=== PATIENT | female | born 1955 | race Two or more races ===

== ENCOUNTER 2020-10-03 14:21 | Outpatient (REF) | payer MEDICAID, SELFPAY ==
--- NOTE | ~2020-10-03 | XR_ITS ---
EXAMINATION: XR CHEST CLINICAL INFORMATION: Chest pain per COMPARISON: None TECHNIQUE: 2 views of the chest were obtained. FINDINGS: No significant abnormality is noted involving the heart, lungs, mediastinum, bony thorax or soft tissues. XR/XR chest 2V IMPRESSION: Unremarkable chest exam
== END 2020-10-03 14:22 | disposition home or self-care (01) ==
LOC: HO.XRAY 14:21
PROVIDERS: PCP General Practice; Visit Provider General Practice
DX: R07.89 Other chest pain (principal)
CPT/HCPCS: 71046

== ENCOUNTER 2020-10-17 14:25 | Outpatient (REF) | payer MEDICAID, SELFPAY ==
--- NOTE | ~2020-10-17 | MM_ITS ---
EXAMINATION: MM SCREENING DIGITAL BREAST TOMOSYNTHESIS, BILATERAL CLINICAL INFORMATION: Screening. Asymptomatic. Age 65. No known family history breast cancer. Prior mammography from [place] currently unavailable. The lifetime risk of breast cancer based on the Tyrer-Cuzick Model is 4%. COMPARISON: None. TECHNIQUE: Digital breast tomosynthesis is performed in both the craniocaudal and mediolateral oblique views along with computer-aided detection (CAD). Synthesized 2D images are generated from the tomosynthesis. FINDINGS: There are scattered areas of fibroglandular density (ACR BI-RADS breast composition Category b). There are no significant masses, abnormal calcifications, or other abnormalities. The axilla and skin contours are unremarkable. MM/MM tomosynthesis screening BI IMPRESSION: No mammographic evidence of malignancy. ASSESSMENT: BI-RADS 1: Negative RECOMMENDATION: Routine annual mammography screening. This patient's information was entered into a reminder system with a target due date for their next mammogram.
== END 2020-10-17 14:26 | disposition home or self-care (01) ==
LOC: HO.MAMMO 14:25
PROVIDERS: Visit Provider General Practice
DX: Z12.31 Encounter for screening mammogram for malignant neoplasm of breast (principal)
CPT/HCPCS: 77063; 77067

== ENCOUNTER 2020-10-22 15:37 | Emergency (ER) | payer MEDICAID, SELFPAY ==
[2020-10-22 15:42] VITALS: BP 148/70; PULSE 121; RESP 18; TEMP 36.7; O2SAT 97; BMI 28.8
--- NOTE | 2020-10-22 17:25 | ED.NECK ---
HPI - Neck Pain/Injury General Chief Complaint: Neck Pain/Injury Stated Complaint: back pain Time Seen by Provider: 10/22/20 16:49 Source: patient Mode of arrival: ambulatory History of Present Illness HPI Narrative: 65-year-old female with no significant past medical history presenting to the ED complaining of neck/shoulder pain x5 days, and hemorrhoid pain secondary to straining. Reports woke up with neck pain, denies known injury/trauma or falls. Reports pain radiates to head and upper back. Denies numbness, tingling, weakness, visual changes, nausea/vomiting, urinary incontinence/retention, rectal bleeding/black stool Does not take anticoagulation MD complaint: neck pain Related Data Previous Rx's Medication Instructions Recorded acetaminophen [Tylenol Extra 500 mg PO Q6H PRN #20 tab 10/22/20 Strength] hydrocodone-acetaminophen 1 tab PO Q8H PRN 3 Days #9 tab 10/22/20 hydrocortisone [Anti-Itch (HC)] 1 appl TOPICAL BID PRN #28.35 g 10/22/20 lidocaine [Lidoderm] 1 patch TOPICAL DAILY PRN #30 ea 10/22/20 MDD remove after 12 hours naproxen 500 mg PO BID PRN 10 Days #20 tab 10/22/20 Allergies Allergy/AdvReac Type Severity Reaction Status Date / Time No Known Allergies Allergy Verified 10/22/20 16:49 Review of Systems Review of Systems: Constitutional: No Fever, No Chills ENT/Mouth: No Hearing loss, No Ear Pain, No sore throat, No Rhinorrhea Eyes: No Eye Pain, No Swelling, No Redness, No Vision Changes Cardiovascular: No Chest Pain, No SOB, No Edema Respiratory: No Cough, No Dyspnea Gastrointestinal: No Nausea, No Vomiting, No Diarrhea, No Constipation, No Abdominal pain Genitourinary: No Hematuria, No Urinary Incontinence/retention, No Urgency, No Urinary Flow Changes, + hemorrhoid Musculoskeletal: No joint pain, No Myalgias, No Joint Swelling Skin: No Skin Lesions, No rash Neuro: No Weakness, No Numbness, No Paresthesias, No Loss of Consciousness, No Dizziness, + Headache Yes all other systems are reviewed and are negative Neurologic: Denies Sensory deficit (Neuro) [facility] Social History Social History Advance Directives: No Advance Directives Information Provided: No Physical Exam Vital Signs: Vital Signs: Last Vital Signs Temp 99.2 F 10/22/20 17:27 Pulse 99 10/22/20 17:27 Resp 16 10/22/20 17:27 BP 137/71 10/22/20 17:27 Pulse Ox 97 10/22/20 17:27 Body Mass Index 28.8 Const: General: cooperative, healthy appearing, comfortable and no acute distress Orientation/consciousness: patient oriented x3 Limitations: no limitations HENMT: Head: Yes normal to inspection, Yes normocephalic and Yes atraumatic Ears: hearing grossly normal bilaterally General nose exam: Normal external nose present Face and sinus: Yes normal facial exam Eyes: General: appearance normal, both eyes and all related structures EOM: EOMs intact bilaterally Neck: Other: Limited ROM of neck secondary to pain. No midline spinous tenderness throughout. Bilateral paraspinal/bilateral trapezius muscle tenderness to palpation Neck: Yes normal visual inspection Resp: Effort & Inspection: normal respiratory effort Cardio: Rate: regular rate GI: Inspection: Yes normal to inspection Palpation (GI): Soft to palpation, nontender, no guarding and not rigid : Other: External hemorrhoid noted to 2o'clock region without evidence of thrombosis or cellulitis. No bleeding Back/Spine/Pelvis: Other: No midline thoracic/lumbar spinous tenderness or step-offs. Bilateral thoracic MSK tenderness to palpation Skin: Rashes: no rashes Wounds: no wounds Neuro: Other: No saddle anesthesia, ambulating with steady gait General: patient oriented x3, tone normal, moves all extremities and no focal motor deficits Gait exam (Neuro): Normal gait present Motor exam (neuro): 5/5 motor strength present throughout Sensory Exam: No Sensory deficit (Neuro) Extrem: General: Yes normal to inspection MDM - Neck Pain/Injury MDM Narrative Medical decision making narrative: 65-year-old female with no significant past medical history presenting to the ED complaining of neck/shoulder pain x5 days, and hemorrhoid pain secondary to straining. On exam initially tachycardic likely from pain, no midline spinous tenderness throughout or red flag symptoms. External hemorrhoid noted on rectal. Likely MSK pain/strain. Unlikely cauda equina, cord compression, CVT, cervical dissection, or intra-abdominal pathology Discharge Plan Discharge Clinical Impression: Strain of neck muscle, External hemorrhoid Patient Disposition: Home, Self-Care Instructions: Hemorrhoids (ED), Acute Neck Pain (ED) Additional Instructions: Your pain is likely musculoskeletal [place] is an opiate pain medication it can make you drowsy, do not drive, drink alcohol, or operate machinery while taking it, take only for the next 3 days for severe pain Naproxen as an anti-inflammatory / pain medication, take with food Lidoderm patches are numbing patches, apply to painful area In addition take Tylenol at home, be aware [place] has Tylenol mixed in do not exceed 4 g of Tylenol and 1 day In addition apply hydrocortisone ointment your hemorrhoids. Follow up with her primary care doctor. If symptoms persist or worsen, pain becomes unbearable, you developed urinary retention or incontinence, or weakness return to the ED Es probable que deluna dolor sea musculoesquel?alba [place] es un analg?sico opi?closing specialist que puede causarle somnolencia, no conduzca, no yvette alcohol ni opere maquinaria mientras lo karime, t?garza solo jill los pr?ximos 3 d?as para el dolor intenso Naproxeno kelsey medicamento antiinflamatorio / analg?sico, jj con alimentos. Los parches de Lidoderm son parches que adormecen, se aplican al ?umu dolorida Adem?s, tome Tylenol en casa, tenga en cuenta que Tay tiene Tylenol mezclado. No exceda los 4 g de Tylenol y 1 d?a. Adem?s aplica un kelsey?ento de hidrocortisona a tus hemorroides. Jose R un seguimiento con deluna m?dico de atenci?n primaria. Si los s?ntomas persisten o empeoran, el dolor se vuelve insoportable, desarroll? retenci?n urinaria o incontinencia, o debilidad regrese al servicio de urgencias Prescriptions: New hydrocortisone [Anti-Itch (HC)] 1 % ointment 1 appl topical BID PRN (Reason: hemorrhoids) Qty: 28.35 RF: 0 acetaminophen [Tylenol Extra Strength] 500 mg tablet 500 mg PO Q6H PRN (Reason: pain or fever) Qty: 20 RF: 0 lidocaine [Lidoderm] 5 % adhesive patch,medicated 1 patch topical DAILY MDD remove after 12 hours PRN (Reason: pain) Qty: 30 RF: 0 naproxen 500 mg tablet 500 mg PO BID PRN (Reason: pain) 10 Days Qty: 20 RF: 0 hydrocodone-acetaminophen 5-325 mg tablet 1 tab PO Q8H PRN (Reason: pain, severe) 3 Days Qty: 9 RF: 0 Referrals: Naomi Kim MD [Primary Care Provider] - 2 days Print Language: Kuwaiti
[2020-10-22 17:27] VITALS: BP 137/71; PULSE 99; RESP 16; TEMP 37.3; O2SAT 97
[2020-10-22] MEDS: Ketorolac Tromethamine 30 MG/ML VIAL IM (17:32)
[2020-10-22] MEDS: diazePAM 5 MG TABLET PO (17:33)
[2020-10-22] MEDS: Acetaminophen 325 MG TABLET 650 MG PO (17:33)
== END 2020-10-22 18:21 | disposition home or self-care (01) ==
PROVIDERS: Emergency Provider Emergency Medicine; PCP General Practice
DX: S16.1XXA Strain of muscle, fascia and tendon at neck level, initial encounter (principal); X58.XXXA Exposure to other specified factors, initial encounter; K64.4 Residual hemorrhoidal skin tags; Y93.9 Activity, unspecified; Y92.9 Unspecified place or not applicable; Y99.9 Unspecified external cause status
CPT/HCPCS: 96372; 99284; J1885

== ENCOUNTER 2021-01-31 13:33 | Outpatient (REF) | payer MEDICAID, SELFPAY ==
--- NOTE | 2021-01-31 15:26 | MHC.AU.ANR ---
Adult Audiological Evaluation Date of Visit: 01/31/21 Feed Crusher Used: Tristanian translation by her son Reason for Appointment: Audiological evaluation due to concerns for decreased hearing. Patient notes that she often has to ask for repetition and has difficulty understanding certain voices. She notes that has to turn the TV up to be able to hear it clearly. She notes that her left ear is often itchy and sometimes has white discharge. Does patient feel they have a hearing loss?: Yes If Yes, Which Ear?: Both Ears Has hearing been tested previously?: No Hearing Handicap Inventory: HHIE SCORE: 10 Based on HHIE score, patient has: Mild to moderate perceived hearing handicap Medical History: Medical History: Unremarkable Medical History Medication List: Ibuprofen PRN Otoscopy: Right Ear: Unremarkable Left Ear: Unremarkable Tympanometry: Tympanometry performed due to: To assess integrity of the middle ear system Right Ear: Normal Middle Ear System (Type A) Left Ear: Normal Middle Ear System (Type A) Hearing Evaluation: Transducer(s) Used: Insert Earphones, Bone Conduction Method: Conventional Audiometry Stimuli Used: Pure Tones Right Ear: Description of Hearing: Mild sensorineural hearing loss from 250-4000 Hz, sloping to a moderate hearing loss from 6252-6353 Hz. Left Ear: Description of Hearing: Mild sensorineural hearing loss from 250-4000 Hz, sloping to a moderate hearing loss from 8474-4273 Hz. Speech Recognition Threshold (SRT): Method Used: Monitored Live Voice Stimuli Used: Spondee Words Right Ear: 40 dBHL Left Ear: 40 dBHL Word Discrimination: Method: Recorded Lists Word Lists Used: NU-6 Right Ear: 92% at 80 dBHL Left Ear: 100% at 80 dBHL Recommendations: Audiological re-evaluation in one year. Trial with amplification is recommended. Medical clearance from a physician is required before fitting. Hearing aid(s) will be ordered after approval is received. Hearing Aid Fitting will be scheduled when all materials arrive. Patient is interested in trying binaural hearing aids. Discussed options and patient is interested in rechargeable ELIGIO style hearing aids. Diagnosis: Primary Diagnosis: H90.3 Bilateral Sensorineural Hearing Loss Services Performed: Services Performed: Comprehensive Audiological Evaluation (CPT 33568) Tympanometry (CPT 96610) Signature: Provider: Kaushik Reynolds, CCC-A
--- NOTE | 2021-01-31 15:27 | MHC.AU.MED ---
Medical Clearance for Hearing Instrumentation Date: 02/07/21 Patient Name: Carolyn Grace Date of : 1955 Primary Care Provider: Referring Provider: Isaura Moreno MD We have seen your patient on 02/07/21 and have determined that they are a candidate for amplification (See accompanying report). Specifically, they would benefit from: Hearing aid use in both ears There is a statute that addresses Medical Evaluation Requirements prior to fitting a patient with a hearing aid. According to [place] statute 265 CMR:6.03(1), (a) General. Except as provided in 265 CMR 6.03(1)(b), a supervisor shearing shall not sell a hearing aid unless the prospective user has presented to the supervisor shearing a written statement signed by a licensed physician that states that the patient's hearing loss has been medically evaluated and the patient may be considered a candidate for a hearing aid. The medical evaluation must have taken place within the preceding six months. Please note: Due to the [place] Statute referenced above, we cannot accept a signature other than that of a licensed physician. CUSHION FORMER and PA signatures cannot be accepted. I am in agreement with the above recommendation. There is no medical contraindication for hearing instrumentation. Physician Signature Date Physician Name (Printed)
--- NOTE | 2021-01-31 15:31 | MHC.AU.HAS ---
Hearing Aid Evaluation Date of Visit: 01/31/21 Registered Nurse Maternity Used: Mongolian translation by her son Historical Information: Description of Hearing: Mild to moderate sensorineural hearing loss bilaterally. Current personal amplification information, if applicable: None, new user Summary: Binaural amplification is recommended to help facilitate improved communication given Ms. Grace's hearing loss and expressed hearing difficulties. Hearing aid options were discussed. She is interested in rechargeable ELIGIO hearing aids. Hearing Aid Prescription: Based on the individual?s shared listening needs, communication environments, dexterity, desire for connectivity, and personal preferences, the following prescription for amplification has been made: Right ear: Business Risk Analyst: Phonak Model: Audeo P70-R Battery Size: Rechargeable Color: P8 - Black Date Night Caregiver: Size 0 M Type of Dome: Open Left ear: Left ear prescription to be same as Right Hearing Aid above: Business Risk Analyst: Phonak Model: Audeo P70-R Battery Size: Rechargeable Color: P8 - Black Date Night Caregiver: 0 M Type of Dome: Open Plan of Care: Medical Clearance to be requested from PCP/ENT. Hearing Instrument Fitting to be scheduled when materials arrive. Hearing aids will be ordered once MD clearance is received. Primary Diagnosis: H90.3 Bilateral Sensorineural Hearing Loss Signature: Provider: Kaushik Reynolds, CCC-A
== END 2021-01-31 13:34 | disposition home or self-care (01) ==
LOC: HO.SH 13:33
PROVIDERS: Visit Provider Family Medicine
DX: Z46.1 Encounter for fitting and adjustment of hearing aid (principal); H90.3 Sensorineural hearing loss, bilateral
CPT/HCPCS: 92557; 92567; 92591

== ENCOUNTER → 2021-02-05 14:39 | Outpatient (BNVA) | payer MEDICAID, SELFPAY | PROVIDERS: PCP General Practice; Visit Provider Internal Medicine | DX: R07.2 Precordial pain (principal); R94.31 Abnormal electrocardiogram [ECG] [EKG] | CPT/HCPCS: 93005; 99202 ==

== ENCOUNTER 2021-02-09 16:34 | Emergency (ER) | payer MEDICAID, SELFPAY ==
--- NOTE | ~2021-02-09 | XR_ITS ---
EXAMINATION: XR FOOT, RIGHT CLINICAL INFORMATION: Right heel pain. No injury COMPARISON: None TECHNIQUE: AP, lateral, and oblique views of the right foot. FINDINGS: Bones are normal anatomic alignment with no acute fracture or dislocation seen. Calcaneal heel spurs are noted at the attachment point of the Achilles tendon and plantar aponeurosis. No bony destructive lesions or erosions. No radiopaque foreign body or soft tissue gas. XR/XR foot RT min 3V IMPRESSION: Calcaneal heel spurs seen at the attachment point of the Achilles tendon and plantar aponeurosis. No acute bony abnormality.
[2021-02-09 16:53] VITALS: BP 154/78; PULSE 99; RESP 18; TEMP 36.7; O2SAT 100; BMI 28.3
--- NOTE | 2021-02-09 18:11 | ED.GENADULT ---
HPI - General Adult General Chief complaint: General Medical Stated complaint: Heel pain Time Seen by Provider: 02/09/21 17:24 Source: patient Mode of arrival: ambulatory Limitations: language barrier History of Present Illness HPI narrative: 66-year-old female presents with 2 weeks of right heel pain. The heel pain is not worse in the morning, it is bad any tenderness today. Patient has not had any prior injury. The pain is an 8/10 and is throbbing. Related Data Home Medications Medication Instructions Recorded Confirmed loratadine 10 mg tablet 10 mg PO DAILY 02/05/21 02/05/21 Previous Rx's Medication Instructions Recorded acetaminophen 500 mg tablet 500 mg PO Q6H PRN #20 tab 10/22/20 (Tylenol Extra Strength) prednisone 20 mg tablet 40 mg PO DAILY 5 Days #10 tab 02/09/21 Allergies Allergy/AdvReac Type Severity Reaction Status Date / Time No Known Allergies Allergy Verified 02/09/21 16:53 Review of Systems Constitutional: Constitutional: Denies body ache(s), Denies chills, Denies fatigue, Denies fever(s), Denies headache(s), Denies malaise and Denies weakness Eyes: Eyes: Denies diplopia ENT: Denies vertigo, Denies dizziness, Denies headache(s) and Denies throat swelling Cardiovascular: Cardiovascular: Denies chest pain, Denies syncope, Denies leg edema, Denies lightheadedness, Denies Loss of Consciousness, Denies palpitations and Denies dyspnea Respiratory: Respiratory: Denies chest congestion, Denies cough and Denies dyspnea Musculoskeletal: Comments: Right heel pain Neurologic: Denies confusion, Denies vertigo, Denies dizziness, Denies syncope, Denies headache(s) and Denies weakness Psychiatric: Psychiatric: Denies anxiety, Denies confusion and Denies depression Endocrine: Endocrine: Denies fatigue and Denies palpitations Allergic/Immunologic: Allergic/Immunologic: Denies throat swelling PMFSH Past Medical History Medical History No active medical problems Family History Family History Father No problems noted. Mother CAD (coronary artery disease) Social History Social History Patient Tobacco Use Status: Never used Tobacco Advance Directives: No Advance Directives Information Provided: No Patient : No Physical Exam Vital Signs: Vital Signs: Last Vital Signs Temp 98.0 F 02/09/21 16:53 Pulse 99 02/09/21 16:53 Resp 18 02/09/21 16:53 BP 154/78 H 02/09/21 16:53 Pulse Ox 100 02/09/21 16:53 Body Mass Index 28.3 Const: General: No confusion Nutritional Appearance: well nourished Orientation/consciousness: No confusion Limitations: no limitations Eyes: Conjunctivae: conjunctivae normal Pupils: Equal, round and reactive pupils present EOM: EOMs intact bilaterally Resp: Effort & Inspection: normal respiratory effort and able to speak in complete sentences Auscultation: clear to auscultation bilaterally, no crackles, no rales, no rhonchi and no wheezes Cardio: Rate: regular rate Rhythm: regular rhythm Heart sounds: S1 normal heart sound present and S2 normal heart sound present Skin: General skin exam: no rashes or lesions noted Neuro: General: No confusion Cranial nerves: Yes Equal, round and reactive pupils present Extrem: Right lower extremity: normal to inspection, full ROM, normal capillary refill and foot Details: normal capillary refill, normal to inspection, tenderness Location: of the calcaneus Details: with squeeze, toes with normal ROM, vascular exam Details: dorsalis pedis pulse present, posterior tibial pulse present and normal capillary refill, tendon exam Details: active flexion normal and active extension normal and motor-sensory exam Details: light-touch normal; Negative for no unusual warmth, edema noted, no abrasion, no ecchymosis and no crepitus Psych: Appearance: grossly normal Affect: normal affect Attitude: cooperative Thought process: Normal thought process present Course Course Course Narrative: 56-year-old female presents with 2 weeks of right heel pain. Patient has no pain in her right calf. Patient is tender with heel squeeze. XR shows: Calcaneal heel spurs seen at the attachment point of the Achilles tendon and plantar aponeurosis. No acute bony abnormality. Looks like plantar fasciitis. Counseled stretching exercises, prednisone, sleep with boot to keep foot flexed. Follow-up with primary care provider. Discharge Plan Discharge Clinical Impression: Plantar fasciitis of right foot Patient Disposition: Home, Self-Care Instructions: Plantar Fasciitis (ED), Plantar Fasciitis Exercises (ED) Additional Instructions: Please take Tylenol as needed. Please take prednisone as prescribed. Please stress show your right calf as we discussed. Please sleep with the boot on as it will keep your foot flexed and will help with pain. Please call your primary care provider tomorrow for follow-up appointment [facility] Tylenol seg?n sea necesario. [facility] prednisona seg?n lo prescrito. Por favor, margareth hincapi? en mostrar deluna pantorrilla derecha kelsey discutimos. Duerma con la bota puesta ya que mantendr? deluna pie flexionado y ayudar? con el dolor. Llame a deluna proveedor de atenci?n primaria ma?fernando para gerald yefri de seguimiento. Prescriptions: New prednisone 20 mg tablet 40 mg PO DAILY 5 Days Qty: 10 RF: 0 No Action acetaminophen [Tylenol Extra Strength] 500 mg tablet 500 mg PO Q6H PRN (Reason: pain or fever) Qty: 20 RF: 0 loratadine 10 mg tablet 10 mg PO DAILY RF: 0 Print Language: Serbian
[2021-02-09] MEDS: Acetaminophen 325 MG TABLET 650 MG PO (18:37)
--- NOTE | 2021-02-09 19:20 | PC.NURSE ---
THERE ARE NO WALKING BOOT IN PT SIZE FOOT. PT TO F/U WITH TO GET BOOT.
== END 2021-02-09 19:19 | disposition home or self-care (01) ==
PROVIDERS: Emergency Provider Emergency Medicine
DX: M72.2 Plantar fascial fibromatosis (principal); M79.671 Pain in right foot; Z79.899 Other long term (current) drug therapy
CPT/HCPCS: 73630; 99283; 99284

== ENCOUNTER 2021-03-12 13:59 | Outpatient (REF) | payer MEDICAID, SELFPAY | END 2021-03-12 14:00 | disposition home or self-care (01) | LOC: HO.HAP 13:59 | PROVIDERS: Visit Provider General Practice | DX: Z13.89 Encounter for screening for other disorder (principal) ==

== ENCOUNTER → 2021-03-18 13:40 | Outpatient (BNVA) | payer MEDICAID, SELFPAY | PROVIDERS: PCP General Practice; Referring Provider General Practice; Visit Provider Nurse Practitioner Family | DX: R07.2 Precordial pain (principal); R06.02 Shortness of breath; R00.2 Palpitations; R94.31 Abnormal electrocardiogram [ECG] [EKG]; Z79.899 Other long term (current) drug therapy | CPT/HCPCS: 99212 ==

== ENCOUNTER → 2021-04-02 14:37 | Outpatient (REF) | payer MEDICAID, SELFPAY ==
--- NOTE | 2021-03-12 09:53 | CA_ITS ---
Transthoracic Echocardiogram Patient (Last, First, Middle): Carolyn Kebede I Gender: Female Date of : 1955 Age: 66 Procedure Date: 03/12/2021 Procedure Type: Transthoracic Echocardiogram Location: OP Height: 160.02 cm Weight: 71.67 kg BSA: 1.75 m2 Heart Rate: bpm BP: 130 / 80 mmHg Drum Drier Operator: TIERRA Peres MD: Gilberto Duran MD Grinding Room Inspector: Christian Frias MD Symptoms: R07.2 - Precordial pain Study Quality: Fair ECG Rhythm: Sinus Conclusions: - 1. Normal LV systolic function with impaired relaxation filling pattern 2. Normal cardiac valvular Doppler 3. Normal RV systolic pressure 4. No pericardial effusion Findings Left Ventricle Normal left ventricular size, thickness, and systolic function. The visually estimated ejection fraction is between 60-65%. Spectral Doppler is indicative of an impaired relaxation filling pattern. E/E prime ratio is between 8 and 15 consistent with indeterminate filling pressures. Right Ventricle Normal right ventricular cavity size and systolic function. Atria Both atria are normal in size. There is no evidence of interatrial shunt. Aortic Valve Normal aortic valve structure and function. There is no aortic valve stenosis. There is no aortic valve regurgitation. Mitral Valve Normal mitral valve structure and function. There is trace mitral valve regurgitation. There is no mitral valve stenosis. Pulmonic Valve The pulmonic valve is likely normal. Tricuspid Valve Normal tricuspid valve structure. There is trace tricuspid valve regurgitation. The right ventricular systolic pressure is normal. The right ventricular systolic pressure is 22 mmHg. Normal right atrial pressure. There is no evidence of pulmonary hypertension. Great Vessels All visible segments of the aorta are normal in size. The pulmonary artery was not well visualized. Venous The inferior vena cava is normal in size and collapses greater than 50% with inspiration. Pericardium/Pleural There is no evidence of pericardial effusion. Prior Study Comparison No prior study available for comparison. Measurements 2D Linear Measurements IVSd: 0.84 0.6-0.9/0.6-1.0 cm LVIDd: 3.99 3.9-5.3/4.2-5.9 cm LVIDd Index: 2.28 2.4-3.2/2.2-3.1 cm/m2 LVIDs: 2.99 2.0-3.6 cm LVPWd: 0.80 0.7-1.1 cm Ao Root: 2.90 2.1-3.5 cm LA Diam: 3.50 2.7-3.8/3.0-4.0 cm LAIDs Index: 2.00 1.5-2.3 cm/m2 LV Mass: 119.23 67-162/88-224 g LV Mass Index: 68.13 43-95/49-115 g/m2 LVOT Diam: 2.00 3.0+(-)1.3 cm 2D Systolic Function EF 4C: 64.40 >55% EF 2C: 54.60 >55% EF BiP: 57.90 >55% Mitral Valve MV Pk E: 0.76 MV PK A: 0.92 MV Decel Time: 237.00 E/A: 0.80 E'Lateral: 9.14 E'Medial: 6.31 E/E' Med: 12.10 E/E' Lat: 8.30 PHT: 69.00 MVA PHT: 3.19 Decel [place]: 3.22 Aortic Valve AoV Pk Fran: 1.58 AoV Mn Fran: 1.05 AoV VTI: 0.36 AoV Pk Grad: 10.00 Aov Mn Grad: 5.00 HASMUKH Cont.VTI: 1.84 LVOT LVOT Pk Fran: 0.91 LVOT Mn Fran: 0.73 LVOT VTI: 0.21 LVOT Pk Grad: 3.00 LVOT Mn Grad: 2.00 LVOT Diam: 2.00 LVOT Area: 3.14 Diastolic Function MV Pk E: 0.76 MV Pk A: 0.92 E/A: 0.80 E'Medial: 6.31 E/E' Med: 12.10 E' Laterial: 9.14 E/E' Lat: 8.30 Right Ventricle TAPSE (mm): 1.83 TVS' Fran: 9.14 Tricuspid Valve TR Pk Fran: 2.20 TR Pk Grad: 19.00 RA Press: 3.00 RVSP: 22.00 Great Vessels Aorta Ao Root-2D: 2.90 2.0-3.7 cm Ao Asc: 2.90 2.1-3.4 cm Ao Arch: 2.30 Updated in Other Vendor System with Status of Final Christian Frias MD electronically signed on 03/12/2021 2:57:49 PM with status of Final
--- NOTE | 2021-03-12 09:53 | CA_ITS ---
Acquisition Time: 2021-03-12 10:47:35 Total Exercise Time: 00:06:21 Test Indications: R07.2 - Precordial pain Medications: Protocol: MOD RAFAELA Max HR: 157 BPM 100% of Pred: 156 BPM Max BP: 174/070 mmHG Max Work Load: 3.6 METS Exercise stress test with exercise 6 min 21 sec of Modified Rafaela protocol, achieving 3.5 MET workload and 100% MPHR, with moderate shortness of breath, no chest discomfort, without arrythmia, with normotensive response to exercise, without EKG changes meeting criteria for ischemia. Initially a Rafaela protocol was attempted X2 and patient had much difficulty walking on treadmill. She was better able to walk with the modified Rafaela protocol. Test reviewed with Dr Cruz. Referred By: Gilberto Duran Overread By: LEANDRA BERNAL
== END ==
LOC: HO.CARD 14:37
PROVIDERS: Visit Provider Internal Medicine
DX: R07.2 Precordial pain (principal)
CPT/HCPCS: 93017; 93306

== ENCOUNTER 2021-04-09 14:29 | Outpatient (REF) | payer MEDICAID, SELFPAY | END 2021-04-09 14:30 | disposition home or self-care (01) | LOC: HO.HAP 14:29 | PROVIDERS: Visit Provider General Practice | DX: Z46.1 Encounter for fitting and adjustment of hearing aid (principal); H90.3 Sensorineural hearing loss, bilateral | CPT/HCPCS: V5011; V5020; V5160; V5261 ==

== ENCOUNTER → 2021-04-22 14:24 | Outpatient (BNVA) | payer MEDICAID, SELFPAY | PROVIDERS: PCP General Practice; Referring Provider General Practice; Visit Provider Nurse Practitioner Family | DX: R07.2 Precordial pain (principal); R06.02 Shortness of breath; R00.2 Palpitations; R94.31 Abnormal electrocardiogram [ECG] [EKG] | CPT/HCPCS: 99212 ==

== ENCOUNTER → 2021-04-23 13:29 | Outpatient (REF) | payer MEDICAID, SELFPAY ==
--- NOTE | 2021-04-23 13:39 | ECG_ITS ---
Hook-up date: 2021-04-23 14:00:00 Duration: 41:32:00 Test Indications: Palpitations Medications: [id number] QRS complexes 1 Ventricular ectopics which represent <1 % of total QRS comp. 7 Supraventricular ectopics which represent <1 % of total QRS comp. * Paced QRS complexs which represent % of total QRS comp. VENTRICULAR ECTOPY 1 Isolated 0 Bigeminal Cycles 0 Couplets 0 Runs 0 Beats in Runs * Beats LONGEST at * BPM at :: -- * Beats FASTEST at * BPM at :: -- SUPRAVENTRICULAR ECTOPY 5 Isolated 1 Couplets 0 Runs 0 Beats in Runs * Beats LONGEST at * BPM at :: -- * Beats FASTEST at * BPM at :: -- HEART RATES 59 MIN at 05:06:35 2021-04-24 79 AVG 118 MAX at 13:19:33 2021-04-24 LONGEST RR 1.2240 secs at 08:26:27 2021-04-24 S-T LEVELS Channel 1 - 128 mm at 14:00:00 2021-04-23 - 128 mm at 14:00:00 2021-04-23 Channel 2 - 128 mm at 14:00:00 2021-04-23 - 128 mm at 14:00:00 2021-04-23 Channel 3 - 128 mm at 03:31:91 -- - 128 mm at 03:31:91 Basic rhythm Normal sinus rhythm No long pause or profound bradycardia Rare ectopics Patient did not report any symptoms in the diary Referred By: Kristy Amaro Overread By: LILIBETH MANSFIELD MD
== END ==
LOC: HO.CARD 13:29
PROVIDERS: Visit Provider General Practice
DX: R00.2 Palpitations (principal); R06.02 Shortness of breath
CPT/HCPCS: 93226

== ENCOUNTER 2021-04-23 14:46 | Outpatient (REF) | payer MEDICAID, SELFPAY | END 2021-04-23 14:47 | disposition home or self-care (01) | LOC: HO.HAP 14:46 | PROVIDERS: Visit Provider General Practice | DX: Z13.89 Encounter for screening for other disorder (principal) ==

== ENCOUNTER → 2021-04-30 08:33 | Outpatient (REF) | payer MEDICAID, SELFPAY ==
--- NOTE | ~2021-04-30 | NM_ITS ---
Myocardial perfusion study Indication: Abnormal EKG to evaluate for myocardial ischemia Technique: The patient was brought in for a Lexiscan perfusion study on 04/30/2021. Patient performed low-level exercise and was injected 0.4 mg of Lexiscan intravenously. Within a minute of injection, 25 mCi of sestamibi was given intravenously. Images were obtained using the SPECT gamma camera interlaced with the gating device. Images were obtained in supine position. Resting perfusion study was performed on 05/01/2021. Patient was administered 25 mCi of sestamibi intravenously at rest. Images were then obtained in supine position. Images obtained with and without CT attenuation. Total DLP 95 mGy-cm. Images were processed with the software and compared side to side in short axis, horizontal long axis and vertical long axis views. Findings: The stress perfusion study showed non attenuated images show normal uptake of radiotracer in all segments of LV myocardium. Attenuation corrected images show mildly reduced uptake in the apex and inferoapical wall of the LV myocardium.. The gated study shows normal LV systolic function with calculated LVEF of 59%. LV cavity is mildly dilated size. The gated study shows normal systolic wall thickening and contraction of segments. Resting study shows non attenuated images show normal uptake of radiotracer in all segments of LV myocardium. Gating at rest reveals normal systolic wall motion with visually estimated ejection fraction at greater than 60%. The findings are consistent with normal myocardial perfusion. NM/NM landry perf SPECT rest & str Impression: 1. Myocardial perfusion imaging study shows normal myocardial perfusion 2. Gated LVEF is 59% 3. Transient ischemic dilatation not present EKG is nondiagnostic for ischemia
--- NOTE | 2021-04-30 08:36 | CA_ITS ---
Acquisition Time: 2021-04-30 09:39:57 Total Exercise Time: 00:02:00 Test Indications: Abnormal ECG Medications: Protocol: LEXISCAN Max HR: 115 BPM 73% of Pred: 156 BPM Max BP: 122/072 mmHG Max Work Load: 1.0 METS Pharmacological stress test with Lexiscan injection, while sitting and kicking her legs, without anginal symptoms, without arrythmia, with normotensive response to injection, with nondiagnostic EKG for ischemia. At 7 min recovery she reported some tightness in her chest and had new mild nasal congestion which was treated with Aminophylline 75mg to reverse Lexiscan with resolution of symptoms. Nuclear images pending. Test reviewed with Dr Frias. Referred By: Kristy Amaro Overread By: KRISTY AMARO
== END ==
LOC: HO.CARD 08:33
PROVIDERS: PCP General Practice; Visit Provider Nurse Practitioner Family
DX: R00.2 Palpitations (principal); R06.02 Shortness of breath; R07.2 Precordial pain; R94.31 Abnormal electrocardiogram [ECG] [EKG]
CPT/HCPCS: 78452; 93017; A9500; J0280; J2785

== ENCOUNTER → 2021-05-21 13:25 | Outpatient (BNVA) | payer MEDICAID, SELFPAY | PROVIDERS: PCP General Practice; Referring Provider General Practice; Visit Provider Nurse Practitioner Family | DX: R07.2 Precordial pain (principal); R06.02 Shortness of breath; R00.2 Palpitations; R94.31 Abnormal electrocardiogram [ECG] [EKG] | CPT/HCPCS: 99212 ==

== ENCOUNTER 2022-01-05 13:54 | Outpatient (REF) | payer MEDICARE, MEDICAID, SELFPAY ==
--- NOTE | 2022-01-05 16:19 | MHC.AU.HFU ---
Hearing Instrument Follow-Up- Binaural Date of Visit: 01/05/22 Right Ear: Stem Assembler: Phonak Model: Audeo P70-R Serial Number: [id number] Repair Warranty: 05/27/2024 Loss and Damage Warranty: 05/27/2024 Battery Size: Rechargeable Color: P8 - Black Ground Support Equipment Mechanic: Size 0 M Type of Dome: Small open Type of Wax Guard: Cerushield Dispensed By: [facility] Date of Fittin04/09/2021 Left Ear: Stem Assembler: Phonak Model: Audeo P70-R Serial Number: [id number] Repair Warranty: 05/27/2024 Loss and Damage Warranty: 05/27/2024 Battery Size: Rechargeable Color: P8 - Black Ground Support Equipment Mechanic: 0 M Type of Dome: Small open Type of Wax Guard: Cerushield Dispensed By: [facility] Date of Fittin04/09/2021 Follow-Up Summary: Patient reports the hearing aids have not been loud enough since they were initially fit and would like them louder. Cleaned both aids, changed wax guards and domes. Cleaned microphones. Both aids amplifying. Datalogging shows average of 14 hours wearing time. Increased both aids overall 4 dB per to patient's comfort while in office. Patient will be receiving reminder card for audiologic re-evaluation within the next few months. Recommendations: Please contact our clinic with any questions or concerns. Diagnosis Code(s): Primary Diagnosis: H90.3 Bilateral Sensorineural Hearing Loss Services Performed: [facility] Non-Quantity Charges: HACHECKB (MH>1 yr or new to us) Face to face appointment Signature: Provider: So Walls, [facility]-A
== END 2022-01-05 13:55 | disposition home or self-care (01) ==
LOC: HO.HAP 13:54
PROVIDERS: Visit Provider General Practice
DX: Z46.1 Encounter for fitting and adjustment of hearing aid (principal); H90.3 Sensorineural hearing loss, bilateral
CPT/HCPCS: 92593

== ENCOUNTER 2022-02-19 14:45 | Outpatient (REF) | payer MEDICARE, MEDICAID, SELFPAY ==
--- NOTE | ~2022-02-19 | XR_ITS ---
EXAMINATION: XR HIP, RIGHT CLINICAL INFORMATION: Chronic right hip pain. COMPARISON: None. TECHNIQUE: 2 views of the right hip. FINDINGS: Bones and soft tissues are normal. No fracture. Alignment is anatomic. Hip joint space is maintained. Incidental finding of sclerosis along the pubic symphysis, suggestive of pubic symphysitis. XR/XR hip RT min 2V IMPRESSION: Unremarkable right hip exam.
== END 2022-02-19 14:46 | disposition home or self-care (01) ==
LOC: HO.XRAY 14:45
PROVIDERS: PCP General Practice; Visit Provider General Practice
DX: M25.551 Pain in right hip (principal)
CPT/HCPCS: 73502

== ENCOUNTER 2022-02-24 13:02 | Outpatient (REF) | payer MEDICARE, MEDICAID, SELFPAY ==
--- NOTE | 2022-02-25 08:40 | MHC.AU.HFU ---
Hearing Instrument Follow-Up- Binaural Date of Visit: 02/24/22 Deputy Attorney General Used: Serbian- In Person Right Ear: Retoucher: Phonak Model: Audeo P70-R Serial Number: [id number] Repair Warranty: 05/27/2024 Loss and Damage Warranty: 05/27/2024 Battery Size: Rechargeable Color: P8 - Black Low Altitude Air Defense Officer: Size 0 M Type of Dome: Small open Type of Wax Guard: Cerushield Dispensed By: [facility] Date of Fittin04/09/2021 Left Ear: Retoucher: Phonak Model: Audeo P70-R Serial Number: [id number] Repair Warranty: 05/27/2024 Loss and Damage Warranty: 05/27/2024 Battery Size: Rechargeable Color: P8 - Black Low Altitude Air Defense Officer: 0 M Type of Dome: Small open Type of Wax Guard: Cerushield Dispensed By: [facility] Date of Fittin04/09/2021 Follow-Up Summary: Carolyn returned for routine hearing aid maintenance. She is overall satisfied with her hearing aids, especially since the volume was increased at her last visit. No programming changes were made today as her hearing remains stable. The hearing aids were cleaned, microphones vacuumed, and domes and wax guards replaced. Recommendations: Hearing instrument maintenance in 6 months, or sooner if needed. Please contact our clinic with any questions or concerns. Diagnosis Code(s): Primary Diagnosis: H90.3 Bilateral Sensorineural Hearing Loss Signature: Provider: Konrad Gu, [facility]
== END 2022-02-24 13:03 | disposition home or self-care (01) ==
LOC: HO.SH 13:02
PROVIDERS: Visit Provider General Practice
DX: Z01.118 Encounter for examination of ears and hearing with other abnormal findings (principal); H90.3 Sensorineural hearing loss, bilateral
CPT/HCPCS: 92557

== ENCOUNTER 2022-04-14 11:00 | Outpatient (RCR) | payer MEDICARE, MEDICAID, SELFPAY ==
[2022-04-01 13:09] VITALS: BP 148/75; PULSE 85; O2SAT 98
== END 2022-04-27 11:55 | disposition home or self-care (01) ==
LOC: HO.PT 11:00
PROVIDERS: PCP General Practice; Visit Provider General Practice
DX: M25.551 Pain in right hip (principal)
CPT/HCPCS: 97110; 97162

== ENCOUNTER 2023-01-29 12:50 | Outpatient (REF) | payer MEDICARE, MEDICAID, SELFPAY ==
--- NOTE | ~2023-01-29 | US_ITS ---
EXAMINATION: US VENOUS ULTRASOUND WITH DOPPLER LOWER EXTREMITY, RIGHT CLINICAL INFORMATION: Right leg swelling COMPARISON: None available. TECHNIQUE: Ultrasound of the deep veins is performed from the hip to the calf with compression sonography and color and pulse Doppler assessment. Spectral analysis with color-flow imaging is performed. FINDINGS: There is normal venous compression and respiratory variation and augmented flow. The visualized common femoral vein, superficial femoral vein, profunda femoral vein, popliteal vein, and the trifurcation region shows no evidence of deep venous thrombosis. There is no significant popliteal fossa cyst. If the patient's symptoms persist, followup ultrasound in 5 days 7 days might be of value to exclude proximal propagation from a non-visualized calf vein. US/US venous duplex LE RT IMPRESSION: No DVT demonstrated in the right lower extremity.
== END 2023-01-29 12:51 | disposition home or self-care (01) ==
LOC: HO.US 12:50
PROVIDERS: PCP General Practice; Visit Provider Nurse Practitioner Primary Care
DX: M79.604 Pain in right leg (principal)
CPT/HCPCS: 93971

== ENCOUNTER 2023-02-15 11:46 | Outpatient (REF) | payer OTHER, SELFPAY ==
[2023-02-15 13:53] LABS: Alanine Aminotransferase 13 U/L (0-31); Albumin Level 4.3 g/dL (3.5-5.0); Alkaline Phosphatase 143 U/L (39-117); Anion Gap 15 (12-20); Aspartate Amino Transferase 22 U/L (5-31); Bilirubin Total 0.7 mg/dL (0.0-1.0); Blood Urea Nitrogen 15 mg/dL (9-16); Calcium 9.9 mg/dL (8.4-10.2); Carbon Dioxide 25 mmol/L (22-29); Chloride 107 mmol/L (96-108); Cholesterol 201 mg/dL (<200); Estimated Glomerular Filt Rate > 60; Glucose Random 104 mg/dL (60-115); HDL Cholesterol 48 mg/dL (>40); LDL Cholesterol Calculated 132 mg/dL (<100); Potassium 4.6 mmol/L (3.3-5.1); Sodium 142 mmol/L (135-145); Total Protein 7.4 g/dL (6.5-8.0); Triglycerides 108 mg/dL (<150)
[2023-02-15 13:58] LABS: Estimated Average Glucose 117 mg/dL; Hemoglobin A1c % 5.7 % (<6.0)
== END 2023-02-15 11:47 | disposition home or self-care (01) ==
LOC: HO.HHCL 11:46
PROVIDERS: Visit Provider General Practice
DX: Z00.00 Encounter for general adult medical examination without abnormal findings (principal); R74.8 Abnormal levels of other serum enzymes
CPT/HCPCS: 36415; 80053; 80061; 83036

== ENCOUNTER 2023-03-09 12:55 | Outpatient (AMB) | payer MEDICARE, SELFPAY ==
--- NOTE | 2023-03-09 12:59 | MHC.OFFVIS ---
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 Complaints include pain over varicosities, swelling of lower extremities, cramping, fatigue, and heaviness of the lower extremities. It has been affecting there daily activities including walking. It is noted more so in right leg. Patient denies any previous venous surgery or injections. Patient denies any history of DVT/ PE. Patient denies any history of phlebitis. Trial of compression includes - [id number] They now present for vascular evaluation regarding their varicose veins. PFSH Medical History Hypercholesteremia No active medical problems Surgical History No pertinent past surgical history Family History Father No problems noted. Mother CAD (coronary artery disease) Social History Alcohol intake: never Patient Tobacco Use Status: Never used Tobacco Review of Systems Const Reports as per HPI ENT Reports no additional complaints Card Denies chest pain, Denies chest pain at rest and Denies chest pain with activity Resp Denies chest congestion and Denies cough GI Reports no additional complaints Musc Details: pain over varicosities, aching of lower extremities, swelling, cramping, heaviness and tiredness, itching Denies abnormal gait Skin/Breast Reports pruritus and Denies wounds Neuro Reports no additional complaints and Denies abnormal gait Psych Denies no additional complaints Physical Exam Vital Signs: BMI result Body Mass Index 31.0 Const General: cooperative, healthy appearing and comfortable Orientation/consciousness: oriented to person, oriented to place and oriented to time Neck Carotids: no bruits Chest Chest palpation & inspection: normal inspection of the chest and normal palpation of entire chest wall Resp Effort & Inspection: normal respiratory effort and able to speak in complete sentences Cardio Rate: regular rate Heart sounds: S1 normal heart sound present and S2 normal heart sound present Peripheral pulses: Peripheral pulses 2+ throughout GI Inspection: Yes normal to inspection Skin Other: +2 edema, large rope-like varicosities greater than 4 mm CEAP Classification C4 - skin color changes Ep - Etiology Primary As - superficial veins P - reflux General skin exam: dry skin Neuro General: oriented to person, oriented to place and oriented to time Extrem Right lower extremity: full ROM, normal capillary refill and edema Left lower extremity: full ROM, normal capillary refill and edema Psych Mental Status: mental status grossly normal Assessment & Plan Assessment & Plan (1) Varicose veins of right lower extremity with inflammation: Code(s): I83.11 - Varicose veins of right lower extremity with inflammation Plan: In short, the patient has evidence of venous insufficiency. I have discussed the pathophysiology with the patient. In addition I have provided informational material regarding venous disease to the patient. We have discussed conservative measures including compression, elevation, and exercise. I have also provided a handout regarding appropriate use of compression stockings and where to purchase good compression stockings as well. I have taken the liberty of ordering venous insufficiency testing with the patient. They will follow up with me after testing. The patient had an opportunity to ask questions regarding the treatment plan. All questions were answered. Imaging studies, laboratory studies and physical exam results were discussed and reviewed in detail. No major barriers to understanding were identified. The patient expressed understanding and agreement with the above treatment plan. The patient is aware they should contact our office by phone for worsening of the current condition or the appearance of new symptoms. Thank you for allowing me to participate in the vascular care of this patient. If you have any questions or concerns regarding the treatment for the above condition please do not hesitate to contact me. The office telephone contact is [phone]. This note is constructed using voice recognition software. While every effort has been made to ensure accuracy, supervisor boiler repair errors may have been included. Thank you for allowing me to participate in the care of your patient. Yours sincerely, Rikki Serrano MD, FACS, R.P.V.I. Orders: Orders US venous duplex LE BI 1 Week I83.11 - Varicose veins of right lower extremity with inflammation Coding Level of Care Code New Pt Level 4 (13522) Diagnoses Varicose veins of right lower extremity with inflammation I83.11
[2023-03-09 13:01] VITALS: BMI 31.0
== END 2023-03-09 13:31 | disposition home or self-care (01) ==
PROVIDERS: PCP General Practice; Visit Provider Surgery Vascular Surgery
DX: I83.11 Varicose veins of right lower extremity with inflammation (principal)
CPT/HCPCS: 99203

== ENCOUNTER → 2023-03-09 12:55 | Outpatient (BNVA) | payer MEDICARE, MEDICAID, SELFPAY | PROVIDERS: PCP General Practice; Visit Provider Surgery Vascular Surgery ==

== ENCOUNTER 2023-03-10 11:13 | Outpatient (REF) | payer MEDICARE, MEDICAID, SELFPAY | END 2023-03-10 11:14 | disposition home or self-care (01) | LOC: HO.MAMMO 11:13 | PROVIDERS: PCP General Practice; Visit Provider General Practice | DX: Z12.31 Encounter for screening mammogram for malignant neoplasm of breast (principal) | CPT/HCPCS: 77063; 77067 ==

== ENCOUNTER → 2023-03-10 11:30 | Outpatient (BNV) | payer MEDICARE, MEDICAID, SELFPAY | PROVIDERS: PCP General Practice; Visit Provider Radiology Diagnostic Radiology | DX: Z12.31 Encounter for screening mammogram for malignant neoplasm of breast (principal) | CPT/HCPCS: 77063; 77067 ==

== ENCOUNTER 2023-03-24 12:20 | Outpatient (REF) | payer MEDICARE, MEDICAID, SELFPAY ==
--- NOTE | ~2023-03-24 | US_ITS ---
EXAMINATION: US LOWER EXTREMITY VENOUS (REFLUX EXAM), BILATERAL CLINICAL INDICATION: Chronic venous insufficiency with lower extremity varicose veins with inflammation COMPARISON: None. TECHNIQUE: Color flow triplex imaging and compression Doppler was performed to evaluate both the deep and the superficial systems bilaterally. To evaluate the superficial system, the examination was performed in the upright position. Color-flow Doppler ultrasound and compression ultrasound were utilized. In addition, maneuvers were utilized to demonstrate reflux. FINDINGS: 1. DEEP VENOUS ULTRASOUND OF THE RIGHT LOWER EXTREMITY: Common Femoral Vein: Compressible, normal respiratory variation and augmented flow. Femoral Vein: Compressible, normal color flow and augmentation. Popliteal Vein: Compressible, normal augmentation. Deep Reflux: There is no evidence of reflux in the deep system in either the common femoral vein or the popliteal vein. There is no evidence of a Mcelroy's cyst. 2. SUPERFICIAL ULTRASOUND WITH DOPPLER OF RIGHT LOWER EXTREMITY: GREAT SAPHENOUS VEIN: Saphenofemoral Junction: 0.5 cm; Reflux: 0 ms Proximal Thigh: 0.4 cm; Reflux: 0 ms Mid Thigh: 0.3 cm; Reflux: 0 ms Above Knee: 0.2 cm; Reflux: 0 ms At Knee: 0.2 cm; Reflux: 0 ms Below Knee: 0.2 cm; Reflux: 0 ms Mid Calf: 0.2 cm; Reflux: 0 ms Ankle: 0.2 cm; Reflux: 0 ms DUPLICATED MEDIAL GREAT SAPHENOUS VEIN: Diameter: 0.2 cm Reflux: None DUPLICATED LATERAL GREAT SAPHENOUS VEIN: Diameter: None imaged Reflux: NA SMALL SAPHENOUS VEIN: Proximal: 0.2 cm; Reflux: 0 ms Distal: 0.2 cm; Reflux: 0 ms VEIN OF GIACOMINI: Size: NA Reflux: NA PERFORATORS: Location: None significant Size: NA Reflux: NA VARICOSITIES: Location: None significant. There are multiple small varicose veins measuring less than 3 mm in the thigh and calf Size: NA Reflux: NA 3. DEEP VENOUS ULTRASOUND OF THE LEFT LOWER EXTREMITY: Common Femoral Vein: Compressible, normal respiratory variation and augmented flow. Femoral Vein: Compressible, normal color flow and augmentation. Popliteal Vein: Compressible, normal augmentation. Deep Reflux: There is no evidence of reflux in the deep system in either the common femoral vein or the popliteal vein. There is a Mcelroy's cyst in the left popliteal fossa measuring 2.4 x 1.2 x 1.4 cm 4. SUPERFICIAL ULTRASOUND WITH DOPPLER OF LEFT LOWER EXTREMITY: GREAT SAPHENOUS VEIN: Saphenofemoral Junction: 0.5 cm; Reflux: 0 ms Proximal Thigh: 0.3 cm; Reflux: 0 ms Mid Thigh: 0.3 cm; Reflux: 0 ms Above Knee: 0.3 cm; Reflux: 0 ms At Knee: 0.2 cm; Reflux: 0 ms Below Knee: 0.2 cm; Reflux: 0 ms Mid Calf: 0.1 cm; Reflux: 0 ms Ankle: 0.2 cm; Reflux: 0 ms DUPLICATED MEDIAL GREAT SAPHENOUS VEIN: Diameter: None imaged Reflux: NA DUPLICATED LATERAL GREAT SAPHENOUS VEIN: Diameter: 0.3 cm Reflux: None SMALL SAPHENOUS VEIN: Proximal: 0.2 cm; Reflux: 0 ms Distal: 0.1 cm; Reflux: 0 ms VEIN OF GIACOMINI: Size: NA Reflux: NA PERFORATORS: Location: None significant Size: NA Reflux: NA VARICOSITIES: Location: None significant. There are multiple small varicose veins measuring less than 3 mm within the thigh and calf Size: NA Reflux: NA US/US venous duplex LE BI IMPRESSION: Right: No significant venous insufficiency or reflux right lower extremity Left: No significant venous insufficiency or reflux in the left lower extremity. Mcelroy's cyst
== END 2023-03-24 12:21 | disposition home or self-care (01) ==
LOC: HO.US 12:20
PROVIDERS: PCP General Practice; Visit Provider Surgery Vascular Surgery
DX: I83.11 Varicose veins of right lower extremity with inflammation (principal)
CPT/HCPCS: 93970

== ENCOUNTER 2023-04-02 10:41 | Outpatient (REF) | payer MEDICARE, MEDICAID, SELFPAY ==
[2023-04-02 11:35] LABS: Appearance Urine Clear; Color Urine Yellow; Glucose Urine UA Negative (Negative); Leukocyte Esterase Urine Small (1+) (Negative); Nitrite Urine Negative (Negative); Specific Gravity - Urine 1.025 (1.005-1.025); UMIC TRIGGER UACC YES; Urine Blood Negative (Negative); Urine Ketones Negative (Negative); Urine Protein Negative (Neg-Trace)
[2023-04-02 11:56] LABS: Bacteria Urine None Seen (None Seen); Hyaline Casts Urine 0-2 /LPF (0-2); UACC Culture Trigger YES; WBC Urine 0-5 /HPF (0-5)
== END 2023-04-02 10:42 | disposition home or self-care (01) ==
LOC: HO.HHCL 10:41
PROVIDERS: Visit Provider General Practice
DX: R30.0 Dysuria (principal)
CPT/HCPCS: 81001; 87086

== ENCOUNTER 2023-04-27 13:58 | Outpatient (AMB) | payer MEDICARE, MEDICAID, SELFPAY ==
--- NOTE | 2023-04-27 14:01 | A.OFFVIS_ITS ---
Intake Intake Visit Reasons: FU Intake Note: pt here for fallow on 03/24/23 with hx of VV pt states she is still having pain in both LE she also is experiencing swelling in both legs. Data Review Specialist Required: Yes Data Review Specialist Name: kenneth auguste Accompanied by: Daughter Allergies No Known Allergies Allergy (Verified 04/27/23 14:04) HPI FU HPI Details Very pleasant 68-year-old female presents for follow-up regarding venous disease. She notes some swelling and discomfort of the lower extremities. In particular she is concerned about numbness of the legs and feet. She does describe a history of some back pain as well. She now presents for follow-up with venous insufficiency testing. [facility] Medical History Hypercholesteremia No active medical problems Surgical History No pertinent past surgical history Family History Father No problems noted. Mother CAD (coronary artery disease) Social History Alcohol intake: never Patient Tobacco Use Status: Never used Tobacco Review of Systems Const Reports as per HPI ENT Reports no additional complaints Card Denies chest pain, Denies chest pain at rest and Denies chest pain with activity Resp Denies chest congestion and Denies cough GI Reports no additional complaints Musc Details: pain over varicosities, aching of lower extremities, swelling, cramping, heaviness and tiredness, itching Denies abnormal gait Skin/Breast Reports pruritus and Denies wounds Neuro Reports no additional complaints and Denies abnormal gait Psych Denies no additional complaints Physical Exam Const General: cooperative, healthy appearing and comfortable Orientation/consciousness: oriented to person, oriented to place and oriented to time Neck Carotids: no bruits Chest Chest palpation & inspection: normal inspection of the chest and normal palpation of entire chest wall Resp Effort & Inspection: normal respiratory effort and able to speak in complete sentences Cardio Rate: regular rate Heart sounds: S1 normal heart sound present and S2 normal heart sound present Peripheral pulses: Peripheral pulses 2+ throughout GI Inspection: Yes normal to inspection Skin Other: +2 edema, multiple spider telangiectasias General skin exam: dry skin Neuro General: oriented to person, oriented to place and oriented to time Extrem Right lower extremity: full ROM, normal capillary refill and edema Left lower extremity: full ROM, normal capillary refill and edema Psych Mental Status: mental status grossly normal Results Reviewed Results Reviewed: Brief summary of venous insufficiency testing is as follows: right great saphenous vein: negative right small saphenous vein: negative right accessory vein: none present left great saphenous vein: negative left small saphenous vein: negative left accessory vein: none present Please note there is no evidence of any venous aneurysms or significant tortuosity Assessment & Plan Assessment & Plan (1) Varicose veins of right lower extremity with inflammation: Code(s): I83.11 - Varicose veins of right lower extremity with inflammation Plan: In short patient is negative for any significant venous insufficiency. Should symptoms continue would recommend neurologic evaluation. We did discuss continued conservative measures including compression elevation and exercise. The patient will follow up with us on an as-needed basis. Thank you for allowing us to assist in her care. If there are questions or concerns please do not hesitate to contact us. Coding Level of Care Code Est Pt Level 4 (49623) Diagnoses Varicose veins of right lower extremity with inflammation I83.11
== END 2023-04-27 14:33 | disposition home or self-care (01) ==
PROVIDERS: PCP General Practice; Visit Provider Surgery Vascular Surgery
DX: I83.11 Varicose veins of right lower extremity with inflammation (principal)
CPT/HCPCS: 99213

== ENCOUNTER → 2023-04-27 13:58 | Outpatient (BNVA) | payer MEDICARE, MEDICAID, SELFPAY | PROVIDERS: PCP General Practice; Visit Provider Surgery Vascular Surgery | DX: I83.11 Varicose veins of right lower extremity with inflammation (principal) | CPT/HCPCS: 99212 ==

== ENCOUNTER 2023-09-03 13:09 | Outpatient (AMB) | payer MEDICARE, MEDICAID, SELFPAY ==
[2023-09-03 13:13] VITALS: BP 141/73; PULSE 80; BMI 31.0
--- NOTE | 2023-09-03 13:13 | A.OFFVIS_ITS ---
Vital Signs 09/03/23 13:13 Height 5 ft 1 in Weight 164 lb BMI 31.0 BP 141/73 H Blood Pressure Location Lt brachial Position Sitting Pulse 80 Intake Visit Reasons: Colonoscopy Screening Intake Note: Carolyn presents in the office as a new patient colonoscopy screening. CC: She states that she is here today because she is having inflammation in her stomach. [employer] Black Belt Required: Yes [employer] Black Belt Name: [id number] Allergies No Known Allergies Allergy (Verified 09/03/23 13:13) HPI HPI Colonoscopy Screening: Details: 68 year old? female with past medical history of depression, GERD, insomnia is here today for pre colonoscopy screening.? Patient was sent to us by her PCP.? This is his/her first colonoscopy screening.? Patient reports epigastric discomfort all the time. Patient reports feeling always bloated. Has been on omeprazole for a long time, however reports that and has not been working, reports that she has been taking it every day. Denies any personal or family history of colon polyps, or cancer.? Denies history of difficulty with sedation or anesthesia in the past.? Negative for history of sleep apnea.? Denies any history of cardiac, renal, pulmonary, or hepatic disease.?? No history of infectious? diseases like hepatitis A, B, C, HIV or tuberculosis.? Patient is not on any anticoagulation therapy. PFSH Medical History Hypercholesteremia No active medical problems Surgical History No pertinent past surgical history Family History Father Colon cancer Mother CAD (coronary artery disease) Social History Alcohol intake: never Patient Tobacco Use Status: Never used Tobacco Review of Systems Const Denies weight gain and Denies weight loss ENT Reports no additional complaints, Denies dysphagia and Denies odynophagia Card Reports no additional complaints Resp Reports no additional complaints GI Reports abdominal pain (Epigastric), Denies belching, Denies melena, Reports bloating, Denies change in bowel habits, Reports constipation, Denies dysphagia, Denies excessive flatus, Denies dyspepsia, Denies heartburn, Denies diarrhea, Denies loose stools, Denies nausea, Denies odynophagia and Denies vomiting Reports no additional complaints Musc Reports no additional complaints Neuro Reports no additional complaints Psych Reports no additional complaints Endo Reports no additional complaints Physical Exam Vital Signs: Last Vital Signs Pulse 80 09/03/23 13:13 BP 141/73 H 09/03/23 13:13 BMI result Body Mass Index 31.0 Const General: healthy appearing and no acute distress Nutritional Appearance: obese Orientation/consciousness: patient oriented x3 Resp Effort & Inspection: normal respiratory effort, able to speak in complete sentences, no tracheal deviation and symmetric chest movement Auscultation: clear to auscultation bilaterally Cardio Rate: regular rate GI Inspection: Yes normal to inspection, No distended and Yes obesity Palpation (GI): Soft to palpation, not firm, nontender and No hepatosplenomegaly present Auscultation: normal bowel sounds General: Yes no CVA tenderness Back/Spine/Pelvis Back: no CVA tenderness Skin General skin exam: elasticity normal, turgor normal and dry skin Neuro General: patient oriented x3 Psych Appearance: grossly normal Mental Status: mental status grossly normal Assessment & Plan Assessment & Plan (1) Screen for colon cancer: Code(s): Z12.11 - Encounter for screening for malignant neoplasm of colon (2) Epigastric pain: Code(s): R10.13 - Epigastric pain (3) GERD (gastroesophageal reflux disease): Code(s): K21.9 - Gastro-esophageal reflux disease without esophagitis Qualifiers: Esophagitis presence: esophagitis presence not specified Qualified Code(s): K21.9 - Gastro-esophageal reflux disease without esophagitis (4) Constipation: Code(s): K59.00 - Constipation, unspecified Qualifiers: Constipation type: slow transit constipation Qualified Code(s): K59.01 - Slow transit constipation (5) Abdominal bloating: Code(s): R14.0 - Abdominal distension (gaseous) Plan Patient denies any cardiac or respiratory symptoms. ?Denies any issues with anesthesia in the past.? Denies any history of sleep apnea.? No history infectious diseases in the past or present.? Not on any anticoagulation therapy.? No family or personal history of colon cancer or polyps.? Patient denies melena, hematochezia, unintentional weight loss or ribbon like stools.? Reports to be constipated will start patient on senna. Patient was also encouraged to increase fluid intake and activity to promote better bowel motili ty. Stop omeprazole and start pantoprazole 40 mg half an hour before breakfast. Patient will be scheduled for upper endoscopy as well to rule out gastritis, esophagitis, Wiggins's, H pylori, gastric or duodenal ulcers. Patient will return in 6 weeks for re-evaluation. 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 They were given the opportunity to ask questions and all questions Thank you for allowing me to participate in her care Medications: New sennosides (Natural Senna Laxative) 17.2 mg (2 x 8.6 mg) PO BEDTIME 60 tabs 3RF constipation K59.00 - Constipation, unspecified
== END 2023-09-03 14:08 | disposition home or self-care (01) ==
PROVIDERS: PCP General Practice; Visit Provider Nurse Practitioner Family
DX: K21.9 Gastro-esophageal reflux disease without esophagitis (principal); K59.01 Slow transit constipation; Z12.11 Encounter for screening for malignant neoplasm of colon
CPT/HCPCS: 99203

== ENCOUNTER → 2023-09-03 13:09 | Outpatient (BNVA) | payer MEDICARE, MEDICAID, SELFPAY | PROVIDERS: PCP General Practice; Visit Provider Nurse Practitioner Family | DX: Z12.11 Encounter for screening for malignant neoplasm of colon (principal); K21.9 Gastro-esophageal reflux disease without esophagitis; K59.01 Slow transit constipation; R10.13 Epigastric pain; R14.0 Abdominal distension (gaseous) | CPT/HCPCS: 99202 ==

== ENCOUNTER 2023-12-14 09:11 | Outpatient (REF) | payer MEDICARE, MEDICAID, SELFPAY ==
[2023-12-14 11:54] LABS: Alanine Aminotransferase 14 U/L (0-31); Albumin Level 4.1 g/dL (3.5-5.0); Alkaline Phosphatase 139 U/L (39-117); Anion Gap 11 (12-20); Aspartate Amino Transferase 20 U/L (5-31); Bilirubin Total 0.5 mg/dL (0.0-1.0); Blood Urea Nitrogen 15 mg/dL (9-16); Calcium 9.5 mg/dL (8.4-10.2); Carbon Dioxide 27 mmol/L (22-29); Chloride 107 mmol/L (96-108); Estimated Glomerular Filt Rate > 60; Glucose Random 104 mg/dL (60-115); Potassium 3.7 mmol/L (3.3-5.1); Sodium 141 mmol/L (135-145)
[2023-12-14 12:12] LABS: B Type Natriuretic Peptide 11 pg/mL (<100)
== END 2023-12-14 09:12 | disposition home or self-care (01) ==
LOC: HO.HHCL 09:11
PROVIDERS: Visit Provider General Practice
DX: R60.0 Localized edema (principal)
CPT/HCPCS: 36415; 80053; 83880

== ENCOUNTER 2024-02-10 14:00 | Outpatient (RCR) | payer MEDICARE, MEDICAID, SELFPAY | END 2024-02-21 12:09 | disposition home or self-care (01) | LOC: HO.PT 14:00 | PROVIDERS: PCP General Practice; Visit Provider General Practice | DX: M25.551 Pain in right hip (principal) | CPT/HCPCS: 97110; 97140; 97162 ==

== ENCOUNTER 2024-03-17 13:43 | Outpatient (REF) | payer MEDICARE, MEDICAID, SELFPAY ==
[2024-03-18 01:43] LABS: CT PCR NOT DETECTED (Not Detect.); NG PCR NOT DETECTED (Not Detect.)
[2024-03-18 16:04] LABS: Bacterial Vaginosis PCR NEGATIVE (Negative); Candida Group PCR NOT DETECTED (Not Detect); Candida glab krusei PCR NOT DETECTED (Not Detect); Trichomonas vaginalis PCR NOT DETECTED (Not Detect)
[2024-03-20 11:55] LABS: HPV 16,18/45 See PAP report
== END 2024-03-17 13:44 | disposition home or self-care (01) ==
LOC: HO.HHCLNP 13:43
PROVIDERS: Visit Provider General Practice
DX: Z12.4 Encounter for screening for malignant neoplasm of cervix (principal); N89.8 Other specified noninflammatory disorders of vagina
CPT/HCPCS: 0352U; 87491; 87591; 87624; 88175

== ENCOUNTER 2024-07-06 18:20 | Outpatient (REF) | payer MEDICARE, SELFPAY ==
--- OUTSIDE RECORDS SUMMARY | 2024-07-06 18:22 | XMS_ITS | Encounter Summary ---
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 Name Role Phone Naomi Kim MD Primary Care Provider [phone] Encounter Details Date Type Department Care Team (Latest Contact Info) Description 07/06/2024 Travel Social History Tobacco Use Types Packs/Day Years Used Date Smoking Tobacco: Never Smokeless Tobacco: Never Alcohol Use Standard Drinks/Week Comments Never 0 (1 standard drink = 0.6 oz pur e alcohol) Alcohol Answer Date Recorded Frequency of Alcohol Consumption Not on file 02/15/2023 Average Number of Drinks Not on file 023 Frequency of Binge Drinking Not on file 06/2022 Score 0 02/15/2023 Depression Answer Date Recorded Patient Health Questionnaire-9 Score 9 09/10/2023 Patient Health Questionnaire-9 Score 9 09/10/2023 Last PHQ-9: Questionnaire Data Not on file 0 09/10/2023 Housing Stability Answer Date Recorded What is your housing situation today? I have marily faustin 03/10/[address] you li ve. Do you have problems with any of the following? None of the above 03/10/2023 Food Insecurity Answer Date Recorded Within the past 12 months, y ou worried that your food would run out before you got money to buy more: Never True 03/10/2023 Within the past 12 months,th e food you bought just didn't last and you didn't have enough money to get more: Never True Transportation Answer Date Recorded In the past 12 months, has l ack of transportation kept you from medical appts, meetings, work or from getting things needed for daily living? No 03/10/2023 Utilities Answer Date Recorded In the past 12 months, has t he electric, gas, oil or water company threatened to shut off services in your home? No 03/10/2023 Depression Answer Date Recorded Patient Health Questionnaire-2 Score 2 09/10/2023 Internet Access Answer Date Recorded Internet Access Q1 Yes 01/14/2024 Internet Access Q2 Not on file 01/14/2024 Comments Unknown Sex and Gender Information Value Date Recorded Sex Assigned at Female 03/16/2022 10:37 AM EDT Legal Sex Female 10:37 AM EDT Gender Identity Female 03/16/2022 10:37 AM EDT Sexual Orientation Straight 03/16/2022 10 :37 AM EDT documented as of this encounter Plan of Treatment Not on file documented as of this encounter Visit Diagnoses Not on filedocumented in this encounter Additional Health Concerns Assessment Noted Time PHQ-9 Depression Total Score: 9 09/10/19 24 3:15 PM EDT documented as of this encounter Care Teams Valve Repairer Reclamation Relationship Specialty Start Date End Date Naomi Kim MD [address] [place] [id number] PCP - General Family Medicine 08/26/20 documented as of this encounter
--- OUTSIDE RECORDS SUMMARY | 2024-07-06 18:22 | XMS_ITS | Clinical Summary ---
Author Organization [employer] Address [address] [place] [address] 7[address] [place] [address] Care Team Providers Care Injection Molding Machine Tender Name Role Phone Naomi Kim MD Primary Care Provider [phone] Allergies No known active allergies Medications melatonin 5 MG tabletIndicatio ns:Primary insomnia TAKE 2 TABLETS BY MOUTH EVERY DAY AT BEDTIME FOR SLEEP 3 Active naproxen (Naprosyn) 250 MG tabletIndicatio ns:Muscle spasms of neck Take 1 tablet (250 mg) by mouth with breakfast and with evening meal. 60 tablet 5 3 Active triamcinolone (Kenalog) 0.1 % creamIndication s:Xerosis of skin,Chronic pruritus Mix with cerave and apply after showers 80 g 3 3 Active Senna-Time 8.6 MG tablet TAKE 2 TABLETS BY MOUTH EVERY DAY AT BEDTIME NEEDED FOR CONSTIPATION 4 Active Diclofenac Sodium 1 % gelIndications: Muscle spasms of neck APPLY 2 GRAMS TOPICALLY AFFECTED AREA(S) FOUR TIMES DAILY 100 g 11 4 Active Petrolatum 42 % ointment Apply 1 Application topically if needed in the morning and at bedtime (dry skin). 100 g 3 4 Active DULoxetine (Cymbalta) [address] capsule Take 1 capsule (20 mg) by mouth Once per day. Do not crush or chew. 90 capsule 3 4 12/08/19 25 Active fluticasone (Flonase) 50 MCG/ACT nasal sprayIndication s:Stuffy nose Administer 1-2 sprays into each nostril Once per day for 14 days. Shake gently. Before first use, prime pump. After use, clean tip and replace cap. 16 g 11 4 Active loratadine (Claritin) 10 MG tabletIndicatio ns:Chronic pruritus Take 1 tablet (10 mg) by mouth in the morning. 90 tablet 3 4 Active omeprazole (PriLOSEC) [address] capsuleIndicati ons:Gastroesoph ageal reflux disease without esophagitis Take 1 capsule (20 mg) by mouth before breakfast. Do not crush or chew. 90 capsule 3 4 Active magnesium 200 MG tabletIndicatio ns:Left leg pain Take 1 tablet (200 mg) by mouth Once per day. 90 tablet 3 4 Active Active Problems Problem Noted Date Diagnosed Date Stuffy nose 04/15/2024 Assessment & Plan (04/15/2024 12:09 PM EST): Will continue Flonase and antihistamine for long-term maintenance Pt says she cannot breathe through her nose most of the time Will refer to ENT for potenital [employer]SULTANT scope and to rule out mechanical nasal airway obstruction Left leg pain 04/15/2024 Assessment & Plan (04/15/2024 12:07 PM EST): Trial Magnesium Environmental allergies 04/15/2024 Gastroesophageal reflux disease without esophagi tis 04/15/2024 Screening for cervical cancer 03/17/2024 Depression, recurrent 09/14/2023 Assessment & Plan (09/14/2023 8:46 AM EDT): Start Cymbalta for depression and all over body pain, to target central sensitization, poor sleep, and depression Elevated alkaline phosphatase level 02/17/2023 Adult general medical exam 02/17/2023 Primary insomnia 02/17/2023 Nevus of cheek 02/17/2023 Chronic pruritus 02/15/2023 Mild cognitive disorder 11/21/2021 Muscle spasms of neck 11/21/2021 Pain of right hip joint 11/21/2021 Assessment & Plan (12/17/2023 11:35 AM EDT): Refer to PT Anxiety 09/23/2020 Assessment & Plan (09/14/2023 8:42 AM EDT): ALEK 7 score of 5 Chest pain 09/23/2020 Resolved Problems Problem Noted Date Diagnosed Date Resolved Date Left otitis media 12/29/2023 04/15/2024 Assessment & Plan (12/29/2023 3:28 PM EDT): -no indication of infection or need for abx use. -recommended sleeping with affected side away from the pillow. -ER and return precautions given. -Pt already on Claritin will trial Zyrtec. Sinusitis 05/01/2023 04/15/2024 Assessment & Plan (05/01/2023 9:14 PM EST): here today covid and flu neg Symptoms consistent w sinusitis -flonase, amoxicillin,tylenol -alarm signs and symptoms discussed Paronychia of finger of left hand 02/17/2023 04/15/2024 Moderate depressive episode 11/21/2021 04/15/2024 Encounters Date Type Department Care Team Description 07/06/2024 1:20 PM EST Office Visit [facility] [address] [place] [phone] Urinary tract infection symptoms (Primary Dx); Lumbar back pain 07/06/2024 Travel 04/25/2024 10:00 AM EST Office Visit [facility] [address] [place] [phone] Moody Gan MD Cough in adult patient (Primary Dx); Right ear pain; Stuffy and runny nose; Acute otitis media, unspecified otitis media type 04/18/2024 Telephone [facility] [address] [place] [phone] Naomi Kim MD 04/17/2024 5:20 PM EST Office Visit [facility] [address] [place] [phone] Vandana Beavers MD Sore throat (Primary Dx); Viral upper respiratory tract infection 04/10/2024 2:00 PM EST Office Visit [facility] [address] [place] [address] Naomi Kim MD Nasal congestion (Primary Dx); Chronic pruritus; Anxiety; Left leg pain; Environmental allergies; Gastroesophageal reflux disease without esophagitis; Stuffy nose 04/10/2024 Travel from Last 3 Months Immunizations Name Administration Dates Next Due Influenza High-dose Quadrivalent Preservative Fr ee 02/15/2023,01/29/2022 Influenza injectable quadrivalent preservative f ree 02/07/2021 Influenza, High Dose Seasonal, Preservative Free 02/21/2024 Pneumococcal Conjugate PCV 20 02/15/2023 RSV Bivalent 11/02/2023 Tdap 11/21/2021 Zoster, Recombinant 12/04/2020,10/02/2020 Social History Tobacco Use Types Packs/Day Years Used Date Smoking Tobacco: Never Smokeless Tobacco: Never Tobacco Cessation:Counseling Given: Not Answered Alcohol Use Standard Drinks/Week Comments Never 0 [...] Orientation Straight 03/16/2022 10 :37 AM EDT Last Filed Vital Signs Vital Sign Reading Time Taken Comments Blood Pressure 132/87 07/06/2024 1:22 PM EST Pulse 98 07/06/2024 1:22 PM EST Temperature 37.1 ??C (98.7 ??F) 07/06/2024 1:22 PM ES T Respiratory Rate 18 07/06/2024 1:22 PM EST Oxygen Saturation 97% 07/06/2024 1:22 PM EST Inhaled Oxygen Concentration - - Weight 72.2 kg (159 lb 3.2 oz) 07/06/2024 1:22 P M EST Height 154.9 cm (5' 1 ) 04/10/2024 2:02 PM EST Body Mass Index 30.08 04/10/2024 2:02 PM EST Plan of Treatment Health Maintenance Due Date Last Done Comments CT Colonography 1955 Colonoscopy 1955 Colorectal Cancer Screening 1955 FIT DNA/Cologuard 1955 FIT 1955 FOBT 1955 Sigmoidoscopy 1955 Alcohol/Substance Use Screening 1969 COVID-19 Vaccine ( season) 2024 04/05/2023, 04/01/2021, 08/28/2020 Mammogram 03/10/2024 03/10/2023, 10/17/2020 Depression Monitoring (PHQ-9) 03/11/2024 09/10/2023, 09/10/2023 Depression Screening 09/09/2024 09/10/2023, 09/10/19 24 SDOH Screening 11/29/2024 11/30/2023 Tobacco Screening 04/17/2025 04/17/2024 DTaP/Tdap/Td Vaccines (2 - Td or Tdap) 11/22/2031 11/21/2021 Hepatitis C Screening Completed 09/20/2020 HPV/Cotest Discontinued 10/02/2020 Zoster Vaccines Completed 12/04/2020, 10/02/2020 Pneumococcal Vaccine: 50+ Years Completed 02/15/2023 RSV Patients and Patients Aged 60 years or older Completed 11/02/2023 Influenza Vaccine Completed 02/21/2024, , 01/29/2022, Additional history exists Cervical Cancer Screening Discontinued Pap Smear Discontinued 03/17/2024, 10/02/2020 HIB Vaccines Aged Out No longer eligi ble based on patient's age to complete this topic HPV Vaccines Aged Out No longer eligi ble based on patient's age to complete this topic Hepatitis A Vaccines Aged Out No long er eligible based on patient's age to complete this topic Hepatitis B Vaccines Aged Out No long er eligible based on patient's age to complete this topic IPV Vaccines Aged Out No longer eligi ble based on patient's age to complete this topic Meningococcal Vaccine Aged Out No jhonatan yg eligible based on patient's age to complete this topic RSV under 20 months Aged Out No longe r eligible based on patient's age to complete this topic Rotavirus Vaccines Aged Out No longer eligible based on patient's age to complete this topic Procedures Procedure Name Priority Date/Time Associated Diagnosis Comments POCT URINALYSIS DIPSTICK Routine 07/06/2024 1:58 PM EST Urinary tract infection symptoms POCT INFLUENZA B (ID NOW RAPID MOLECULAR) Routine 04/25/2024 9:57 AM EST Cough in adult patient POCT INFLUENZA A (ID NOW RAPID MOLECULAR) Routine 04/25/2024 9:57 AM EST Cough in adult patient POCT RAPID COVID ANTIGEN Routine 04/25/2024 9:55 AM EST Cough in adult patient POC CHUNG ID NOW STREP A Routine 04/17/2024 5:10 PM EST Sore throat POCT INFLUENZA B (ID NOW RAPID MOLECULAR) Routine 04/17/2024 5:10 PM EST Sore throat POCT INFLUENZA A (ID NOW RAPID MOLECULAR) Routine 04/17/2024 5:10 PM EST Sore throat POCT RAPID COVID ANTIGEN Routine 04/17/2024 5:10 PM EST Sore throat PAP SMEAR Routine 03/17/2024 11:36 AM EDT BI MAMMOGRAM SCREENING TOMOSYNTHESIS BILATERAL Routine 03/10/2023 11:36 AM EDT HPV MRNA E6/E7 REFLEX TO HPV 16, 18/45 Routine 10/02/2020 10:16 AM EDT ZZZ HISTORICAL HEPATITIS C AB W/REFL TO HCV RNA, QN, PCR Routine 09/20/2020 3:34 PM EDT from Last 3 Months or Most Recently Relevant to Health Maintenance Results * (ABNORMAL) POCT urinalysis dipstick manually resulted (07/06/2024 1:58 PM EST) Color, UA Yellow Clarity, UA Clear Glucose, UA Negative Bilirubin, UA Few 15 Comment:small Ketones, UA Positive Comment:trace Spec Grav, UA 1.025 Blood, UA Negative Negative, None Detected pH, UA 5.5 Protein, UA Negative Urobilinogen, UA 1.0 Leukocytes, UA Few 15(A) Negative, Rare, Trace Comment:small Nitrite, UA Negative Negative, None Detected Urine 07/06/2024 1:58 PM EST us Lynne Diop NP POINT OF CARE TEST ENTER/EDIT O RDERABLES Final Result * Influenza B (ID NOW Rapid Molecular) (04/25/2024 9:57 AM EST) Only the most recent of2 resultswithin the time period is included. [facility] Influenza B Negative Negative, Indeterminate [facility] Swab 04/25/2024 9:57 AM EST us Moody Gan MD POINT OF CARE TEST ENTER/EDIT OR DERABLES Final Result Performing Organization Address [facility] de Phone Number [facility] [address] [place] [phone] * Influenza A (ID NOW Rapid Molecular) (04/25/2024 9:57 AM EST) Only the most recent of2 resultswithin the time period is included. [facility] Influenza A Negative Negative, Indeterminate [facility] Swab 04/25/2024 9:57 AM EST us Moody Gan MD POINT OF CARE TEST ENTER/EDIT OR DERABLES Final Result Performing Organization Address [facility] de Phone Number [facility] [address] [place] [phone] * POCT Rapid COVID Ag (04/25/2024 9:55 AM EST) Only the most recent of2 resultswithin the time period is included. [facility] Rapid COVID Ag Negative Swab 04/25/2024 9:55 AM EST Result [facility] us Moody Gna MD POINT OF CARE TEST ENTER/EDIT OR DERABLES Final Result * POCT Rapid Strep A CHUNG ID NOW (04/17/2024 5:10 PM EST) [facility] Rapid Strep A Screen Negative Negative, None Detected QC Media Lot # [id number] Lot# Expiration Date [id number] Swab 04/17/2024 5:10 PM EST us Vandana Beavers MD POINT OF CARE TEST ENTER/ED IT ORDERABLES Final Result * Pap Smear (03/17/2024 11:36 AM EDT) 03/17/2024 11:3 6 AM EDT 03/20/2024 8:30 AM EST Narrative [facility] - 03/22/2024 11:46 AM EST ----- ------- Name: Carolyn Kebede I ? Age/Sex: 69/F ? : 1955 Unit#: [id number] ?? Attend Dr: Naomi Kim ?Re03/17/24 ?Status: DEP REF ? Location: HO.HHCLNP ? Disch: ? ----- ------- SPEC : [id number] ?RECD: 03/20/24-829 ? STATUS: ??SOUT ? REQ NUM: [id number] ? MAURO: 03/17/24-1135 ? SUBM DR: Naomi Kim ? ENTERED: ??03/20/24-1027 ?SP TYPE: Pap Smr ?OTHR : ? ORDERED: ??Pap Smear ? Interpretation ?? Satisfactory for evaluation. ?? Negative for intraepithelial lesion or malignancy. ?? Atrophic. ?? Mild inflammation. ? HPV High Risk: ??Negative ? HPV Genotyping 16: ??Negative ?? HPV Genotyping 18: ??Negative ?Clinical Information LMP: Unknown date Previous PAP test: WN Other history: No postmenopausal bleeding ? Material Received ?? ThinPrep-Cervical ----- ------- Signed (signature on file) JOE Duron (ASCP) 03/22/24 1146 ? ----- ------- ? END OF REPORT ? us Naomi Kim MD LAB CYTOLOGY ORDERABLES Final Result Performing Organization Address [facility]/State/ZIP Co de Phone Number [facility] [address] [place] [address] [phone] * BI Mammogram Screening Tomosynthesis Bilateral (03/10/2023 11:36 AM EDT) Anatomical Region Laterality Modality Breast Bilateral Mammography 03/10/2023 11:3 6 AM EDT Narrative 03/29/2023 5:16 AM EST ? [facility] ? [address] ?[place] [address] ? Mammography Report ? Signed ? Patient: Carolyn Kebede I ?MR# ?? : [id number] ? : 1955 ?Acct:[id number] ? Age/Sex: 68 / F ?ADM Date: 03/10/ ? Loc: HO.MAMMO ? Attending Dr: Naomi Kim MD ? Ordering Physician: Naomi Kim ?Results: 1Negative ? Date of Service: 03/10/ ?Follow Up: 1 Year From Orig ?? inal Mammogram ? Procedure(s): MM tomosynthesis screening BI ?? Accession Number(s): [id number] ? cc: Naomi Kim ? EXAMINATION: ?? MM SCREENING DIGITAL BREAST TOMOSYNTHESIS, BILATERAL ? CLINICAL INFORMATION: ? Screening. Asymptomatic. ? COMPARISON: ?? Mammography: This study is compared with prior exams dating back to ?? 2020. ? TECHNIQUE: ?? Digital breast tomosynthesis is performed in both the craniocaudal and ?? mediolateral oblique views along with computer-aided detection (CAD). ?? Synthesized 2D images are generated from the tomosynthesis. ? FINDINGS: ?? There are scattered areas of fibroglandular density (ACR BI-RADS breast ?? composition Category b). ? There are no significant masses, abnormal calcifications, or other ?? abnormalities. ? MM/MM tomosynthesis screening BI ?? IMPRESSION: ?? No mammographic evidence of malignancy. ? ASSESSMENT: ? BI-RADS BI-RADS 1 - Negative ? RECOMMENDATION: ?? Routine annual mammography screening. ? 1 year F/U ? This examination should not preclude the clinical evaluation of a ?? suspicious palpable abnormality. ? This patient's information was entered into a reminder system with a ?? target due date for their next mammogram. ? Dictated By: ?Christie Catalan MD ? Signed By: ?<Electronically signed by Christie Catalan MD in OV> ? 03/29/23 05 ? DD/ 1136 ? TD/TT: ? Job Analyst: ? Procedure Note Kate Silveira - 03/29/2023 [facility] [address] [place] [address] Dr. [place], [place] [address] Mammography Report Signed Patient: Carolyn Kebede IMR# : [id number] : 7Acct:[id number] Age/Sex: 68 / FADM Date: 03/10/23 Loc: [facility] Attending Dr: Naomi Kim MD Ordering Physician: Gonzalo Kimults: 1Negative Date of Service: 03/10/23Follow Up: 1 Year From Orig inal Mammogram Procedure(s): MM tomosynthesis screening BI Accession Number(s): [id number] cc: Naomi Kim EXAMINATION: MM SCREENING DIGITAL BREAST TOMOSYNTHESIS, BILATERAL CLINICAL INFORMATION: Screening. Asymptomatic. COMPARISON: Mammography: This study is compared with prior exams dating back to 2020. TECHNIQUE: Digital breast tomosynthesis is performed in both the craniocaudal and mediolateral oblique views along with computer-aided detection (CAD). Synthesized 2D images are generated from the tomosynthesis. FINDINGS: There are scattered areas of fibroglandular density (ACR BI-RADS breast composition Category b). There are no significant masses, abnormal calcifications, or other abnormalities. MM/MM tomosynthesis screening BI IMPRESSION: No mammographic evidence of malignancy. ASSESSMENT: BI-RADS BI-RADS 1 - Negative RECOMMENDATION: Routine annual mammography screening. 1 year F/U This examination should not preclude the clinical evaluation of a suspicious palpable abnormality. This patient's information was entered into a reminder system with a target due date for their next mammogram. Dictated By: Christie Catalan MD Signed By: <Electronically signed by Christie Catalan MD in OV> 03/29/23 0513 DD/ 1136 TD/TT: Job Analyst: Naomi Kim MD [facility] BI PROCEDURES Final Result * HPV mRNA E6/E7 REFLEX TO HPV 16, 18/45 (10/02/2020 10:16 AM EDT) HPV nRNA E6/E7 Not Detected Not Detected [facility] Comment: Methodology: Travel Attendants-Mediated Amplification This assay detects E6/E7 viral messenger RNA (mRNA) from 14 high-risk HPV types (16,18,31,33,35,39,45,51,52,56,58,59,66,68). ? The analytical performance characteristics of this assay have been determined by [facility]. The modifications have not been cleared or approved by the FDA. This assay has been validated pursuant to the CLIA regulations and is used for clinical purposes. ?? For additional information, please refer to http://education.Just[employer].Myrl/faq/ALS876c3 (This link if provided for information/ educational purposes only.) 10/02/2020 10:1 6 AM EDT us Naomi Kim MD LAB CYTOLOGY ORDERABLES Final Result [facility] [address] * HEPATITIS C AB W/REFL TO HCV RNA, QN, PCR (09/20/2020 3:34 PM EDT) HEPATITIS C ANTIBODY NON-REACT BENITO NON-REACT BENITO [facility] INDEX 0.01 <1.00 [facility] Comment: ?? HCV antibody was non-reactive. There is no laboratory ?? evidence of HCV infection. ?? In most cases, no further action is required. However, if recent HCV exposure is suspected, a test for HCV RNA (test code 52349) is suggested. ?? For additional information please refer to http://[employer]IN.[employer]/faq/ZHT91s7 (This link is being provided for informational/ educational purposes only.) ?? 09/20/2020 3:34 PM EDT Naomi Kim MD HISTORICAL/NON ORDERABLE LABS Final Result Performing Organization Address City/[facility]/ZIP Co de Phone Number [facility] [address] from Last 3 Months or Most Recently Relevant to Health Maintenance Insurance [facility] [employer]PLETE Care Teams Injection Molding Machine Tender Relationship Specialty Start Date End Date Naomi Kim MD [address] [place] [phone] PCP - General Family Medicine 08/26/20
--- OUTSIDE RECORDS SUMMARY | 2024-07-06 18:22 | XMS_ITS | Encounter Summary ---
Author Organization [employer] Address [address] [facility] [address]t [place] [address] Care Team Providers Care Associate Professor Of Biology Name Role Phone Naomi Kim MD Primary Care Provider [phone] Encounter Details Date Type Department Care Team ([facility] st Contact Info) Description 12/02/2022 Orders Only [facility] [address] [place], [place] [phone] Kareen Ortiz LPN Social History Tobacco Use Types Packs/Day Years Used Date Smoking Tobacco: Never Smokeless Tobacco: Never Alcohol Use Standard Drinks/Week Comments Never 0 (1 standard drink = 0.6 oz pur e alcohol) Comments Unknown Sex and Gender Information Value Date Recorded Sex Assigned at Female 03/16/2022 10:37 AM EDT Legal Sex Female 10:37 AM EDT Gender Identity Female 03/16/2022 10:37 AM EDT Sexual Orientation Straight 03/16/2022 10 :37 AM EDT documented as of this encounter Plan of Treatment Not on file documented as of this encounter Visit Diagnoses Not on filedocumented in this encounter Care Teams Associate Professor Of Biology Relationship Specialty Start Date End Date Naomi Kim MD [address] [place] [address] PCP - General Family Medicine 08/26/20 documented as of this encounter
--- OUTSIDE RECORDS SUMMARY | 2024-07-06 18:22 | XMS_ITS | Encounter Summary ---
Author Organization [employer] Address [address] [facility] [address]t [place] [address] Care Team Providers Care Gas Pumping Station Helper Name Role Phone Naomi Kim MD Primary Care Provider [phone] Reason for Visit * Reason Onset Date Comments triage 10/01/2022 Encounter Details Date Type Department Care Team ([facility] st Contact Info) Description 10/01/2022 Telephone [facility] [address] [place], [place] [phone] Naomi Kim MD [address] [place], [place] [phone] triage Social History Tobacco Use Types Packs/Day Years [...] Orientation Straight 03/16/2022 10 :37 AM EDT COVID-19 Exposure Response Date Recorded In the last 10 days, have yo u been in contact with someone who was confirmed or suspected to have Coronavirus/COVID-19? No / Unsure 10/15/2022 1:42 PM EDT documented as of this encounter Miscellaneous Notes * Telephone Encounter - Richa Granda RN - 10/01/2022 3:02 PM EDT Triage call with [employer] Manager [place] [id number] Pt reports a ball behind right knee. Pt denies pain, Pt reports this swelling has been growing for 2 months and is now the size of a golf ball. Pt denies pain but, reports when walking it bothers Pt. Pt is able to walk with some difficulty and a limp on the right leg. Pt has varicose veins and hip pain as well. Pt reports the area has some redness and is warm to touch. Pt agrees with disposition apt with TIFFANIE Felipe 10/15 @ 200pm. Protocol Used: Knee Swelling (Adult) Protocol-Based Disposition: See in Office or Video Visit within 2 Weeks Positive Triage Question: * Knee swelling is a chronic symptom (recurrent or ongoing AND present > 4 weeks) * All higher-acuity triage questions were negative Care Advice Discussed: * Cold Pack for Knee Swelling * Elastic Bandage (FATIMAH Wrap) for Knee Swelling * Pain Medicines * Rest Your Knee for the Next Couple Days * Reasons To Call Back - Severe pain - Fever occurs - Looks infected (spreading redness, red streak) - You become worse * Telephone Encounter - Mina Craig - 10/01/2022 2:33 PM EDT Symptom: Leg Pain - Not From Injury Outcome: Schedule an urgent appointment (within 1 hour) or talk to a nurse or provider soon Reason: Severe pain now, states pt has a mass on leg. The caller accepted this outcome Please contact at [phone] documented in this encounter Plan of Treatment Not on file documented as of this encounter Visit Diagnoses Not on filedocumented in this encounter Care Teams Gas Pumping Station Helper Relationship Specialty Start Date End Date Naomi Kim MD [address] [place] [address] PCP - General Family Medicine 08/26/20 documented as of this encounter
--- OUTSIDE RECORDS SUMMARY | 2024-07-06 18:22 | XMS_ITS | Encounter Summary ---
Author Organization [employer] Address [address] [facility] 7t [place] [address] Care Team Providers Care Cartography Teacher Name Role Phone Naomi Kim MD Primary Care Provider [phone] Encounter Details Date Type Department Care Team (Late st Contact Info) Description 11/10/2022 Orders Only [facility] [address] [place], [place] [phone] Shanice Navas LPN Social History Tobacco Use Types Packs/Day [...] PM EDT documented as of this encounter Plan of Treatment Not on file documented as of this encounter Visit Diagnoses Not on filedocumented in this encounter Care Teams Cartography Teacher Relationship Specialty Start Date End Date Naomi Kim MD [address] [place] [address] PCP - General Family Medicine 08/26/20 documented as of this encounter
--- OUTSIDE RECORDS SUMMARY | 2024-07-06 18:22 | XMS_ITS | Encounter Summary ---
Author Organization [email or web address] Address [address] [place] [address] Care Team Providers Care Bathroom Tiling Professional Name Role Phone Naomi Kim MD Primary Care Provider [phone] Reason for Visit * Reason Comments uti symptoms Encounter Details Date Type Department Care Team ([facility] st Contact Info) Description 07/06/2024 1:20 PM EST Office Visit [facility] [address] [place] [address] Urinary tract infection symptoms (Primary Dx); Lumbar back pain Social History Tobacco Use Types Packs/Day Years [...] AM EDT documented as of this encounter Last Filed Vital Signs Vital Sign Reading [...] oz) 07/06/2024 1:22 P M EST Height - - Body Mass Index 30.08 04/10/2024 2:02 PM EST documented in this encounter Plan of Treatment Scheduled Orders Name Type Priority Associated Diagnoses Orde r Schedule Culture, Urine, Routine Microbiology Routine Urinary tract infection symptoms Ordered: 07/06/2024 documented as of this encounter Procedures Procedure Name Priority Date/Time Associated Diagnosis Comments POCT URINALYSIS DIPSTICK Routine 07/06/2024 1:58 PM EST Urinary tract infection symptoms documented in this encounter Results * (ABNORMAL) POCT urinalysis dipstick manually [...] None Detected Urine 07/06/2024 1:58 PM EST [facility] GREEN END MAN POINT OF CARE TEST ENTER/EDIT O RDERABLES Final Result documented in this encounter Visit Diagnoses Diagnosis Urinary tract infection symptoms- Primary Lumbar back pain Lumbago documented in this encounter Additional Health Concerns Assessment Noted Time PHQ-9 Depression Total Score: 9 09/10/19 24 3:15 PM EDT documented as of this encounter Care Teams Bathroom Tiling Professional Relationship Specialty Start Date End Date Naomi Kim MD [address] [place] [id number] PCP - General Family Medicine 08/26/20 documented as of this encounter
--- OUTSIDE RECORDS SUMMARY | 2024-07-06 18:22 | XMS_ITS | Encounter Summary ---
Author Organization [employer] Address [address] [place] [address] [address] [place] [address] Care Team Providers Care Washcloth Folder Name Role Phone Naomi Kim MD Primary Care Provider [phone] Encounter Details Date Type Department Care Team (Latest Contact Info) Description 03/17/2021 Abstract [facility] CONVERSIONS Dental, Provider, DDS Social History Tobacco Use Types Packs/Day Years Used Date Smoking Tobacco: Never Assessed Comments Unknown Sex and Gender Information Value [...] on filedocumented in this encounter Care Teams Washcloth Folder Relationship Specialty Start Date End Date Naomi Kim MD [address] [place] [id number] PCP - General Family Medicine 08/26/20 documented as of this encounter
== END 2024-07-06 18:21 | disposition home or self-care (01) ==
LOC: HO.HHCLNP 18:20
PROVIDERS: Visit Provider Nurse Practitioner
DX: R39.9 Unspecified symptoms and signs involving the genitourinary system (principal)
CPT/HCPCS: 87086

== ENCOUNTER 2024-11-20 13:56 | Outpatient (REF) | payer MEDICARE, SELFPAY ==
--- OUTSIDE RECORDS SUMMARY | 2024-11-20 14:24 | XMS_ITS | Encounter Summary ---
Author Organization [employer] [facility] [employer] Address [address] [facility] [address] [place] [address] Care Team Providers Care Websphere Message Broker Developer Name Role Phone Naomi Kim MD Primary Care Provider [phone] Encounter Details Date Type Department Care Team ([facility] st Contact Info) Description 11/06/2024 Telephone [facility] [address] [place], [place] [phone] Naomi Kim MD [address] [place], [place] [phone] Social History Tobacco Use Types Packs/Day Years Used Date Smoking Tobacco: Never Passive Smoke Exposure: Never Smokeless Tobacco: Never Alcohol Use Standard Drinks/Week Comments Never 0 (1 standard drink = 0.6 oz pur e alcohol) Alcohol Answer Date Recorded Frequency of Alcohol Consumption Not on file 02/15/2023 Average Number of Drinks Not on file 023 Frequency of Binge Drinking Not on file 06/2022 Score 0 02/15/2023 Depression Answer Date Recorded Patient Health Questionnaire-9 Score 0 10/27/2024 Patient Health Questionnaire-9 Score 0 10/27/2024 Last PHQ-9: Questionnaire Data Not on file 0 10/27/2024 Housing Stability Answer Date Recorded What is [...] Answer Date Recorded Patient Health Questionnaire-2 Score 0 10/27/2024 Internet Access Answer Date Recorded Internet Access [...] Assessment Noted Time PHQ-9 Depression Total Score: 0 10/28/19 25 1:18 PM EDT documented as of this encounter Care Teams Websphere Message Broker Developer Relationship Specialty Start Date End Date Naomi Kim MD [address] [place] [phone] PCP - General Family Medicine 08/26/20 documented as of this encounter
--- OUTSIDE RECORDS SUMMARY | 2024-11-20 14:24 | XMS_ITS ---
Author Name Gavino Washington APRN Address [address] [place] [address] Phone [phone] [facility] Care Team Providers Care Direct Care Supervisor Name Role Phone Zari Washington Unavailable [phone] Naomi Kim Unavailable [phone] [facility] Unavailable Reason for Referral Not Available Allergies, adverse reactions, alerts No known allergies History of medication use Medication Class Instructions Start Date End Date DULoxetine 20 mg Cap delayed rel TAKE 1 CAPSULE BY MOUTH EVERY DAY. DO NOT BREAK, CRUSH, DISSOLVE OR CHEW. 2024-10-27 No Data Available Fluticasone Propionate 50 MCG/ACT Suspension INSTILL 1-2 SPRAYS IN EACH NOSTRIL ONCE DAILY FOR FOURTEEN DAYS 2024-10-27 No Data Available Loratadine 10 mg Tab TAKE 1 TABLET BY MO UTH EVERY MORNING 2024-10-27 No Data Available MAGNESIUM 200 MG TABLET TAKE 1 TABLET BY MOUTH EVERY DAY 2024-10-27 No Data Available MELATONIN 5 MG TABLET TAKE 1 TABLET BY M OUTH AT BEDTIME FOR SLEEP 2024-10-27 No Data Available Olmesartan Medoxomil 5 mg Tab TAKE 1 TABLET BY MOUTH EVERY DAY 2024-10-27 No Data Available Omeprazole 20 mg Cap delayed rel TAKE 1 CAPSULE BY MOUTH EVERY DAY BEFORE BREAKFAST. DO NOT BREAK, CRUSH, DISSOLVE OR CHEW. 2024-10-27 No Data Available Senna 8.6 mg Tab TAKE 1 TABLET BY MARY TH EVERY DAY NEEDED FOR CONSTIPATION 2024-10-27 No Data Available Ventolin HFA 108 (90 Base) MCG/ACT Aerosol Solution INHALE 2 PUFFS BY MOUTH EVERY 6 HOURS NEEDED FOR WHEEZING OR SHORTNESS OF BREATH 2024-10-27 No Data Available Problem List Problem Status Onset Date Resolved Date Synopsis Other problems related to medical facilities and other health care Active 2024-10-24 N/A Pend Appt Recurrent moderate major depressive disorder with anxiety Active 2024-10-24 N/A SuspectedRX:Balwinder es SI/HIMonitor for worsening depression, coping mechanisms, and continue with PCP. Social History Sex Female Gender identity Woman Functional Status No Information Mental Status Status Date AOx 2024-10-24 Assessments Not Available Plan of Care Not Available
== END 2024-11-20 13:57 | disposition home or self-care (01) ==
LOC: HO.MAMMO 13:56
PROVIDERS: Visit Provider General Practice
DX: Z12.31 Encounter for screening mammogram for malignant neoplasm of breast (principal)
CPT/HCPCS: 77063; 77067

== ENCOUNTER → 2024-11-20 14:15 | Outpatient (BNV) | payer MEDICARE, SELFPAY | PROVIDERS: Visit Provider Internal Medicine | DX: Z12.31 Encounter for screening mammogram for malignant neoplasm of breast (principal) | CPT/HCPCS: 77063; 77067 ==

== ENCOUNTER 2024-11-27 12:18 | Outpatient (REF) | payer MEDICARE, SELFPAY ==
--- OUTSIDE RECORDS SUMMARY | 2024-11-27 13:16 | XMS_ITS | Encounter Summary ---
Author Organization [employer] Address [address] [place] [address] Care Team Providers Care Drupal Architect Name Role Phone Naomi Kim MD Primary Care Provider Encounter Details Date Type Department Care Team ([facility] st Contact Info) Description 11/06/2024 Telephone [facility] [address] [place], [place] [phone] Naomi Kim MD [address] [place], [place] [phone] Social History Tobacco Use Types Packs/Day Years [...] documented as of this encounter Care Teams Drupal Architect Relationship Specialty Start Date End Date Naomi Kim MD [address] [place] [id number] PCP - General Family Medicine 08/26/20 documented as of this encounter
--- OUTSIDE RECORDS SUMMARY | 2024-11-27 13:16 | XMS_ITS ---
Author Name MS. Yang Irby APRN Address [address] [place] [id number] Phone [phone] [facility] Care Team Providers Care Laborer High Density Press Name Role Phone Ludy Irby Unavailable [phone] Naomi Kim Unavailable [phone] [facility] Unavailable Reason for Referral Not Available Allergies, [...] and other health care Active 2024-10-24 N/A PSYCH C ONTINGENCY PLANLast updated: 11/23/2024Member to call for the following symptoms: Agitation/ Anxiety/ Not leaving bed/home or more withdrawn Planned intervention: Stop recently started medication: _/ Contact support person:/ Contact mental health professional:/ Remind member of personal goal:/ Limit extra stimulation Recurrent moderate major depressive disorder with anxiety Active 2024-10-24 N/A RX: duloxetineDe nies SI/HIMonitor for worsening depression, coping mechanisms, and continue with PCP. Hypertension Active 2024-11-23 N/A on olmesarta nmonitor BP maintain < 140/80low na diet Encounters Encounters Type Facility Date of Service Diagnosis/Co mplaint New patient 15-29min; 1 minor problem; add modifier 95 for video, modifier 93 for phone [facility] 11/23/2024 Major depressive disorder, recurrent, moderateOther problems related to medical facilities and other health careAnxiety disorder, unspecifiedEssential (primary) hypertension New patient 15-29min; 1 minor problem; add modifier 95 for video, modifier 93 for phone [facility] 11/23/2024 New patient 15-29min; 1 minor problem; add modifier 95 for video, modifier 93 for phone [facility] 11/23/2024 New patient 15-29min; 1 minor problem; add modifier 95 for video, modifier 93 for phone [facility] [place] 11/23/2024 New patient 15-29min; 1 minor problem; add modifier 95 for video, modifier 93 for phone [facility] [place] 11/23/2024 New patient 15-29min; 1 minor problem; add modifier 95 for video, modifier 93 for phone [facility] [place] 11/23/2024 New patient 15-29min; 1 minor problem; add modifier 95 for video, modifier 93 for phone [facility] 11/23/2024 New patient 15-29min; 1 minor problem; add modifier 95 for video, modifier 93 for phone [facility] 11/23/2024 New patient 15-29min; 1 minor problem; add modifier 95 for video, modifier 93 for phone [facility] 11/23/2024 Vital Signs Date of Collection Vitals 2024-11-23 08:20:33 Height - 157.48 cmWe ight - 65.77 kgBody Mass Index (BMI) - 26.52 kg/m2BP Diastolic - 70.0 mm[Hg]BP Systolic - 124.0 mm[Hg]Pain Scale - 6.0 {score} Social History Social History Social History Observation Description Effec tive Time Current Smoking Status Never smoker 2024-11-14 4 Sex Female Gender identity Woman History of Procedures Procedures Service Procedure code Service date Servicing provider Phone# New patient 15-29min; 1 minor problem; add modifier 95 for video, modifier 93 for phone [id number] 2024-11-23 No Data Available No Data Availa ble Medication List Documented (1159F) 1159F 2024-11-23 No Data Available No Data Zonia ilable Medication Review by prescribing provider or pharmacist documented (1160F) 1160F 2024-11-23 No Data Available No Data Zonia ilable Functional Status Assessed (1170F) 1170F 2024-11-23 No Data Available No Data Avail able Advance Care Directive Advance care planning discussion documented in the medical record (1158F) 1158F 2024-11-23 No Data Available No Data Availa ble Advance care planning discussed and documented advance care plan or surrogate decision-maker was documented in the medical record. (1123F) 1123F 2024-11-23 No Data Available No Data Availa ble Pain Assessment - Pain Documented on a Pain Scale (1125F) 1125F 2024-11-23 No Data Available No Data Zonia ilable SBP < 130 (3074F) 3074F 2024-11-23 No Data Available No Data Available DBP <80 (3078F) 3078F 2024-11-23 No Data Available No Data Available Functional Status Functional Category Effective Dates Cognition Status: Oriented to Person, Pl sada and Time 2024-11-23 ADL: Bathing Independent , D ressing Independent , Eating Independent , Ambulation Independent , Transferring Independent and Toileting Independent 2024-11-23 How many falls within the last 6 months? 0 2024-11-23 IADL: Medication Needs Dianna tance , Meal Prep Needs Assistance , Shopping Needs Assistance , Driving or Public Transport Needs Assistance , Housework Needs Assistance and Finances Needs Assistance 2024-11-23 Near falls within the last 6 months? 0 2 Do you feel unsteady on your feet? No 20 08-12-09 Do you worry about falling? No 2024-11-14 0 DME used with ambulation: [employer] [place] r 2024-11-23 Social Supports - # of Interactions with Friends/Family in a t 2024-11-23 Mental Status Status Date AOx3 2024-11-23 Assessments Date of Service Assessments 2024-11-23 08:20:33 Other problems relat ed to medical facilities and other health careRecurrent moderate major depressive disorder with anxietyHypertension Plan of Care Date of Service Plans 2024-11-23 08:20:33 Medication Review by prescribing provider or pharmacist documented (1160F)Medication List Documented (1159F)Functional Status Assessed (1170F)Advance Care Directive Advance care planning discussion documented in the medical record (1158F)SBP < 130 (3074F)DBP <80 (3078F)Advance care planning discussed and documented advance care plan or surrogate decision-maker was documented in the medical record. (1123F)New patient 15-29min; 1 minor problem; add modifier 95 for video, modifier 93 for phonePain Assessment - Pain Documented on a Pain Scale (1125F)Continue to see PCP. Follow-up with [facility] as needed for any acute or disease education needs that may arise.PSYCH CONTINGENCY PLANLast updated: 11/23/2024Member to call for the following symptoms: Agitation/ Anxiety/ Not leaving bed/home or more withdrawn Planned intervention: Stop recently started medication: _/ Contact support person:/ Contact mental health professional:/ Remind member of personal goal:/ Limit extra stimulationRX: duloxetineDenies SI/HIMonitor for worsening depression, coping mechanisms, and continue with PCP.on olmesartanmonitor BP maintain < 140/80low na diet Goals Date Goal 2024-11-23 Continue taking medi cations as directed and keep all follow up appointments with established PCP and Specialist. 2024-11-23 At least 50% of time spent counseling patient, discussing diagnosis, treatment plan, complicance, and coordinating follow up care. Health Concerns Date Concern 2024-11-23 Patient/Guardian agr eed to visit via telehealth. Introductory visit with Issa to establish care. Today, patient has chief complaint of: establishing care.Visit completed via: [x] audio and video; [ ] audio onlyInformed verbal consent was obtained from this patient to communicate and provide care using virtual and other telecommunications tools. This patient has been explained the risks, if any, related to the encounter. I explained that care provided through video or audio communication cannot replace the need for physical examination or an in-person visit for some disorders or urgent problems. 2024-11-23 Concerns for today's visit:No acute concerns or needs.Reviewed allergies, medications, active medical conditions, past medical and surgical history, social history. 2024-11-23 Most recent hospital stay or ER visit:No ER visits or hospitalizations documented in [facility] in last year. Member denies ER visits or hospitalizations in last year.Discussed our goal of helping the member have more days at home rather than in the ER or the hospital. 2024-11-23 Open HEDIS Measures: No open measures 2024-11-23 Advance Care Plannishi haider ConversationAdvance Care Planning ConversationDate of Conversation: 11/23/2024Life Limiting Diagnosis: Diagnosis: Currently on Hospice NoCode Status: YES CPR: Attempt ResuscitationGoals of Care: Yes to CPR and Curative Treatments: Attempt to sustain life by all medically effective meansNutrition goals: Feeding through new or existing surgically placed tube is ok Do you have a Durable Power of Coach [employer] for Healthcare, or Healthcare Proxy Or Guardianship? Yes, POAIf so, Who? daughter james Baugh you have a written Advance Directive? Has Advance DirectiveOther details of discussion: Today's plan: 1123F : AD or surrog 2024-11-23 Functional Assessmen tCognition Status: Oriented to Person, Place and TimeADL: Bathing Independent , Dressing Independent , Eating Independent , Ambulation Independent , Transferring Independent and Toileting IndependentIADL: Medication Needs Assistance , Meal Prep Needs Assistance , Shopping Needs Assistance , Driving or Public Transport Needs Assistance , Housework Needs Assistance and Finances Needs AssistanceHow many falls within the last 6 months? 0Near falls within the last 6 months? 0Do you feel unsteady on your feet? NoDo you worry about falling? NoDME used with ambulation: [employer]ator WalkerSocial Supports - # of Interactions with Friends/Family in a t
[2024-11-27 13:52] LABS: MANUAL DIFF FLAG NO
[2024-11-27 14:12] LABS: Hematocrit 35.5 % (37.0-47.0); Hemoglobin 11.7 g/dl (12.0-16.0); Imm Gran Abs Auto 0.02 X10*3/uL (0.00-0.03); Imm Gran Pct Auto 0.4 % (0.0-0.4); Lymphocytes Absolute Auto 2.0 X10*3/uL (1.2-4.9); Mean Corpuscular HGB Conc 33.0 g/dl (31.0-35.0); Mean Corpuscular Hemoglobin 29.0 pg (27.0-33.0); Mean Corpuscular Volume 87.9 fL (80.0-98.0); NRBC Abs Auto 0.000 X10*3/uL (0.0-0.012); NRBC Pct Auto 0.0 /100WBC (0.0-0.2); Platelet Count 263 X10*3/uL (160-400); Red Blood Count 4.04 X10*6/uL (4.20-5.50); White Blood Count 5.1 X10*3/uL (4.8-10.8)
[2024-11-27 14:25] LABS: Hemoglobin A1C 123.0670 umol/L; Total Hemoglobin (HGBA1C) 3083.2993 umol/L
[2024-11-27 15:00] LABS: Folate 7.7 ng/mL (> or = 4.0); Vitamin B12 > 2000 pg/mL (200-900)
== END 2024-11-27 12:19 | disposition home or self-care (01) ==
LOC: HO.HHCL 12:18
PROVIDERS: PCP General Practice; Visit Provider General Practice
DX: F09 Unspecified mental disorder due to known physiological condition (principal)
CPT/HCPCS: 36415; 82607; 82746; 83036; 84443; 85025; 86592

== ENCOUNTER → 2024-12-06 18:57 | Outpatient (BNV) | payer MEDICARE, SELFPAY | PROVIDERS: PCP General Practice; Visit Provider Radiology Diagnostic Radiology | DX: F03.90 Unspecified dementia, unspecified severity, without behavioral disturbance, psychotic disturbance, mood disturbance, and anxiety (principal) | CPT/HCPCS: 70551 ==

== ENCOUNTER 2024-12-06 19:29 | Outpatient (REF) | payer MEDICARE, SELFPAY ==
--- NOTE | ~2024-12-06 | MR_ITS ---
EXAMINATION: MR BRAIN WITHOUT CONTRAST CLINICAL INFORMATION: [facility]CI concern for dementia. COMPARISON: None available. TECHNIQUE: MRI of the brain was obtained using routine sequences without contrast. FINDINGS: No restricted diffusion. No acute intracranial hemorrhage, mass effect, midline shift, hydrocephalus or herniation. Baer-white matter differentiation is normal. Prominence of the extra-axial CSF spaces cerebral sulci. Posterior cranial fossa contents demonstrated no signal abnormality or gross masses. Craniocervical junction demonstrates normal position of the cerebellar tonsils. Sellar/suprasellar region demonstrates no signal abnormality or masses. Grade 1 anterolisthesis C3-4 and reverse curvature apex at C4-5. Marginal osteophyte formation and disc desiccation C3-4 and C4-5 levels. Reduced AP diameter of the central spinal canal and the upper cervical spine no fully included in the [id number]. No signal abnormality or volume loss in the hippocampi. MR/MR head/brain wo con IMPRESSION: No acute brain abnormality. Concerning [place] deformity, upper cervical spine. Electronically signed by: Renato Andrews MD 12/07/2024 07:11 AM EDT
== END 2024-12-06 19:30 | disposition home or self-care (01) ==
LOC: HO.MRI 19:29
PROVIDERS: PCP General Practice; Visit Provider General Practice
DX: F09 Unspecified mental disorder due to known physiological condition (principal)
CPT/HCPCS: 70551

== ENCOUNTER 2025-02-27 12:44 | Outpatient (AMB) | payer MEDICARE, MEDICAID, SELFPAY ==
--- OUTSIDE RECORDS SUMMARY | 2025-02-26 15:15 | XMS_ITS | Encounter Summary ---
Author Organization [employer] Address [address] [place] [address] Care Team Providers Care Administrative Specialist Name Role Phone Naomi Kim MD Primary Care Provider [phone] Encounter Details Date Type Department Care Team ([facility] st Contact Info) Description 02/26/2025 3:15 PM EDT Office Visit [facility] [address] [place] [address] TarkaEliana, OD [address] [place] [address] Dry eyes, bilateral (Primary Dx); Presbyopia; Retinal hemorrhage, right Social History Tobacco Use Types Packs/Day Years [...] housing situation today? I have marily faustin 12/26/[address] you li ve. Do you have problems with any of the following? None of the above 12/26/2024 Food Insecurity Answer Date Recorded Within the past 12 months, y ou worried that your food would run out before you got money to buy more: Never True 12/26/2024 Within the past 12 months,th e food you bought just didn't last and you didn't have enough money to get more: Never True 04/2025 Transportation Answer Date Recorded In the past 12 months, has l ack of transportation kept you from medical appts, meetings, work or from getting things needed for daily living? No 12/26/2024 Utilities Answer Date Recorded In the past 12 months, has t he electric, gas, oil or water company threatened to shut off services in your home? No 12/26/2024 Depression Answer Date Recorded Patient Health Questionnaire-2 Score 0 10/27/2024 Internet Access Answer Date Recorded Internet Access Q1 No 12/26/2024 Internet Access Q2 I do not want or need it 12/15 Comments Unknown Sex and Gender Information Value Date Recorded Sex Assigned at Female 03/16/2022 10:37 AM EDT Legal Sex Female 10:37 AM EDT Gender Identity Female 03/16/2022 10:37 AM EDT Sexual Orientation Straight 03/16/2022 10 :37 AM EDT documented as of this encounter Progress Notes * Eliana Jiménez, OD - 02/26/2025 3:15 PM EDT Eye Care Progress Note Patient ID: Carolyn Grace is a 70 y.o. female. HPI Patient reports dryness and tearing both eyes (OU). Patient does not use any drops. Patient also reports longstanding floaters both eyes (OU), patient reports flashes in both eyes (OU) x 4 months. Patient reports blurry vision both eyes (OU) through glasses. CARINE: 4 years ago Last edited by Eliana Jiménez, OD on 02/26/2025 3:20 PM. Current Medications[1] Medical History[2] Surgical History[3] Family History[4] Tobacco Use: Low Risk (02/26/2025) Tobacco Smoking Tobacco Use: Never Smokeless Tobacco Use: Never Passive Exposure: Never Allergies[5] ROS Positive for: Eyes Negative for: Constitutional, Gastrointestinal, Neurological, Skin, Genitourinary, Musculoskeletal,HENT, Endocrine, Cardiovascular, Respiratory, Psychiatric, Allergic/Imm, Heme/Lymph Last edited by Eliana Jiménez, OD on 02/27/2025 2:44 PM. Base Eye Exam Visual Acuity (Snellen - Linear) Right Left Dist cc 20/30 20/30+2 Tonometry ([facility] , 3:29 PM) Right Left Pressure 18 17 Pupils Pupils APD Right PERRL None Left PERRL None Visual [place] (Counting fingers) Left Right Full Full Extraocular Movement Right Left Full Full Neuro/Psych Oriented x3: Yes Mood/Affect: Normal Dilation Both eyes: 1.0% tropicamide @ 3:31 PM Slit Lamp and Fundus Exam External Exam Right Left External Normal Normal Slit Lamp Exam Right Left Lids/Lashes Makeup debris, 1+ collarettes Makeup debris, 1+ collarettes Conjunctiva/Sclera White and quiet White and quiet Cornea Clear Clear Anterior Chamber Deep and quiet, angles open Deep and quiet, angles open Iris Flat, round Flat, round Lens 1+ NS, 1+ ACC 1+ NS, 1+ ACC Fundus Exam Right Left Vitreous Clear Clear Disc [place] and healthy [place] and healthy C/D Ratio Vertical 0.15 0.15 C/D Ratio Horizontal 0.15 0.15 Macula Flat, even pigmentation Flat, even pigmentation Vessels AV 2/3, normal course and caliber AV 2/3, normal course and caliber Periphery Dot heme inferior arcade, no holes/tears/detachments 360 No holes/tears/detachments 360 Refraction Wearing Rx Sphere Cylinder [place] Add Right +2.25 -0.50 175 +2.75 Left +2.25 -0.50 006 +2.75 Type: BF Manifest Refraction (Subjective) Sphere Cylinder [place] Dist [place] Add Right +1.75 Sphere 20/20 +2.75 Left +1.75 -0.50 006 20/20 +2.75 Final Rx Sphere Cylinder [place] Add Right +1.75 Sphere +2.75 Left +1.75 -0.50 006 +2.75 Expiration Date: 02/26/2026 Assessment and Plan Diagnoses and all orders for this visit: Dry eyes, bilateral - Recommended the use of artificial tears in both eyes 1gtt 2-4x/day. Patient given dry eye handoutwith OTC drop options - Discussed importance of lid hygiene and recommended gentle soap and/or eyelid wipes daily - Monitor in 3 months Presbyopia - Dispensed updated spec Rx Retinal hemorrhage, right - Single dot heme OD - Patient has hypertension managed with medication. Discussed importance of medication compliance and regular follow up with PCP. Monitor in 3 months. RTC in 3 months for dilated f/u of retinal hemorrhage and dry eye f/u Eliana Jiménez, YIN 02/27/2025, 2:47 PM [1] Current Outpatient Medications Medication Sig Dispense Refill albuterol 108 (90 Base) MCG/ACT inhaler Inhale 2 puffs every 6 (six) hours if needed for wheezing. 18 g 11 benzocaine (Orajel) 10 % mucosal gel Use in the mouth or throat if needed in the morning, at noon, and at bedtime for mucositis. 5.3 g 0 DULoxetine (Cymbalta) [address] capsule Take 1 capsule (20 mg) by mouth Once per day. Do not crush or chew. 90 capsule 3 fluticasone (Flonase) 50 MCG/ACT nasal spray Administer 1-2 sprays into each nostril Once per day for 14 days. Shake gently. Before first use, prime pump. After use, clean tip and replace cap. 16 g 11 gabapentin (Neurontin) 100 MG capsule Take 1 capsule (100 mg) by mouth if needed at bedtime (neuropathy). 90 capsule 3 loratadine (Claritin) 10 MG tablet Take 1 tablet (10 mg) by mouth in the morning. 90 tablet 3 magnesium 200 MG tablet Take 1 tablet (200 mg) by mouth Once per day. 90 tablet 3 melatonin 5 MG tablet Take 1 tablet (5 mg) by mouth if needed at bedtime (insomnia). 90 tablet 3 olmesartan (Benicar) 5 MG tablet Take 1 tablet (5 mg) by mouth Once per day. 90 tablet 1 omeprazole (PriLOSEC) [address] capsule Take 1 capsule (20 mg) by mouth before breakfast. Do not crush or chew. 90 capsule 3 Senna-Time 8.6 MG tablet Take 1 tablet (8.6 mg) by mouth if needed each day for constipation. 90 tablet 1 No current facility-administered medications for this visit. [2] History reviewed. No pertinent past medical history. [3] History reviewed. No pertinent surgical history. [4] No family history on file. [5] No Known Allergies documented in this encounter Plan of Treatment Upcoming Encounters Date Type Department Care Team (Late st Contact Info) Description 06/29/2025 2:00 PM EST Office Visit [facility] [address] [place], [place] [phone] Eliana Jiménez, OD [address] [place] [address] documented as of this encounter Visit Diagnoses Diagnosis Dry eyes, bilateral- Primary Presbyopia Retinal hemorrhage, right Retinal hemorrhage documented in this encounter Additional Health Concerns Assessment Noted Time PHQ-9 Depression Total Score: 0 10/28/19 25 1:18 PM EDT documented as of this encounter Care Teams Administrative Specialist Relationship Specialty Start Date End Date Naomi Kim MD [address] [place] [address] PCP - General Family Medicine 08/26/20 documented as of this encounter
[2025-02-27 13:04] VITALS: BMI 27.3
--- NOTE | 2025-02-27 13:04 | HO.SPINEOV ---
Vital Signs 02/27/25 13:04 Height 5 ft Weight 140 lb BMI 27.3 Intake Visit Reasons: swan neck Intake Note: Ms. Grace is here today c/o neck pain that radiates to the arms. 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 This is a very nice 70-year-old Maori-speaking woman, seen in the office today for evaluation of posterior neck pain. I used science interpreter Radha Florentino to assist with today's visit. The patient reports that she has had neck pain going on for number of months. Also reports numbness of her hands. She had been worked up for dementia and part of the brain MRI showed that there could be concern for cervical stenosis C3-4 with a spondylolisthesis. She also reports feelings of numbness of her feet and balance problems as well. She has not done any conservative treatment for any neck issues up to this point. PMH: History of high blood pressure, hypertension, GERD. According to the patient there are no other medical conditions. She has never had surgery. Denies any issues with her heart, lungs, liver, kidneys, bleeding disorders, blood clots, infections. Social hx: She has not smoke, drink use any recreational drugs Medications: Cyclobenzaprine, Flonase, hydroxyzine, loratadine, melatonin, methocarbamol, naproxen, senna, sertraline and triamcinolone Allergies: None Physical exam: Awake alert oriented no acute distress, able to stand up and walk to the examining table on her own, slightly unsteady, she has mild bilateral hand weakness which I would rate as 4-5. Rest of her motor examination is normal. Slightly unsteady with walking and normal gait. She has diffuse hyperreflexia with Thurston's sign bilaterally. Imaging review: There is a brain MRI done at [facility] showing sagittal view concerning for possible spondylolisthesis at C3-4, but this is an incomplete evaluation. Impression: 70-year-old female presents for evaluation of neck pain radiating up the posterior part of her neck into her head, associated feelings of numbness of her hands and gait imbalance with hyperreflexia and hand weakness on her physical exam. Her MRI done of the brain does show evidence of what could be spondylolisthesis at C3-4 with possibly stenosis at this level but however it is limited study. I will order a cervical spine MRI as well as flexion-extension x-rays and see her back in the office to evaluate for possible cervical spinal cord compression. Thank you for allowing us to care for your patient. The total time spent with this visit with this patient was 45 minutes reviewing history, physical exam, cervical imaging review, and implementation of treatment plan or further diagnostic testing Ruslan Dillon MD,PhD [facility] Orders: Orders XR cervical spine 4V Today M50.90 - Cervical disc disorder, unspecified, unspecified cervical region MR cervical spine wo con Today M50.90 - Cervical disc disorder, unspecified, unspecified cervical region Coding Level of Care Code New Pt Level 4 (35310) Diagnoses Cervical disc disorder M50.90
--- OUTSIDE RECORDS SUMMARY | 2025-02-27 15:23 | XMS_ITS | Clinical Summary ---
Author Organization [employer] Address [address] [facility] [address] [place] [address] Care Team Providers Care Courtesy Booth Cashier Name Role Phone Naomi Kim MD Primary Care Provider [phone] Allergies No known active allergies Medications * This document contains information received from the source organization and may not represent a complete record from that organization. DULoxetine (Cymbalta) [address] capsule Take 1 capsule (20 mg) by mouth Once per day. Do not crush or chew. 90 capsule 3 5 10/28/19 26 Active fluticasone (Flonase) 50 MCG/ACT nasal sprayIndications :Stuffy nose Administer 1-2 sprays into each nostril Once per day for 14 days. Shake gently. Before first use, prime pump. After use, clean tip and replace cap. 16 g 11 5 Active loratadine (Claritin) 10 MG tabletIndication s:Chronic pruritus Take 1 tablet (10 mg) by mouth in the morning. 90 tablet 3 5 Active magnesium 200 MG tabletIndication s:Left leg pain Take 1 tablet (200 mg) by mouth Once per day. 90 tablet 3 5 Active melatonin 5 MG tabletIndication s:Primary insomnia Take 1 tablet (5 mg) by mouth if needed at bedtime (insomnia). 90 tablet 3 5 10/28/19 26 Active omeprazole (PriLOSEC) [address] capsuleIndicatio ns:Gastroesophag eal reflux disease without esophagitis Take 1 capsule (20 mg) by mouth before breakfast. Do not crush or chew. 90 capsule 3 5 Active Senna-Time 8.6 MG tablet Take 1 tablet (8.6 mg) by mouth if needed each day for constipation. 90 tablet 1 5 Active olmesartan (Benicar) 5 MG tablet Take 1 tablet (5 mg) by mouth Once per day. 90 tablet 1 5 10/28/19 26 Active albuterol 108 (90 Base) MCG/ACT inhaler Inhale 2 puffs every 6 (six) hours if needed for wheezing. 18 g 11 5 10/28/19 26 Active benzocaine (Orajel) 10 % mucosal gelIndications:O ral lesion Use in the mouth or throat if needed in the morning, at noon, and at bedtime for mucositis. 5.3 g 5 12/12/19 26 Active gabapentin (Neurontin) 100 MG capsule Take 1 capsule (100 mg) by mouth if needed at bedtime (neuropathy). 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 (CMS/HCC) 10/24/2024 Inhalation burn 10/01/2024 Stuffy nose 04/15/2024 Assessment & Plan (04/15/2024 12:09 PM EST): Will continue Flonase and antihistamine for long-term maintenance Pt says she cannot breathe through her nose most of the time Will refer to ENT for potenital [employer] scope and to rule out mechanical nasal [...] and depression Elevated alkaline phosphatase level 02/17/2023 Primary insomnia 02/17/2023 Nevus of cheek 02/17/2023 Chronic pruritus 02/15/2023 Mild cognitive disorder 11/21/2021 Assessment & Plan (11/21/2024 3:13 PM EDT): Labs ordered today Brain MRI ordered today Consider neurology referral based on results of preliminary testing Muscle spasms of neck 11/21/2021 Pain of right hip joint 11/21/2021 Assessment & Plan (12/17/2023 11:35 AM EDT): Refer to PT Anxiety 09/23/2020 Assessment & Plan (09/14/2023 8:42 AM EDT): ALEK 7 score of 5 Chest pain 09/23/2020 Resolved Problems Problem Noted Date Diagnosed Date Resolved Date Hospital discharge follow-up 10/30/2024 02/05/2025 Assessment & Plan (11/21/2024 3:11 PM EDT): Patient her to follow-up on recent inhalation marinelli. Doing reasonably well physically. Some concerns for safety in her home setting. Also with MMSE score of 24, indicative of MCI. Will order labs to rule out organic causes as well as brain MRI. Left otitis media 12/29/2023 04/15/2024 Assessment & [...] -flonase, amoxicillin,tylenol -alarm signs and symptoms discussed Adult general medical exam 02/17/2023 0 10/30/2024 Paronychia of finger of left hand 02/17/2023 04/15/2024 Moderate depressive episode 11/21/2021 04/15/2024 Encounters * This document contains information received from the source organization and may not represent a complete record from that organization. Date Type Department Care Team Description 02/26/2025 3:15 PM EDT Office Visit [facility] [address] [place] [address] Eliana Jiménez, OD Dry eyes, bilateral (Primary Dx); Presbyopia; Retinal hemorrhage, right 02/26/2025 Travel 02/20/2025 Travel 02/07/2025 Telephone [facility] [address] [place] [address] Naomi Kim MD Durable Medical Equipment ([facility] DME: Hand Held Shower Head.) 02/02/2025 11:30 AM EDT Office Visit [facility] [address] [place] [address] Naomi Kim MD Swan neck deformity of cervical spine (Primary Dx); Postmenopausal status; Muscle spasms of neck; Chronic right shoulder pain; Post-traumatic stress; Primary hypertension; Environmental allergies; Recurrent moderate major depressive disorder with anxiety (CMS/HCC) 02/02/2025 Travel 01/19/2025 Telephone [facility] [address] [place] [address] Naomi Kim MD 12/26/2024 11:15 AM EDT Office Visit [facility] [address] [place] [address] Naomi Kim MD Swan neck deformity of cervical spine (Primary Dx); Recurrent moderate major depressive disorder with anxiety (CMS/HCC) 12/26/2024 Travel 12/21/2024 Results Follow-Up [facility] [address] [place] [address] Naomi Kim MD TSH W/Reflex to FT4, RPR (Monitor) with Reflex to Titer, CBC auto differential, Additional followed-up results: 3 12/11/2024 3:15 PM EDT Office Visit [facility] [address] [facility] [place] [address] Lynne Diop NP Oral lesion (Primary Dx); Elevated blood pressure reading 12/11/2024 Travel from Last 3 Months Immunizations Immunization Administration Dates Next Due Influenza High-dose Quadrivalent Preservative Fr ee 02/15/2023,01/29/2022 Influenza injectable quadrivalent preservative f ree 02/07/2021 Influenza, High Dose Seasonal, Preservative Free 02/21/2024 Pneumococcal Conjugate PCV 20 02/15/2023 RSV Bivalent 11/02/2023 Tdap 11/21/2021 Zoster, Recombinant 12/04/2020,10/02/2020 Social History Tobacco Use Types Packs/Day Years Used Date Smoking Tobacco: Never Passive Smoke Exposure: Never Smokeless Tobacco: Never Tobacco Cessation:Counseling Given: [...] your housing situation today? I have marily roxie 12/26/[address] you li [...] Sign Reading Time Taken Comments Blood Pressure 132/72 02/02/2025 11:58 AM EDT Pulse 80 02/02/2025 11:58 AM EDT Temperature 36.3 C (97.4 F) 02/02/2025 11:58 AM EDT Respiratory Rate 20 02/02/2025 11:58 AM EDT Oxygen Saturation 98% 12/11/2024 3:17 PM EDT Inhaled Oxygen Concentration - - Weight 68.7 kg (151 lb 6 oz) 02/02/2025 11:58 AM EDT Height 153.7 cm (5' 0.5 ) 02/02/2025 11:58 AM ED T Body Mass Index 29.08 02/02/2025 11:58 AM EDT Plan of Treatment Upcoming Encounters Date Type Department Care Team (Late st Contact Info) Description 06/29/2025 2:00 PM EST Office Visit [facility] [address] [place] [address] Eliana Jiménez, OD [address] [place] [address] Health Maintenance Due Date Last Done Comments CT Colonography 1955 Colonoscopy 1955 Colorectal Cancer Screening 1955 FIT DNA/Cologuard 1955 FIT 1955 FOBT 1955 Sigmoidoscopy 1955 COVID-19 Vaccine ( season) 2025 04/05/2023, 04/01/2021, 08/28/2020 Influenza Vaccine (#1) 2025 , 02/15/2023, 01/29/2022, Additional history exists Depression Screening 10/27/2025 10/27/2024, 10/28/19 25 Mammogram 11/20/2025 11/20/2024, 02/15, 10/17/2020 Diabetes: Hemoglobin A1C 11/27/2025 025, 02/15/2023, 09/20/2020 Alcohol/Substance Use Screening 12/26/2025 12/26/2024 SDOH Screening 12/26/2025 12/26/2024 Tobacco Screening 02/26/2026 02/26/2025 Lipid Panel 02/16/2028 02/15/2023, 09/20/2020 DTaP/Tdap/Td Vaccines (2 - Td or Tdap) 11/22/2031 11/21/2021 Hepatitis C Screening Completed 09/20/2020 HPV/Cotest Discontinued 10/02/2020 Zoster Vaccines Completed 12/04/2020, 10/02/2020 Pneumococcal Vaccine: 50+ Years Completed 02/15/2023 RSV Patients and Patients Aged 60 years or older Completed 11/02/2023 Cervical Cancer Screening Discontinued Pap Smear Discontinued [...] patient's age to complete this topic Meningococcal B Vaccine Aged Out No l onger eligible based on patient's age to complete [...] Procedure Name Priority Date/Time Associated Diagnosis Comments MR BRAIN WO CONTRAST Routine 12/06/2024 7:29 PM EDT Mild cognitive disorder VITAMIN B12/FOLATE, SERUM PANEL Routine 11/27/2024 12:22 PM EDT Mild cognitive disorder HEMOGLOBIN A1C Routine 11/27/2024 12:22 PM EDT Mild cognitive disorder CBC WITH AUTO DIFFERENTIAL Routine 11/27/2024 12:22 PM EDT Mild cognitive disorder RPR (MONITOR) W/REFL TITER Routine 11/27/2024 12:22 PM EDT Mild cognitive disorder TSH W/REFLEX TO FT4 Routine 11/27/2024 1 2:22 PM EDT Mild cognitive disorder BI MAMMOGRAM SCREENING TOMOSYNTHESIS BILATERAL Routine 11/20/2024 2:00 PM EDT Encounter for screening mammogram for malignant neoplasm of breast PAP SMEAR Routine 03/17/2024 11:36 AM EDT LIPID PANEL, STANDARD Routine 02/15/2023 11:51 AM EDT Adult general medical exam HPV MRNA E6/E7 REFLEX TO HPV 16, 18/45 Routine 10/02/2020 10:16 AM EDT ZZZ HISTORICAL HEPATITIS C AB W/REFL TO HCV RNA, QN, PCR Routine 09/20/2020 3:34 PM EDT from Last 3 Months or Most Recently Relevant to Health Maintenance Results * MR Brain w/o Contrast (12/06/2024 7:29 PM EDT) Anatomical Region Laterality Modality Brain Magnetic Resonan ce 12/06/2024 7:29 PM EDT Narrative 12/07/2024 7:14 AM EDT [address] [address] Magnetic Resonance Report Signed Patient: Carolyn Kebede I MR# : [id number] : 1955 Acct:[id number] Age/Sex: 69 / F ADM Date: 12/06/24 Loc: HO.MRI Attending Dr: Naomi Kim MD Ordering Physician: Naomi Kim Date of Service: 12/06/24 Procedure(s): MR head/brain wo con Accession Number(s): [id number] cc: Naomi Kim EXAMINATION: MR BRAIN WITHOUT CONTRAST CLINICAL INFORMATION: MCI concern for dementia. COMPARISON: None available. TECHNIQUE: MRI of the brain was obtained using routine sequences without contrast. FINDINGS: No restricted diffusion. No acute intracranial hemorrhage, mass effect, midline shift, hydrocephalus or herniation. Baer-white matter differentiation is normal. Prominence of the extra-axial CSF spaces cerebral sulci. Posterior cranial fossa contents demonstrated no signal abnormality or gross masses. Craniocervical junction demonstrates normal position of the cerebellar tonsils. Sellar/suprasellar region demonstrates no signal abnormality or masses. Grade 1 anterolisthesis C3-4 and reverse curvature apex at C4-5. Marginal osteophyte formation and disc desiccation C3-4 and C4-5 levels. Reduced AP diameter of the central spinal canal and the upper cervical spine no fully included in the [id number]. No signal abnormality or volume loss in the hippocampi. MR/MR head/brain wo con IMPRESSION: No acute brain abnormality. Concerning [place] deformity, upper cervical spine. Electronically signed by: Renato Andrews MD 12/07/2024 07:11 AM EDT Dictated By: Renato Go MD Signed By: <Electronically signed by Renato Soni MD in OV> 12/07/24710 DD/ 28 TD/TT: 12/06/241952 Pharmacist'S Aide: Procedure Note Donotuseinterpreter, Image - 12/07/[address] [address] Magnetic Resonance Report Signed Patient: Carolyn Kebede IMR# : [id number] : 1955cct:[id number] Age/Sex: 69 / FADM Date: 12/06/24 Loc: HO.MRI Attending Dr: Naomi Kim MD Ordering Physician: Naomi Kim Date of Service: 12/06/24 Procedure(s): MR head/brain wo con Accession Number(s): [id number] cc: Naomi Kim EXAMINATION: MR BRAIN WITHOUT CONTRAST CLINICAL INFORMATION: MCI concern for dementia. COMPARISON: None available. TECHNIQUE: MRI of the brain was obtained using routine sequences without contrast. FINDINGS: No restricted diffusion. No acute intracranial hemorrhage, mass effect, midline shift, hydrocephalus or herniation. Baer-white matter differentiation is normal. Prominence of the extra-axial CSF spaces cerebral sulci. Posterior cranial fossa contents demonstrated no signal abnormality or gross masses. Craniocervical junction demonstrates normal position of the cerebellar tonsils. Sellar/suprasellar region demonstrates no signal abnormality or masses. Grade 1 anterolisthesis C3-4 and reverse curvature apex at C4-5. Marginal osteophyte formation and disc desiccation C3-4 and C4-5 levels. Reduced AP diameter of the central spinal canal and the upper cervical spine no fully included in the [id number]. No signal abnormality or volume loss in the hippocampi. MR/MR head/brain wo con IMPRESSION: No acute brain abnormality. Concerning [place] deformity, upper cervical spine. Electronically signed by: Renato Andrews MD 12/07/2024 07:11 AM EDT Dictated By: Renato Go MD Signed By: <Electronically signed by Renato Soni MDin OV> 12/07/24 0711 DD/ 28 TD/TT: 12/06/241952 Pharmacist'S Aide: Naomi Kim MD IM MRI PROCEDURES Final Resul t * (ABNORMAL) Vitamin B12/Folate, Serum Panel (11/27/2024 12:22 PM EDT) Vitamin B12 >2,000(H ) 200 - 900 pg/mL [facility] Comment:NORMAL 200-900 PG/ML INDETERMINATE 160-199 PG/ML DEFICIENT < 160 PG/ML Folate 7.7 > or = 4.0 ng/mL [facility] Comment:Reference Values:> o r = 4.0 ng/mL< 4.0 ng/mL suggests folate deficiency Methotrexate, aminopterin and folinic acid(leucovorin) are chemotherapeutic agents whose molecularstructures are similar to folate; therefore, the Architectfolate assay cannot be used for patients using these drugs. Blood Venous blood specimen / Unknown 11/27/2024 12:22 PM EDT 11/27/2024 1:43 PM EDT Naomi Kim MD LAB BLOOD ORDERABLES Final Res ult Performing Organization Address [facility] Co de Phone Number [facility] [address] [place] [phone] * TSH W/Reflex to FT4 (11/27/2024 12:22 PM EDT) TSH reflex Free T4 1.11 0.32 - 4.0 uIU/mL [facility] Blood Venous blood specimen / Unknown 11/27/2024 12:22 PM EDT 11/27/2024 1:43 PM EDT Naomi Kim MD LAB BLOOD ORDERABLES Final Res ult Performing Organization Address [facility]/ZIP Co de Phone Number [facility] [address] [place] [phone] * (ABNORMAL) CBC auto differential (11/27/2024 12:22 PM EDT) White Blood Count 5.1 4.8 - 10.8 X10*3/uL [facility] Red Blood Count 4.04(L) 4.20 - 5.50 X10*6/uL [facility] Hemoglobin 11.7(L) 12.0 - 16.0 g/dl [facility] Hematocrit 35.5(L) 37.0 - 47.0 % [facility] Mean Corpuscular Volume 87.9 80.0 - 98.0 fL [facility] Mean Corpuscular Hemoglobin 29.0 27.0 - 33.0 pg [facility] Mean Corpuscular HGB Conc 33.0 31.0 - 35.0 g/dl [facility] Red Cell Distribution Width 12.8 11.0 - 16.0 % [facility] Platelet Count 263 160 - 400 X10*3/uL [facility] Mean Platelet Volume 11.0 9.4 - 12.3 fL [facility] Neutrophils Percent Auto 40.5(L) 45 - 73 % [facility] Imm Gran Pct Auto 0.4 0.0 - 0.4 % [facility] Lymphocytes Percent Auto 39.6 20 - 40 % [facility] Monocytes Percent Auto 11.8(H) 2 - 11 % [facility] Eosinophils Percent Auto 6.9(H) 0 - 4 % [facility] Basophils Percent Auto 0.8 0 - 2 % [facility] NRBC Pct Auto 0.0 0.0 - 0.2 /100WBC [facility] Neutrophils Absolute Auto 2.1 2.0 - 8.3 x10*3/uL [facility] Imm Gran Abs Auto 0.02 0.00 - 0.03 X10*3/uL [facility] Lymphocytes Absolute Auto 2.0 1.2 - 4.9 X10*3/uL [facility] Monocytes Absolute Auto 0.6 0.1 - 1.2 X10*3/uL [facility] Eosinophils Absolute Auto 0.4 0.0 - 0.4 X10*3/uL [facility] Basophils Absolute Auto 0.0 0.0 - 0.2 X10*3/uL [facility] NRBC Abs Auto 0.000 0.0 - 0.012 X10*3/uL [facility] Blood Venous blood specimen / Unknown 11/27/2024 12:22 PM EDT 11/27/2024 1:43 PM EDT Naomi Kim MD LAB BLOOD ORDERABLES Final Res ult Performing Organization Address City/[facility]/ZIP Co de Phone Number [facility] [address] [place] [phone] * RPR (Monitor) with Reflex to??Titer (11/27/2024 12:22 PM EDT) RPR (Monitor) w/Refl Titer NON-REACTI VE NON-REACT BENITO [facility] Comment:THIS TEST WAS PERFOR MED AT:[employer] [place] [phone] DYKES MD Rapid Plasma Reagin Ab Titer TNP [facility] Blood Venous blood specimen / Unknown 11/27/2024 12:22 PM EDT 11/27/2024 1:43 PM EDT Naomi Kim MD LAB BLOOD ORDERABLES Final Res ult Performing Organization Address [facility]/ZIP Co de Phone Number [facility] [address] [place] [phone] * Hemoglobin A1c (11/27/2024 12:22 PM EDT) Hemoglobin A1c 5.8 <6.0 % [facility] Comment:Hemoglobin A1C Refer ence Range Adults: 4.8 - 6.0 % Non diabetic: < 6.0 % Goal: < 7.0 %Additional Action Suggested: > 8.0 %Note: Hemoglobin A1c results are invalid for patients with abnormal amounts of HbF. Blood transfusions may impact the HbA1c concentration in the patient sample. Estimated Average Glucose 120 mg/dL [facility] Comment:eAG = Estimated ave rage glucose which is %A1C expressed asaverage glucose, using the formula of the Q7N-KgqhivtZespawe Glucose study (ADAG), Diabetes Care, Vol.31,#8,2007 Blood Venous blood specimen / Unknown 11/27/2024 12:22 PM EDT 11/27/2024 1:43 PM EDT us Naomi Kim MD LAB BLOOD ORDERABLES Final Res ult [facility] [address] [facility] [place] [address] [phone] * BI Mammogram Screening Tomosynthesis Bilateral (11/20/2024 2:00 PM EDT) Anatomical Region Laterality Modality Breast Bilateral Mammography 11/20/2024 2:00 PM EDT Narrative 12/01/2024 9:51 PM EDT [address] [place] [address] Mammography Report Signed Patient: Carolyn Kebede I MR# : [id number] : 1955 Acct:[id number] Age/Sex: 69 / F ADM Date: 11/20/24 Loc: HO.MAMMO Attending Dr: Naomi Kim MD Ordering Physician: Naomi Kim Results: 1Negative Date of Service: 11/20/24 Follow Up: 1 Year From Orig ina Mammogram Procedure(s): MM tomosynthesis screening BI Accession Number(s): [id number] cc: Naomi Kim EXAMINATION: MM SCREENING DIGITAL BREAST TOMOSYNTHESIS, BILATERAL CLINICAL INFORMATION: Screening. Asymptomatic. COMPARISON: Mammography: Comparison is made with available priors TECHNIQUE: Digital breast mammography with tomosynthesis is performed in both the craniocaudal and mediolateral oblique views along with computer-aided detection (CAD). FINDINGS: There are scattered areas of fibroglandular [...] target due date for their next mammogram. Electronically signed by: Erlinda Barclay DO 12/01/2024 09:48 PM EDT RP Dictated By: Erlinda Barclay DO Signed By: <Electronically signed by Erlinda Barclay DO in OV> 12/01/248 DD/ 1400 TD/TT: 11/20/24 1413 Pharmacist'S Aide: Procedure Note Donotuseinterpreter, Image - [facility]01/[facility] [address] [place] [address] Mammography Report Signed Patient: Carolyn Kebede IMR# : [id number] : 1955cct:[id number] Age/Sex: 69 / FADM Date: 11/20/24 Loc: HOAnkitMAMMO Attending Dr: Naomi Kim MD Ordering Physician: Gonzalo Kimults: 1Negative Date of Service: 11/20/24Follow Up: 1 Year From Orig inal Mammogram Procedure(s): MM tomosynthesis screening BI Accession Number(s): [id number] cc: Naomi Kim EXAMINATION: MM SCREENING DIGITAL BREAST TOMOSYNTHESIS, BILATERAL CLINICAL INFORMATION: Screening. Asymptomatic. COMPARISON: Mammography: Comparison is made with available priors TECHNIQUE: Digital breast mammography with tomosynthesis is performed in both the craniocaudal and mediolateral oblique views along with computer-aided detection (CAD). FINDINGS: There are scattered areas of fibroglandular [...] target due date for their next mammogram. Electronically signed by: Erlinda Barclay DO 12/01/2024 09:48 PM EDT RP Dictated By: Erlinda aBrclay DO Signed By: <Electronically signed by Erlinda Barclay DO in OV> 12/01/248 DD/ 1400 TD/TT: 11/20/24 1413 Pharmacist'S Aide: Naomi Kim MD [facility] BI PROCEDURES Edited Resul t - Final * Pap Smear (03/17/2024 11:36 AM EDT) 03/17/2024 11:3 6 AM EDT 03/20/2024 8:30 AM EST [facility] - 03/22/2024 11:46 AM EST ----- ------- Name: Carolyn Kebede I Age/Sex: 69/F : 1955 Unit#: [id number] Attend Dr: Naomi Kim Re03/17/24 Status: [facility] REF Location: [facility] Disch: ----- ------- SPEC : [id number] RECD: 03/20/24 STATUS: KATELYNN RERosetta NUM: [id number] MAURO: 03/17/24-1135 [facility] DR: Naomi Kim ENTERED: 03/20/24-1027 SP TYPE: Pap Smr OT DR: ORDERED: Pap Smear Interpretation Satisfactory for evaluation. Negative for intraepithelial lesion or malignancy. Atrophic. Mild inflammation. HPV High Risk: Negative HPV Genotyping 16: Negative HPV Genotyping 18: Negative Clinical Information LMP: Unknown date Previous PAP test: 2021, WNL Other history: No postmenopausal bleeding Material Received ThinPrep-Cervical ----- ------- Signed (signature on file) JOE Duron (ASCP) 03/22/24 1146 ----- ------- END OF REPORT us Naomi Kim MD LAB CYTOLOGY ORDERABLES Final Result [facility] [address] [place] [phone] * (ABNORMAL) Lipid Panel, Standard (02/15/2023 11:51 AM EDT) Triglycerides 108 <150 mg/dL [facility] Comment:Desirable Triglyceri de: less than 150 mg/dLBorderline High Triglyceride 150-199 mg/dLHigh Triglyceride: 200-499 mg/dLVery High Triglyceride: greater than or equal to 5OO mg/dL Cholesterol 201(H) <200 mg/dL [facility] Comment:Desirable Cholestero l: less than 200 mg/dLBorderline High Cholesterol: 200-239 mg/dLHigh Cholesterol: greater than 239 mg/dL LDL Cholesterol Calculated 132(H) <100 mg/dL [facility] Comment:Desirable LDL: less than 100 mg/dLNear Optimal/Above Optimal LDL: 110- 129 mg/dLBorderline High LDL: 130-159 mg/dLHigh LDL: 160-189 mg/dLVery High LDL: greater than or equal to 190 mg/dL HDL Cholesterol 48 >40 mg/dL [facility] Comment:Desirable HDL: great er than 40 mg/dL Note: This HDL assay may give artificially low results in patients with liver disease. Blood Venous blood specimen / Unknown 02/15/2023 11:51 AM EDT 02/15/2023 1:18 PM EDT Naomi Kim MD LAB BLOOD ORDERABLES Final Res ult [facility] [address] [place] [phone] * HPV mRNA E6/E7 REFLEX TO HPV 16, 18/45 (10/02/2020 10:16 AM EDT) Pathologist [facility] HPV nRNA E6/E7 Not Detected Not Detected [facility] Comment: Methodology: Wire Mesh Filter Fabricator-Mediated Amplification This assay detects E6/E7 viral messenger RNA (mRNA) from 14 high-risk HPV types (16,18,31,33,35,39,45,51,52,56,58,59,66,68). The analytical performance characteristics of this assay have been determined by [employer]. The modifications have not been cleared or approved by the FDA. This assay has been validated pursuant to the CLIA regulations and is used for clinical purposes. For additional information, please refer to http://education.[employer]faq/ZAZ020s7 (This link if provided for information/ educational purposes only.) 10/02/2020 10:1 6 AM EDT Naomi Kim MD LAB CYTOLOGY ORDERABLES Final Result Performing Organization Address [facility]/ZIP Co de Phone Number [facility] [address] * HEPATITIS C AB W/REFL TO HCV RNA, QN, PCR (09/20/2020 3:34 PM EDT) Pathologist [place] [facility] C ANTIBODY NON-REACT [facility] INDEX 0.01 <1.00 [facility] Comment: HCV antibody was non-reactive. There is no laboratory evidence of HCV infection. In most cases, no further action is required. However, if recent HCV exposure is suspected, a test for HCV RNA (test code 64816) is suggested. For additional information please refer to [email or web address]levate HR/faq/TFI98d6 (This link is being provided for informational/ educational purposes only.) 09/20/2020 3:34 PM EDT us Naomi Kim MD HISTORICAL/NON ORDERABLE LABS Final Result Performing Organization Address City/State/[facility] Co de Phone Number [facility] [address] from Last 3 Months or Most Recently Relevant to Health Maintenance Insurance [facility] DUAL COMPLETE Care Teams Courtesy Booth Cashier Relationship Specialty Start Date End Date Naomi Kim MD [address] [place] [address] PCP - General Family Medicine 08/26/20
--- OUTSIDE RECORDS SUMMARY | 2025-02-27 15:23 | XMS_ITS | Encounter Summary ---
Author Organization [employer] Address [address] 7t [place] [address] Care Team Providers Care Mid Level Clinician Name Role Phone Naomi Kim MD Primary Care Provider [phone] Encounter Details Date Type Department Care Team (Latest Contact Info) Description 02/26/2025 Travel Social History Tobacco Use Types Packs/Day [...] as of this encounter Plan of Treatment Upcoming Encounters Date Type Department Care Team (Late st Contact Info) Description 06/29/2025 2:00 PM EST Office Visit [facility] OPTOMETRY [address] [place] [address] Eliana Jiménez, OD [address] [place] [address] documented as of this encounter Visit Diagnoses Not on filedocumented in this encounter Additional Health Concerns Assessment Noted Time PHQ-9 Depression Total Score: 0 10/28/19 25 1:18 PM EDT documented as of this encounter Care Teams Mid Level Clinician Relationship Specialty Start Date End Date Naomi Kim MD [address] [place] [address] PCP - General Family Medicine 08/26/20 documented as of this encounter
--- OUTSIDE RECORDS SUMMARY | 2025-02-27 15:23 | XMS_ITS ---
Author Name Naty MALLOY MRS. Lopez Address [address] [place] [address] Phone [phone] [facility] [employer] [facility] Care Team Providers Care Mobile Nurse Name Role Phone Jessica Alfonso Unavailable [phone] Naomi Kim Unavailable [phone] [facility] Unavailable Reason for Referral Not [...] tive Time Current Smoking Status Never smoker 2025-02-14 4 Sex Female Gender identity Woman History of Procedures Procedures Service Procedure code Service date Servicing provider Phone# New patient 15-29min; 1 minor problem; add modifier 95 for video, modifier 93 for phone [id number] 2024-11-23 No Data Available No Data Availa [...] Do you have a Durable Power of Drop Board Man for Healthcare, or Healthcare Proxy Or Guardianship? [...]
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
--- OUTSIDE RECORDS SUMMARY | 2025-02-27 15:23 | XMS_ITS | Encounter Summary ---
Author Organization [facility] [facility] Address [address] [facility] 7t [place] [address] Care Team Providers Care Township Clerk Name Role Phone Naomi Kim MD Primary Care Provider [phone] Encounter Details Date Type Department Care Team (Latest Contact Info) Description 03/17/2021 Abstract [facility] CONVERSIONS Dental, Provider, DDS Social History Tobacco [...] Description 06/29/2025 2:00 PM EST Office Visit [facility] OPTOMETRY [address] [place] [address] Eliana Jiménez, OD [address] [place] [address] documented as of this encounter Visit Diagnoses Not on filedocumented in this encounter Care Teams Township Clerk Relationship Specialty Start Date End Date Naomi Kim MD [address] [place] [address] PCP - General Family Medicine 08/26/20 documented as of this encounter
--- OUTSIDE RECORDS SUMMARY | 2025-02-27 15:23 | XMS_ITS | Encounter Summary ---
Author Organization [employer] [facility] Address [address] [place] [address] 7t [place] [address] Care Team Providers Care Lead Printer Name Role Phone Naomi Kim MD Primary Care Provider [phone] Encounter Details Date Type Department Care Team (Late Contact Info) Description 12/02/2022 Orders Only [facility] MEDICINE [address] [place] [address] Kareen Ortiz LPN Social History Tobacco Use [...] Description 06/29/2025 2:00 PM EST Office Visit [facility] OPTOMETRY [address] [place] [address] Eliana Jiménez, OD [address] [place] [address] documented as of this encounter Visit Diagnoses Not on filedocumented in this encounter Care Teams Lead Printer Relationship Specialty Start Date End Date Naomi Kim MD [address] [place] [address] PCP - General Family Medicine 08/26/20 documented as of this encounter
--- OUTSIDE RECORDS SUMMARY | 2025-02-27 15:23 | XMS_ITS | Encounter Summary ---
Author Organization [facility] [facility] Address [address] [facility] 7t [place] [address] Care Team Providers Care Rubber Goods Assembler Name Role Phone Naomi Kim MD Primary Care Provider [phone] Encounter Details Date Type Department Care Team (Late Contact Info) Description 11/10/2022 Orders Only [facility] MED [facility] PEDS [address] [place], [place] [phone] Shanice Navas LPN Social History Tobacco Use [...] Encounters Date Type Department Care Team (Late Contact Info) Description 06/29/2025 2:00 PM EST Office Visit [facility] OPTOMETRY [address] [place], [place] [phone] Eliana Jiménez, OD [address] [place] [address] documented as of this encounter Visit Diagnoses Not on filedocumented in this encounter Care Teams Rubber Goods Assembler Relationship Specialty Start Date End Date Naomi Kim MD [address] [place] [address] PCP - General Family Medicine 08/26/20 documented as of this encounter
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
--- OUTSIDE RECORDS SUMMARY | 2025-02-27 15:23 | XMS_ITS | Encounter Summary ---
Author Organization [employer] Address [address] 7[address] [place] [address] Care Team Providers Care Lieutenant Colonel Name Role Phone Naomi Kim MD Primary Care Provider Encounter Details Date Type Department Care Team ([facility] st Contact Info) Description 11/06/2024 Telephone [facility] MEDICINE [address] [place], [place] [phone] Naomi Kim MD [address] [place], [place] [phone] Social History Tobacco Use Types Packs/Day Years [...] PM EST Office Visit [facility] [address] [place] [address] Eliana Jiménez, OD [address] [place] [address] documented as of this encounter Visit Diagnoses Not on filedocumented in this encounter Additional Health Concerns Assessment Noted Time PHQ-9 Depression Total Score: 0 10/28/19 25 1:18 PM EDT documented as of this encounter Care Teams Lieutenant Colonel Relationship Specialty Start Date End Date Naomi Kim MD [address] [place] [address] PCP - General Family Medicine 08/26/20 documented as of this encounter
== END 2025-02-27 13:23 | disposition home or self-care (01) ==
PROVIDERS: PCP General Practice; Referring Provider General Practice; Visit Provider Physician Assistant
DX: M50.90 Cervical disc disorder, unspecified, unspecified cervical region (principal)
CPT/HCPCS: 99204

== ENCOUNTER 2025-02-27 12:44 | Outpatient (REF) | payer MEDICARE, SELFPAY ==
--- NOTE | ~2025-02-27 | XR_ITS ---
EXAMINATION: XR CERVICAL SPINE 4-5 VIEWS HISTORY: M50.90 - Cervical disc disorder, unspecified, unspecified cervical region COMPARISON: There are no prior studies available for comparison. FINDINGS: AP, and neutral, flexion, and extension lateral views of the cervical spine are submitted. Osseous mineralization is normal. There is reversal of the normal cervical lordosis. Seven cervical vertebral bodies are identified maintaining normal height without evidence of fracture. There is slight anterolisthesis of C3 on C4 measuring 3 mm in the neutral position, 4 mm with flexion, and 2 mm with extension. There is moderate degenerative disc disease with disc space narrowing and osteophyte formation. There is osteoarthritis of the facet joints. There is no prevertebral soft tissue swelling. XR/XR cervical spine 4V IMPRESSION: Reversal of the normal cervical lordosis. Slight anterolisthesis of C3 on C4 as described. Moderate degenerative disc disease. Electronically signed by: Richard Beach MD 02/28/2025 07:29 AM EDT
== END 2025-02-27 12:45 | disposition home or self-care (01) ==
LOC: HO.HOSX 12:44
PROVIDERS: PCP General Practice; Referring Provider General Practice; Visit Provider Physician Assistant
DX: M50.90 Cervical disc disorder, unspecified, unspecified cervical region (principal); R20.0 Anesthesia of skin; R26.89 Other abnormalities of gait and mobility
CPT/HCPCS: 72050; 99202

== ENCOUNTER → 2025-02-27 13:26 | Outpatient (BNV) | payer MEDICARE, SELFPAY | PROVIDERS: PCP General Practice; Referring Provider General Practice; Visit Provider Radiology Diagnostic Radiology | DX: M50.30 Other cervical disc degeneration, unspecified cervical region (principal) | CPT/HCPCS: 72050 ==

== ENCOUNTER 2025-04-20 17:40 | Outpatient (REF) | payer OTHER, SELFPAY ==
--- NOTE | ~2025-04-20 | MR_ITS ---
EXAMINATION: MR CERVICAL SPINE WITHOUT CONTRAST CLINICAL INFORMATION: Cervical disc disorder, unspecified. 70-year-old female, Neck pain ongoing, radiating to right arm. Patient also is complaining of toe numbness bilaterally. COMPARISON: No prior MRI. Cervical radiographs 02/27/2025. TECHNIQUE: MRI of the cervical spine was obtained using routine sequences without contrast. Examination performed on a 1.5 Tamie Siemens high-field unit, using standard sequences. FINDINGS: CORONAL ALIGNMENT: -There is a mild right convex scoliosis, apex at C4. SAGITTAL ALIGNMENT: -There is a reversal of the normal lordosis, centered at C4. -There is a 2 mm degenerative anterolisthesis of C3 on C4. -There are stairstep type degenerative 2 mm retrolistheses of C5 on C6 and C6 on C7. CRANIOCERVICAL JUNCTION/C1-2 ARTICULATIONS: -Intact and aligned. 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 VERTEBRAL BODIES/BONE MARROW: -Mild flattening of the C4, C5, and C6 vertebral bodies is present. -There are prominent Schmorl's nodes in the endplates of C5 and C6. -There are edematous type endplate changes at C5-6, and to a lesser degree at C4-5. -There is no abnormal infiltrating bone marrow signal. DISCS: -Severe loss of disc height and signal is present at C5-6. There is moderate loss at C3-4, and C4-5. There is mild loss of C2-3. CERVICAL CORD: -Normal in signal throughout. There is mild cord impingement present at C3-4, C4-5, and C5-6 as detailed below. There is near cord impingement at C6-7. -There is no mass or expansion of the cord. PARAVERTEBRAL SOFT TISSUES: -No paravertebral or paraspinous edema or abnormal fluid collection. -2 thyroid gland is obscured by a saturation band. -Normal flow voids in the vertebral arteries. VISUALIZED INTRACRANIAL STRUCTURES: -Imaged contents of the posterior fossa appear normal. AXIAL DISC SPACE IMAGING: C2-C3: Minimal disc bulging is present. Severe left facet hypertrophy is present. There is mild central canal stenosis, and severe left neural foraminal stenosis. The right neural foramen is patent. C3-C4: There is disc uncovering secondary to anterolisthesis, with a diffuse disc bulge present. There is severe left and mild right facet hypertrophic arthropathy. There is bilateral uncinate spurring. There is mild cord impingement with mild flattening and loss of CSF space both ventrally and dorsally. There is no cord signal abnormality. There is severe left greater than right neural foraminal impingement C4-C5: There is a diffuse disc bulge present, which coupled with bilateral moderate facet hypertrophy, uncinate spurring, and posterior ligamentous thickening is resulting in mild cord impingement, with loss of ventral and dorsal CSF space. There is no cord signal abnormality. There is severe bilateral neural foraminal impingement. C5-C6: There is shallow disc bulging asymmetric to the right, contiguous with bilateral prominent uncinate spurring. There is posterior ligamentous infolding/thickening. There is mild to moderate bilateral hypertrophic facet changes right greater than left. Combination of findings is resulting in near cord impingement, with effacement of both ventral and dorsal CSF space. There is severe right neural foraminal encroachment, and moderate left. C6-C7: There is a left paracentral and lateral protrusion of disc material, which extends into the left neural foramen. Moderate bilateral uncinate spurring is present. Mild bilateral facet spurring is present. The combination of findings is resulting in mild to moderate central canal stenosis, and moderate bilateral neural foraminal stenosis. C7-T1: There is no disc pathology. Mild facet hypertrophy and degeneration bilaterally. There is no significant central canal narrowing. There is mild bilateral neural foraminal narrowing. T1-T5: There is no significant central canal encroachment. MR/MR cervical spine wo con IMPRESSION: 1. Multilevel moderate to severe cervical spondylosis as detailed above, most notable spanning C3-C6, with resultant mild cord impingement/flattening present at C3-4, C4-5, and C5-6, but no definite cord signal abnormality. 2. Reversal of the normal lordosis with a mild associated right convex scoliosis centered at C4. 3. There are edematous type endplate changes present at C4-5 and to a greater degree at C5-6. 4. See the body the report for details. Electronically signed by: Ian Boyer MD 04/23/2025 09:00 AM [facility]
--- OUTSIDE RECORDS SUMMARY | 2025-04-20 20:02 | XMS_ITS | Encounter Summary ---
Author Organization [employer] Address [address]t [place] [address] Care Team Providers Care Cloth Spreader Screen Printing Name Role Phone Naomi Kim MD Primary Care Provider [phone] Encounter Details Date Type Department Care Team ([facility] st Contact Info) Description 11/06/2024 Telephone [facility] MEDICINE [address] [place], [place] [phone] Naomi Kim MD [address] [place], [place] [phone] Social History Tobacco Use Types Packs/Day Years [...] Care Team (Late st Contact Info) Description 06/13/2025 9:45 AM EST Office Visit [facility] MEDICINE [address] [place] [address] Naomi Kim MD [address] [place] [address] 07/23/2025 2:30 PM EDT Office Visit [facility] OPTOMETRY [address] [place], [place] [phone] Eliana Jiménez, OD [address] [place] [address] documented as of this encounter Visit Diagnoses Not on filedocumented in this encounter Additional Health Concerns Assessment Noted Time PHQ-9 Depression Total Score: 0 10/28/19 25 1:18 PM EDT documented as of this encounter Care Teams Cloth Spreader Screen Printing Relationship Specialty Start Date End Date Naomi Kim MD [address] [place], [place] [phone] PCP - General Family Medicine 08/26/20 documented as of this encounter
--- OUTSIDE RECORDS SUMMARY | 2025-04-20 20:02 | XMS_ITS | Encounter Summary ---
Author Organization [email or web address] [facility] Address [address] [place] [address] 7t [place] [address] Care Team Providers Care Data Specialist Name Role Phone Naomi Kim MD Primary Care Provider [phone] Encounter Details Date Type Department Care Team (Late st Contact Info) Description 12/02/2022 Orders Only [facility] MEDICINE [address] [place] [address] Kareen Ortiz LPN Social History Tobacco Use [...] Description 06/13/2025 9:45 AM EST Office Visit [facility] MEDICINE [address] [place] [address] Naomi Kim MD [address] [place] [address] 07/23/2025 2:30 PM EDT Office Visit [facility] OPTOMETRY [address] [place] [address] Eliana Jiménez, OD [address] [place] [address] documented as of this encounter Visit Diagnoses Not on filedocumented in this encounter Care Teams Data Specialist Relationship Specialty Start Date End Date Naomi Kim MD [address] [place] [address] PCP - General Family Medicine 08/26/20 documented as of this encounter
--- OUTSIDE RECORDS SUMMARY | 2025-04-20 20:02 | XMS_ITS | Encounter Summary ---
Author Organization [facility] Address [address] [facility] 7t [place] [address] Care Team Providers Care E Tailer Name Role Phone Naomi Kim MD Primary Care Provider [phone] Encounter Details Date Type Department Care Team (Latest Contact Info) Description 03/17/2021 Abstract [facility] CONVERSIONS Dental, Provider, DDS Social History Tobacco [...] Description 06/13/2025 9:45 AM EST Office Visit [facility] MEDICINE [address] [place] [address] Naomi Kim MD [address] [place] [address] 07/23/2025 2:30 PM EDT Office Visit [facility] OPTOMETRY [address] [place] [address] Eliana Jiménez OD [address] [place] [address] documented as of this encounter Visit Diagnoses Not on filedocumented in this encounter Care Teams E Tailer Relationship Specialty Start Date End Date Naomi Kim MD [address] [place] [address] PCP - General Family Medicine 08/26/20 documented as of this encounter
--- OUTSIDE RECORDS SUMMARY | 2025-04-20 20:02 | XMS_ITS | Clinical Summary ---
Author Organization [employer] Address [address] [facility] 7t [place] [address] Care Team Providers Care Elevator Service Technician Name Role Phone Naomi Kim MD Primary Care Provider Allergies No known active allergies Medications * [...] 02/05/2025 Postmenopausal status 02/05/2025 Post-traumatic stress 02/05/2025 [place] neck deformity of cervical spine 12/30/2024 Overview [...] time Will refer to ENT for potenital BREAD PACKER scope and to rule out mechanical nasal [...] organization. Date Type Department Care Team Description 04/16/2025 Travel 03/01/2025 Telephone [facility] MEDICINE [address] [place] [address] Naomi Kim MD Durable Medical Equipment 02/27/2025 Orders Only [facility] External Provider, [facility] 02/26/2025 3:15 PM EDT Office Visit [facility] OPTOMETRY [address] [place] [address] Tarka, Eliana, OD Dry eyes, bilateral (Primary Dx); Presbyopia; Retinal hemorrhage, right 02/26/2025 Travel 02/20/2025 Travel 02/07/2025 Telephone [facility] MEDICINE [address] [place] [address] Naomi Kim MD Durable Medical Equipment ([facility] DME: Hand Held Shower Head.) 02/02/2025 11:30 AM EDT Office Visit [facility] MEDICINE [address] [place] [address] Naomi Kim MD [place] neck deformity of cervical spine (Primary Dx); Postmenopausal status; Muscle spasms of neck; Chronic right shoulder pain; Post-traumatic stress; Primary hypertension; Environmental allergies; Recurrent moderate major depressive disorder with anxiety (CMS/HCC) 02/02/2025 Travel 01/19/2025 Telephone [facility] [address] [place] [address] Naomi Kim MD from Last 3 Months Immunizations Immunization Administration [...] Answer Date Recorded Patient Health Questionnaire-9 Score 10 02/26/2025 Patient Health Questionnaire-9 Score 10 02/26/2025 Last PHQ-9: Questionnaire Data Not on file 1 Housing Stability Answer Date Recorded What is [...] Date Recorded Patient Health Questionnaire-2 Score 2 02/26/2025 Internet Access Answer Date Recorded Internet Access [...] Description 06/13/2025 9:45 AM EST Office Visit [facility] [address] [place] [address] Naomi Kim MD [address] [place] [address] 07/23/2025 2:30 PM EDT Office Visit [facility] OPTOMETRY [address] [place] [address] Eliana Jiménez, OD [address] [place] [address] Health Maintenance Due Date Last Done Comments CT Colonography 1955 Colonoscopy 1955 Colorectal Cancer Screening 1955 FIT DNA/Cologuard 1955 FIT 1955 FOBT 1955 Sigmoidoscopy 1955 COVID-19 Vaccine ( season) 2025 04/05/2023, 04/01/2021, 08/28/2020 Influenza Vaccine (#1) 2025 , 02/15/2023, 01/29/2022, Additional history exists Depression Monitoring 08/27/2025 02/26/2025, 025 Mammogram 11/20/2025 11/20/2024, 02/15, 10/17/2020 Diabetes: Hemoglobin [...] Procedure Name Priority Date/Time Associated Diagnosis Comments XR CERVICAL SPINE 4V Routine 02/27/2025 1:26 PM EDT HEMOGLOBIN A1C Routine 11/27/2024 12:22 PM EDT Mild cognitive disorder BI MAMMOGRAM [...] Recently Relevant to Health Maintenance Results * XR CERVICAL SPINE 4V (02/27/2025 1:26 PM EDT) Anatomical Region Laterality Modality Abdomen Radiographic Svetlana ging 02/27/2025 1:26 PM EDT Narrative 02/28/2025 7:32 AM EDT [facility] [address] [place] [address] [address] [place] [address] XRay Report Signed Patient: Carolyn Kebede I MR# : [id number] : 1955 Acct:[id number] Age/Sex: 70 / F ADM Date: 02/27/25 Loc: HO.HOSX Attending Dr: Ruslan TORRES Ordering Physician: Ruslan Escalera Date of Service: 02/27/25 Procedure(s): XR cervical spine 4V Accession Number(s): [id number] cc: Ruslan Escalera; Naomi Kim Reason for Exam: M50.90 - Cervical disc disorder, unspecified, unspecified cervical region EXAMINATION: XR CERVICAL SPINE 4-5 VIEWS HISTORY: M50.90 - Cervical disc disorder, unspecified, unspecified cervical region COMPARISON: There are no prior studies available for comparison. FINDINGS: AP, and neutral, flexion, and extension lateral views of the cervical spine are submitted. Osseous mineralization is normal. There is reversal of the normal cervical lordosis. Seven cervical vertebral bodies are identified maintaining normal height without evidence of fracture. There is slight anterolisthesis of C3 on C4 measuring 3 mm in the neutral position, 4 mm with flexion, and 2 mm with extension. There is moderate degenerative disc disease with disc space narrowing and osteophyte formation. There is osteoarthritis of the facet joints. There is no prevertebral soft tissue swelling. XR/XR cervical spine 4V IMPRESSION: Reversal of the normal cervical lordosis. Slight anterolisthesis of C3 on C4 as described. Moderate degenerative disc disease. Electronically signed by: Richard Beach MD 02/28/2025 07:29 AM EDT RP Dictated By: Richard Beach MD Signed By: <Electronically signed by Richard Beach MD in OV> 02/28/25 0729 DD/ 1326 TD/TT: 02/27/25 1334 Retort Cooler: Procedure Note Donotuseinterpreter, Image - 02/28/2025 [facility] [address] [place] [address] [address] [place] [address] XRay Report Signed Patient: Carolyn Kebede IMR# : [id number] : 1955cct:[id number] Age/Sex: 70 / FADM Date: 02/27/25 Loc: HOHOSX Attending Dr: Ruslan TORRES Ordering Physician: Ruslan Escalera Date of Service: 02/27/25 Procedure(s): XR cervical spine 4V Accession Number(s): [id number] cc: Ruslan Escalera; Naomi Kim Reason for Exam: M50.90 - Cervical disc disorder, unspecified,unspecified cervical region EXAMINATION: XR CERVICAL SPINE 4-5 VIEWS HISTORY: M50.90 - Cervical disc disorder, unspecified, unspecified cervical region COMPARISON: There are no prior studies available for comparison. FINDINGS: AP, and neutral, flexion, and extension lateral views of the cervical spine are submitted. Osseous mineralization is normal. There is reversal of the normal cervical lordosis. Seven cervical vertebral bodies are identified maintaining normal height without evidence of fracture. There is slight anterolisthesis of C3 on C4 measuring 3 mm in the neutral position, 4 mm with flexion, and 2 mm with extension. There is moderate degenerative disc disease with disc space narrowing and osteophyte formation. There is osteoarthritis of the facet joints. There is no prevertebral soft tissue swelling. XR/XR cervical spine 4V IMPRESSION: Reversal of the normal cervical lordosis. Slight anterolisthesis of C3 on C4 as described. Moderate degenerative disc disease. Electronically signed by: Richard Beach MD 02/28/2025 07:29 AM EDT RP Dictated By: Richard Beach MD Signed By: <Electronically signed by Richard Beach MD in OV> 02/28/25 0729 DD/ 1326 TD/TT: 02/27/25 1334 Retort Cooler: [facility] External Provider IMG XR PROCEDURES Final Result * Hemoglobin A1c (11/27/2024 12:22 PM EDT) Hemoglobin A1c 5.8 <6.0 % [facility] Comment:Hemoglobin A1C Refer ence Range Adults: 4.8 - 6.0 % Non diabetic: < 6.0 % Goal: < 7.0 %Additional Action Suggested: > 8.0 %Note: Hemoglobin A1c results are invalid for patients with abnormal amounts of HbF. Blood transfusions may impact the HbA1c concentration in the patient sample. Estimated Average Glucose 120 mg/dL [facility] Comment:eAG = Estimated ave rage glucose which is %A1C expressed asaverage glucose, using the formula of the X7W-LufzcscChfnsft Glucose study (ADAG), Diabetes Care, Vol.31,#8,Dec. 2007 Blood Venous blood specimen / Unknown 11/27/2024 12:22 PM EDT 11/27/2024 1:43 PM EDT Naomi Kim MD LAB BLOOD ORDERABLES Final Res ult [facility] [address] [place] [phone] * BI Mammogram Screening Tomosynthesis Bilateral (11/20/2024 2:00 PM EDT) Anatomical Region Laterality Modality Breast Bilateral Mammography 11/20/2024 2:00 PM EDT Narrative 12/01/2024 9:51 PM EDT [address] [place] [address] Mammography Report Signed Patient: Carolyn Kebede I MR# : [id number] : 1955 Acct:[id number] Age/Sex: 69 / F ADM Date: 11/20/24 Loc: HO.MAMMO Attending Dr: Naomi Kim MD Ordering Physician: Naomi Kim Results: 1Negative Date of Service: 11/20/24 Follow Up: 1 Year From Orig ina Mammogram Procedure(s): MM tomosynthesis screening BI Accession Number(s): [id number] cc: Naomi Kim EXAMINATION: MM SCREENING DIGITAL [...] Erlinda Barclay DO 12/01/2024 09:48 PM EDT Dictated By: Erlinda Barclay DO Signed By: <Electronically signed by Erlinda Barclay DO in OV> 12/01/24 2148 DD/ 1400 TD/TT: 11/20/24 1413 Retort Cooler: Procedure Note Donotuseinterpreter, Image - 12/01/2024 [facility] [address] [place] [address] Mammography Report Signed Patient: Carolyn Kebede IMR# : [id number] : 1955cct:[id number] Age/Sex: 69 / FADM Date: 11/20/24 Loc: HO.MAMMO Attending Dr: Naomi Kim MD Ordering Physician: Gonzalo Kimults: 1Negative Date of Service: 11/20/24Follow Up: 1 Year From Orig inal Mammogram Procedure(s): MM tomosynthesis screening BI Accession Number(s): [id number] cc: Naomi Kim EXAMINATION: MM SCREENING DIGITAL [...] Erlinda Barclay DO 12/01/2024 09:48 PM EDT Dictated By: Erlinda Barclay DO Signed By: <Electronically signed by Erlinda Barclay DO in OV> 12/01/248 DD/ 1400 TD/TT: 11/20/24 141 Retort Cooler: Naomi Kim MD IM BI PROCEDURES Edited Resul t - Final * Pap Smear (03/17/2024 11:36 AM EDT) 03/17/2024 11:3 6 AM EDT 03/20/2024 8:30 AM EST St[facility] - 03/22/2024 11:46 AM EST ----- ------- Name: Carolyn Kebede I Age/Sex: 69/F : 1955 Unit#: [id number] Attend Dr: Naomi Kim Re03/17/24 Status: [facility] Disch: ----- ------- SPEC : [id number] RECD: 03/20/24 STATUS: KATELYNN HERNANDEZ NUM: [id number] MAURO: 03/17/24-[address] [facility] [address]: Naomi Kim ENTERED: 03/20/24-1028 SP TYPE: Pap Smr [facility] DR: ORDERED: Pap Smear Interpretation Satisfactory for [...] Kim MD LAB CYTOLOGY ORDERABLES Final Result [facility] [address] [place], [place] [phone] * (ABNORMAL) Lipid Panel, Standard (02/15/2023 11:51 AM EDT) Triglycerides 108 <150 mg/dL [facility] Comment:Desirable Triglyceri de: less than 150 mg/dLBorderline High Triglyceride 150-199 mg/dLHigh Triglyceride: 200-499 mg/dLVery High Triglyceride: greater than or equal to 5OO mg/dL Cholesterol 201(H) <200 mg/dL [facility] Comment:Desirable Cholestero l: less than 200 mg/dLBorderline High Cholesterol: 200-239 mg/dLHigh Cholesterol: greater than 239 mg/dL LDL Cholesterol Calculated 132(H) <100 mg/dL [facility] Comment:Desirable LDL: less than 100 mg/dLNear Optimal/Above Optimal LDL: 110- 129 mg/dLBorderline High LDL: 130-159 mg/dLHigh LDL: 160-189 mg/dLVery High LDL: greater than or equal to 190 mg/dL HDL Cholesterol 48 >40 mg/dL [facility] Comment:Desirable HDL: great er than 40 mg/dL Note: This HDL assay may give artificially low results in patients with liver disease. Blood Venous blood specimen / Unknown 02/15/2023 11:51 AM EDT 02/15/2023 1:18 PM EDT Naomi Kim MD LAB BLOOD ORDERABLES Final Res ult Performing Organization Address City/[facility]/ZIP Co de Phone Number [facility] [address] [place] [phone] * HPV mRNA E6/E7 REFLEX TO HPV 16, 18/45 (10/02/2020 10:16 AM EDT) Pathologist [facility] HPV nRNA E6/E7 Not Detected Not Detected [facility] Comment: Methodology: Manhole Stripper-Mediated Amplification This assay detects E6/E7 viral messenger RNA (mRNA) from 14 high-risk HPV types (16,18,31,33,35,39,45,51,52,56,58,59,66,68). The analytical performance characteristics of this assay have been determined by [employer]. The modifications have not been cleared or approved by the FDA. This assay has been validated pursuant to the CLIA regulations and is used for clinical purposes. For additional information, please refer to http://education.ShopRunner.Thinkfuse/faq/DGN429b4 (This link if provided for information/ educational purposes only.) 10/02/2020 10:1 6 AM EDT Naomi Kim MD LAB CYTOLOGY ORDERABLES Final Result Performing Organization Address [facility] Co de Phone Number [facility] [address] * HEPATITIS C AB W/REFL TO HCV RNA, QN, PCR (09/20/2020 3:34 PM EDT) Pathologist [facility] HEPATITIS C ANTIBODY NON-REACT [facility] NON-REACT [facility] INDEX 0.01 <1.00 [facility] Comment: HCV antibody was non-reactive. There is no laboratory evidence of HCV infection. In most cases, no further action is required. However, if recent HCV exposure is suspected, a test for HCV RNA (test code 77216) is suggested. For additional information please refer to http://education.ShopRunner.Thinkfuse/faq/FVY26h6 (This link is being provided for informational/ educational purposes only.) 09/20/2020 3:34 PM EDT us Naomi Kim MD HISTORICAL/NON ORDERABLE LABS Final Result Performing Organization Address City/State/[facility] Co de Phone Number [facility] [address] from Last 3 Months or Most Recently Relevant to Health Maintenance Insurance [facility] STANDARD [facility] DUAL COMPLETE [place] [id number] Care Teams Elevator Service Technician Relationship Specialty Start Date End Date Naomi Kim MD [address] [place] [address] [place] [address] PCP - General Family Medicine 08/26/20
--- OUTSIDE RECORDS SUMMARY | 2025-04-20 20:02 | XMS_ITS | Encounter Summary ---
Author Organization [employer] Address [address] [address] [place] [address] Care Team Providers Care Galvanizing Pot Runner Name Role Phone Naomi Kim MD Primary Care Provider [phone] Encounter Details Date Type Department Care Team (Latest Contact Info) Description 04/16/2025 Travel Social History Tobacco Use Types Packs/Day [...] Description 06/13/2025 9:45 AM EST Office Visit [facility] MEDIC[facility] [address] [place] [address] Naomi Kim MD [address] [place] [address] 07/23/2025 2:30 PM EDT Office Visit [facility] OPTOMETRY [address] [place] [address] TarkaEliana, OD [address] [place] [address] documented as of this encounter Visit Diagnoses Not on filedocumented in this encounter Additional Health Concerns Assessment Noted Time PHQ-9 Depression Total Score: 10 025 10:15 AM EDT documented as of this encounter Care Teams Galvanizing Pot Runner Relationship Specialty Start Date End Date Naomi Kim MD [address] [place] [address] PCP - General Family Medicine 08/26/20 documented as of this encounter
--- OUTSIDE RECORDS SUMMARY | 2025-04-20 20:02 | XMS_ITS | Clinical Summary ---
Author Organization [facility] Address [address] [place] [phone] Phone Care Team Providers Care Composition Tile Layer Name Role Phone Naomi Kim MD Primary [...] topic Medical Devices Not on file Insurance [facility] MEDICARE REPLACEMENT MEDICARE PART A & B [facility] MEDICARE REPLACEMENT [place] [id number] MEDICARE PART A & B MEDICARE REPLACEMENT MEDICARE PART A & [place] [address] [place] [address] MEDICARE REPLACEMENT MEDICARE PART A & B [facility] MEDICARE REPLACEMENT MEDICARE PART A & B [facility] MEDICARE REPLACEMENT MEDICARE PART A & B Care Teams Composition Tile Layer Relationship Specialty Start Date End Date Naomi Kim MD [address] [place] [phone] PCP - General 10/03/24 Additional Source Comments The information contained in this document represents components of the legal health record. It is not the complete legal health record.[facility]
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
--- OUTSIDE RECORDS SUMMARY | 2025-04-20 20:02 | XMS_ITS | Encounter Summary ---
Author Organization [employer] Address [address] [facility] [address] [place] [address] Care Team Providers Care Product Scientist Name Role Phone Naomi Kim MD Primary Care Provider [phone] Encounter Details Date Type Department Care Team (Late Contact Info) Description 11/10/2022 Orders Only [facility] [address] [place], [place] [phone] Shanice Navas LPN Social History Tobacco Use [...] Department Care Team (Late Contact Info) Description 06/13/2025 9:45 AM EST [facility] [address] [place] [phone] Naomi Kim MD [address] [place] [phone] 07/23/2025 2:30 PM EDT [facility] [address] [place] [address] Eliana Jiménez, OD [address] [place] [address] documented as of this encounter Visit Diagnoses Not on filedocumented in this encounter Care Teams Product Scientist Relationship Specialty Start Date End Date Naomi Kim MD [address] [place] [phone] PCP - General Family Medicine 08/26/20 documented as of this encounter
== END 2025-04-20 17:41 | disposition home or self-care (01) ==
LOC: HO.MRI 17:40
PROVIDERS: PCP General Practice; Visit Provider Physician Assistant
DX: R20.0 Anesthesia of skin (principal); M50.90 Cervical disc disorder, unspecified, unspecified cervical region
CPT/HCPCS: 72141

== ENCOUNTER → 2025-04-20 17:51 | Outpatient (BNV) | payer OTHER, SELFPAY | PROVIDERS: PCP General Practice; Visit Provider Radiology Diagnostic Radiology | DX: M50.90 Cervical disc disorder, unspecified, unspecified cervical region (principal); M47.812 Spondylosis without myelopathy or radiculopathy, cervical region; M41.82 Other forms of scoliosis, cervical region | CPT/HCPCS: 72141 ==

== ENCOUNTER 2025-04-27 13:47 | Outpatient (AMB) | payer OTHER, SELFPAY ==
--- NOTE | 2025-04-27 14:22 | A.SPINEOV_ITS ---
Intake Visit Reasons: MRI f/up Intake Note: Ms. Sanjay Grace is here today to F/u on the results to her MRI. Aerial Applicator Pilot Required: Yes Aerial Applicator Pilot Language: Edge Runner Services: Aerial Applicator Pilot Present Aerial Applicator Pilot Name: Radha Valentin LM Allergies No Known Allergies Allergy (Verified 04/27/25 14:56) Assessment & Plan Assessment & Plan (1) Cervical disc disorder: Code(s): M50.90 - Cervical disc disorder, unspecified, unspecified cervical region Category: Medical Plan Mrs Grace came back in today in follow-up. She has a myelopathic clinical presentation and we did a follow-up cervical MRI at [place] to evaluate things a little more closely. We also did x-rays. Please refer to my last note for the specifics of her neurological examine her presentation. Her cervical MRI shows that she has moderate to severe stenosis at C3-4, C4-5 and C5-6. 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 The x-rays done show she does have borderline suboptimal bone quality. Dr. Dillon thinks that we can treat this correcting the deformity with an anterior cervical fusion C3-4, C4-5 C5-6, with posterolateral mass screws from C3-C6. We would have to do the surgery booked as a 360 degree procedure that would 1st involved doing the anterior diskectomy and cage insertion, followed by closure of the wound, then doing the lateral mass screws from the back pull the patient into alignment, then close up the back part of the neck, reopen the front part of the neck and lock it all down with an anterior plate from C3-C6. He does not think we need to do a cervical laminectomy if we can get the alignment correct. It looks like based on her x-rays that she will be able to reduce on the operating table. I spent some time with help of legal referee Radha Florentino going over this with the patient, discussing the procedure at length but I would like to have the patient sit down with the family members so we can go over this again. We talked about the fact that the 1st goal of surgery would be to prevent her from getting worse and that unfortunately there would be no way to guarantee that she would get better. I expect she has she would need to be in the hospital for 2 maybe 3 nights, possibly need a rehab stay. We do not think she would need to be in the ICU. She does not have any underlying lung problems at baseline according to the patient. Once we obtain the CT scan to get a better look at her bone quality, I will sit down with her and her daughter and go over the procedure again at length and we can book her for it if she wishes to proceed. Total amount of time spent in this visit was 20 minutes in discussion of symptoms, cervical imaging results and subsequent plan of care Ruslan Dillon MD,PhD [facility] Orders: Orders CT cervical spine wo IV con Today M50.90 - Cervical disc disorder, unspecified, unspecified cervical region Coding Level of Care Code Est Pt Level 3 (44378) Diagnoses Cervical disc disorder M50.90
--- OUTSIDE RECORDS SUMMARY | 2025-04-27 19:14 | XMS_ITS ---
Author Name Naty MALLOY MRS. Lopez Address [address] [place] [address] Phone [phone] [facility] Care Team Providers Care Pinion Sorter Name Role Phone Jessica Alfonso Unavailable [phone] Naomi iKm Unavailable [phone] [facility] Unavailable Reason for Referral Not Available Allergies, [...] tive Time Current Smoking Status Never smoker 2025-04-16 3 Sex Female Gender identity Woman History of Procedures Procedures Service Procedure code Service date Servicing provider Phone# New patient 15-29min; 1 minor problem; add modifier 95 for video, modifier 93 for phone [phone] No Data Available No Data Availa [...] Do you have a Durable Power of All Round Butcher for Healthcare, or Healthcare Proxy Or Guardianship? [...]
--- OUTSIDE RECORDS SUMMARY | 2025-04-27 19:15 | XMS_ITS | Encounter Summary ---
Author Organization [employer] Address [address] [place] [address] Care Team Providers Care Electrical Wiring Lineman Name Role Phone Naomi Kim MD Primary Care Provider [phone] Encounter Details Date Type Department Care Team (Late st Contact Info) Description 04/20/2025 Orders Only [facility] External Provider, [facility] Social History Tobacco Use Types Packs/Day Years [...] Description 06/13/2025 9:45 AM EST Office Visit [facility] MEDICINE [address] [place] [address] Naomi Kim MD [address] [place] [address] 07/23/2025 2:30 PM EDT Office Visit [facility] OPTOMETRY [address] [place] [address] Eliana Jiménez, OD [address] [place] [address] documented as of this encounter Procedures Procedure Name Priority Date/Time Associated Diagnosis Comments MR CERVICAL SPINE WO CONTRAST Routine 04/20/2025 5:45 PM EST documented in this encounter Results * MR Cervical Spine w/o Contrast (04/20/2025 5:45 PM EST) Anatomical Region Laterality Modality Spine, C-spine Magnetic Resonan ce 04/20/2025 5:45 PM EST Narrative 04/23/2025 9:03 AM EST [facility] [address] [place] [address] Magnetic Resonance Report Signed Patient: Sanjay GraceCarolyn Segura MR# : [id number] : 1955 Acct:[id number] Age/Sex: 70 / F ADM Date: 04/20/25 Loc: HO.MRI Attending Dr: Ruslan TORRES Ordering Physician: Ruslan Escalera Date of Service: 04/20/25 Procedure(s): MR cervical spine wo con Accession Number(s): [id number] cc: Ruslan Escalera; Naomi Kim Reason for Exam: M50.90 - Cervical disc disorder, unspecified, unspecified cervical region EXAMINATION: MR CERVICAL SPINE WITHOUT CONTRAST CLINICAL INFORMATION: Cervical disc disorder, unspecified. 70-year-old female, Neck pain ongoing, radiating to right arm. Patient also is complaining of toe numbness bilaterally. COMPARISON: No prior MRI. Cervical radiographs 02/27/2025. TECHNIQUE: MRI of the cervical spine was obtained using routine sequences without contrast. Examination performed on a 1.5 Tamie Siemens high-field unit, using standard sequences. FINDINGS: CORONAL ALIGNMENT: -There is a mild right convex scoliosis, apex at C4. SAGITTAL ALIGNMENT: -There is a reversal of the normal lordosis, centered at C4. -There is a 2 mm degenerative anterolisthesis of C3 on C4. -There are stairstep type degenerative 2 mm retrolistheses of C5 on C6 and C6 on C7. CRANIOCERVICAL JUNCTION/C1-2 ARTICULATIONS: -Intact and aligned. 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 VERTEBRAL BODIES/BONE MARROW: -Mild flattening of the C4, C5, and C6 vertebral bodies is present. -There are prominent Schmorl's nodes in the endplates of C5 and C6. -There are edematous type endplate changes at C5-6, and to a lesser degree at C4-5. -There is no abnormal infiltrating bone marrow signal. DISCS: -Severe loss of disc height and signal is present at C5-6. There is moderate loss at C3-4, and C4-5. There is mild loss of C2-3. CERVICAL CORD: -Normal in signal throughout. There is mild cord impingement present at C3-4, C4-5, and C5-6 as detailed below. There is near cord impingement at C6-7. -There is no mass or expansion of the cord. PARAVERTEBRAL SOFT TISSUES: -No paravertebral or paraspinous edema or abnormal fluid collection. -2 thyroid gland is obscured by a saturation band. -Normal flow voids in the vertebral arteries. VISUALIZED INTRACRANIAL STRUCTURES: -Imaged contents of the posterior fossa appear normal. AXIAL DISC SPACE IMAGING: C2-C3: Minimal disc bulging is present. Severe left facet hypertrophy is present. There is mild central canal stenosis, and severe left neural foraminal stenosis. The right neural foramen is patent. C3-C4: There is disc uncovering secondary to anterolisthesis, with a diffuse disc bulge present. There is severe left and mild right facet hypertrophic arthropathy. There is bilateral uncinate spurring. There is mild cord impingement with mild flattening and loss of CSF space both ventrally and dorsally. There is no cord signal abnormality. There is severe left greater than right neural foraminal impingement C4-C5: There is a diffuse disc bulge present, which coupled with bilateral moderate facet hypertrophy, uncinate spurring, and posterior ligamentous thickening is resulting in mild cord impingement, with loss of ventral and dorsal CSF space. There is no cord signal abnormality. There is severe bilateral neural foraminal impingement. C5-C6: There is shallow disc bulging asymmetric to the right, contiguous with bilateral prominent uncinate spurring. There is posterior ligamentous infolding/thickening. There is mild to moderate bilateral hypertrophic facet changes right greater than left. Combination of findings is resulting in near cord impingement, with effacement of both ventral and dorsal CSF space. There is severe right neural foraminal encroachment, and moderate left. C6-C7: There is a left paracentral and lateral protrusion of disc material, which extends into the left neural foramen. Moderate bilateral uncinate spurring is present. Mild bilateral facet spurring is present. The combination of findings is resulting in mild to moderate central canal stenosis, and moderate bilateral neural foraminal stenosis. C7-T1: There is no disc pathology. Mild facet hypertrophy and degeneration bilaterally. There is no significant central canal narrowing. There is mild bilateral neural foraminal narrowing. T1-T5: There is no significant central canal encroachment. MR/MR cervical spine wo con IMPRESSION: 1. Multilevel moderate to severe cervical spondylosis as detailed above, most notable spanning C3-C6, with resultant mild cord impingement/flattening present at C3-4, C4-5, and C5-6, but no definite cord signal abnormality. 2. Reversal of the normal lordosis with a mild associated right convex scoliosis centered at C4. 3. There are edematous type endplate changes present at C4-5 and to a greater degree at C5-6. 4. See the body the report for details. Electronically signed by: Ian Boyer MD 04/23/2025 09:00 AM [facility] Dictated By: Ian Boyer MD Signed By: <Electronically signed by Ian Boyer MD in OV> 04/23/25 0900 DD/ 1745 TD/TT: 04/20/25 1803 Waiter/Waitress Room Service: Procedure Note Donotuseinterpreter, Image - 04/23/2025 [place] [address] Magnetic Resonance Report Signed Patient: Carolyn Kebede [facility]# : [id number] : 1955cct:[id number] Age/Sex: 70 / FADM Date: 04/20/25 Loc: HO.MRI Attending Dr: Ruslan TORRES Ordering Physician: Ruslan Escalera Date of Service: 04/20/25 Procedure(s): MR cervical spine wo con Accession Number(s): [id number] cc: Ruslan Escalera; Naomi Kim Reason for Exam: M50.90 - Cervical disc disorder, unspecified,unspecified cervical region EXAMINATION: MR CERVICAL SPINE WITHOUT CONTRAST CLINICAL INFORMATION: Cervical disc disorder, unspecified. 70-year-old female, Neck pain ongoing, radiating to right arm. Patient also is complaining of toe numbness bilaterally. COMPARISON: No prior MRI. Cervical radiographs 02/27/2025. TECHNIQUE: MRI of the cervical spine was obtained using routine sequences without contrast. Examination performed on a 1.5 Tamie Siemens high-field unit, using standard sequences. FINDINGS: CORONAL ALIGNMENT: -There is a mild right convex scoliosis, apex at C4. SAGITTAL ALIGNMENT: -There is a reversal of the normal lordosis, centered at C4. -There is a 2 mm degenerative anterolisthesis of C3 on C4. -There are stairstep type degenerative 2 mm retrolistheses of C5 on C6 and C6 on C7. CRANIOCERVICAL JUNCTION/C1-2 ARTICULATIONS: -Intact and aligned. 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 VERTEBRAL BODIES/BONE MARROW: -Mild flattening of the C4, C5, and C6 vertebral bodies is present. -There are prominent Schmorl's nodes in the endplates of C5 and C6. -There are edematous type endplate changes at C5-6, and to a lesser degree at C4-5. -There is no abnormal infiltrating bone marrow signal. DISCS: -Severe loss of disc height and signal is present at C5-6. There is moderate loss at C3-4, and C4-5. There is mild loss of C2-3. CERVICAL CORD: -Normal in signal throughout. There is mild cord impingement present at C3-4, C4-5, and C5-6 as detailed below. There is near cord impingement at C6-7. -There is no mass or expansion of the cord. PARAVERTEBRAL SOFT TISSUES: -No paravertebral or paraspinous edema or abnormal fluid collection. -2 thyroid gland is obscured by a saturation band. -Normal flow voids in the vertebral arteries. VISUALIZED INTRACRANIAL STRUCTURES: -Imaged contents of the posterior fossa appear normal. AXIAL DISC SPACE IMAGING: C2-C3: Minimal disc bulging is present. Severe left facet hypertrophy is present. There is mild central canal stenosis, and severe left neural foraminal stenosis. The right neural foramen is patent. C3-C4: There is disc uncovering secondary to anterolisthesis, with a diffuse disc bulge present. There is severe left and mild right facet hypertrophic arthropathy. There is bilateral uncinate spurring. There is mild cord impingement with mild flattening and loss of CSF space both ventrally and dorsally. There is no cord signal abnormality. There is severe left greater than right neural foraminal impingement C4-C5: There is a diffuse disc bulge present, which coupled with bilateral moderate facet hypertrophy, uncinate spurring, and posterior ligamentous thickening is resulting in mild cord impingement, with loss of ventral and dorsal CSF space. There is no cord signal abnormality. There is severe bilateral neural foraminal impingement. C5-C6: There is shallow disc bulging asymmetric to the right, contiguous with bilateral prominent uncinate spurring. There is posterior ligamentous infolding/thickening. There is mild to moderate bilateral hypertrophic facet changes right greater than left. Combination of findings is resulting in near cord impingement, with effacement of both ventral and dorsal CSF space. There is severe right neural foraminal encroachment, and moderate left. C6-C7: There is a left paracentral and lateral protrusion of disc material, which extends into the left neural foramen. Moderate bilateral uncinate spurring is present. Mild bilateral facet spurring is present. The combination of findings is resulting in mild to moderate central canal stenosis, and moderate bilateral neural foraminal stenosis. C7-T1: There is no disc pathology. Mild facet hypertrophy and degeneration bilaterally. There is no significant central canal narrowing. There is mild bilateral neural foraminal narrowing. T1-T5: There is no significant central canal encroachment. MR/MR cervical spine wo con IMPRESSION: 1. Multilevel moderate to severe cervical spondylosis as detailed above, most notable spanning C3-C6, with resultant mild cord impingement/flattening present at C3-4, C4-5, and C5-6, but no definite cord signal abnormality. 2. Reversal of the normal lordosis with a mild associated right convex scoliosis centered at C4. 3. There are edematous type endplate changes present at C4-5 and to a greater degree at C5-6. 4. See the body the report for details. Electronically signed by: Ian Boyer MD 04/23/2025 09:00 AM [facility] Dictated By: Ian Boyer MD Signed By: <Electronically signed by Ian Boyer MD in OV> 04/23/25 0900 DD/ 1745 TD/TT: 04/20/25 1803 Waiter/Waitress Room Service: [facility] External Provider IMG MRI PROCEDURES Edited Result - Final documented in this encounter Visit Diagnoses Not on filedocumented in this encounter Additional Health Concerns Assessment Noted Time PHQ-9 Depression Total Score: 10 02/26/ 025 10:15 AM EDT documented as of this encounter Care Teams Electrical Wiring Lineman Relationship Specialty Start Date End Date Naomi Kim MD [address] [place] [id number] PCP - General Family Medicine 08/26/20 documented as of this encounter
--- OUTSIDE RECORDS SUMMARY | 2025-04-27 19:15 | XMS_ITS | Clinical Summary ---
Author Organization [employer] Address [address] [facility] 7t [place] [address] Care Team Providers Care Superintendent Geophysical Laboratory Name Role Phone Naomi Kim MD Primary Care Provider [phone] Allergies No known active allergies Medications * This document contains information received from the source organization and may not represent a complete record from that organization. DULoxetine (Cymbalta) [address] capsule Take 1 capsule (20 mg) by mouth Once per day. Do not crush or chew. 90 capsule 3 10/28/19 25 026 Active fluticasone (Flonase) 50 MCG/ACT nasal sprayIndicatio ns:Stuffy nose Administer 1-2 sprays into each nostril Once per day for 14 days. Shake gently. Before first use, prime pump. After use, clean tip and replace cap. 16 g 11 10/28/19 25 Active loratadine (Claritin) 10 MG tabletIndicati ons:Chronic pruritus Take 1 tablet (10 mg) by mouth in the morning. 90 tablet 3 10/28/19 25 Active magnesium 200 MG tabletIndicati ons:Left leg pain Take 1 tablet (200 mg) by mouth Once per day. 90 tablet 10/28/19 25 Active melatonin 5 MG tabletIndicati ons:Primary insomnia Take 1 tablet (5 mg) by mouth if needed at bedtime (insomnia). 90 tablet 3 10/28/19 25 026 Active omeprazole (PriLOSEC) [address] capsuleIndicat ions:Gastroeso phageal reflux disease without esophagitis Take 1 capsule (20 mg) by mouth before breakfast. Do not crush or chew. 90 capsule 3 10/28/19 25 Active albuterol 108 (90 Base) MCG/ACT inhaler Inhale 2 puffs every 6 (six) hours if needed for wheezing. 18 g 11 10/28/19 25 026 Active benzocaine (Orajel) 10 % mucosal gelIndications :Oral lesion Use in the mouth or throat if needed in the morning, at noon, and at bedtime for mucositis. 5.3 g 12/12/19 25 026 Active gabapentin (Neurontin) 100 MG capsule Take 1 capsule (100 mg) by mouth if needed at bedtime (neuropathy). 90 capsule 3 02/03/20 25 026 Active senna (Senokot) 8.6 MG tablet TAKE 1 TABLET BY MOUTH EVERY DAY NEEDED FOR CONSTIPATION 90 tablet 3 04/23/20 25 Active olmesartan (BENIcar) 5 MG tablet TAKE 1 TABLET BY MOUTH EVERY DAY 90 tablet 3 04/23/20 25 Active Senna-Time 8.6 MG tablet Take 1 tablet (8.6 mg) by mouth if needed each day for constipation. 90 tablet 1 10/28/19 25 025 Discontinued olmesartan (Benicar) 5 MG tablet Take 1 tablet (5 mg) by mouth Once per day. 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 Date Type Department Care Team Description 04/23/2025 Refill [facility] [address] [place] [address] Naomi Kim MD 04/20/2025 Orders Only [facility] External Provider, [facility] 04/16/2025 Travel 03/01/2025 Telephone [facility] [address] [place] [address] Naomi Kim MD Durable Medical Equipment 02/27/2025 Orders Only [facility] External Provider, [facility] 02/26/2025 3:15 PM EDT Office Visit [facility] [address] [place] [address] Tarka, Eliana, OD Dry eyes, bilateral (Primary Dx); Presbyopia; Retinal hemorrhage, right 02/26/2025 Travel 02/20/2025 Travel 02/07/2025 Telephone [facility] [address] [place] [address] Naomi Kim MD Durable Medical Equipment ([facility] DME: Hand Held Shower Head.) 02/02/2025 11:30 AM EDT Office Visit [facility] [address] [place] [address] Naomi Kim MD Swan neck deformity of cervical spine (Primary Dx); Postmenopausal status; Muscle spasms of neck; Chronic right shoulder pain; Post-traumatic stress; Primary hypertension; Environmental allergies; Recurrent moderate major depressive disorder with anxiety (CMS/HCC) 02/02/2025 Travel from Last 3 Months Immunizations Immunization [...] Description 06/13/2025 9:45 AM EST Office Visit [facility] [address] [place] [address] Naomi Kim MD [address] [place] [address] 07/23/2025 2:30 PM EDT Office Visit [facility] [address] [place] [address] Eliana Jiménez, OD [address] [place] [address] Health Maintenance Due Date Last Done Comments [...] WO CONTRAST Routine 04/20/2025 5:45 PM EST XR CERVICAL SPINE 4V Routine 02/27/2025 1:26 [...] Relevant to Health Maintenance Results * MR Cervical Spine w/o Contrast (04/20/2025 5:45 PM EST) Anatomical Region Laterality Modality Spine, C-spine Magnetic Resonan ce 04/20/2025 5:45 PM EST Narrative 04/23/2025 9:03 AM EST [address] [address] Magnetic Resonance Report Signed Patient: Carolyn Kebede I MR# : [id number] : 1955 Acct:[id number] Age/Sex: 70 / F ADM Date: 04/20/25 Loc: HO.MRI Attending Dr: Ruslan TORRES Ordering Physician: Ruslan Escalera Date of Service: 04/20/25 Procedure(s): MR cervical spine wo con Accession Number(s): [id number] cc: Ruslan Escalera; WalesNaomi Reason for Exam: M50.90 - Cervical disc [...] by: Ian Boyer MD 04/23/2025 09:00 AM EST Dictated By: Ian Boyer MD Signed By: <Electronically signed by Ian Boyer MD in OV> 04/23/25 0900 DD/ 1745 TD/TT: 04/20/25 1803 District Administrative Assistant: Procedure Note Donotuseinterpreter, Image - 04/23/2025 [place] [address] Magnetic Resonance Report Signed Patient: Carolyn Kebede [facility]# : [id number] : 1955cct:[id number] Age/Sex: 70 / FADM Date: 04/20/25 Loc: HO.MRI Attending Dr: Ruslan TORRES Ordering Physician: Ruslan Escalera Date of Service: 04/20/25 Procedure(s): MR cervical spine wo con Accession Number(s): [id number] cc: Ruslan Escalera; Naomi Kim Reason for [...] by: Ian Boyer MD 04/23/2025 09:00 AM [facility] Dictated By: Ian Boyer MD Signed By: <Electronically signed by Ian Boyer MD in OV> 04/23/25 0900 DD/ 1745 TD/TT: 04/20/25 1803 District Administrative Assistant: [facility] External Provider IMG MRI PROCEDURES Edited Result - Final * XR CERVICAL SPINE 4V (02/27/2025 1:26 PM EDT) Anatomical Region Laterality Modality Abdomen Radiographic Svetlana ging 02/27/2025 1:26 PM EDT Narrative 02/28/2025 7:32 AM EDT [facility] [address] [place] [address] Drive [address] [place] [address] XRay Report Signed Patient: Carolyn Kebede I MR# : [id number] : 1955 Acct:[id number] Age/Sex: 70 / F ADM Date: 02/27/25 Loc: KITTY Attending Dr: Ruslan TORRES Ordering Physician: Ruslan Escalera Date of Service: 02/27/25 Procedure(s): XR cervical spine 4V Accession Number(s): [id number] cc: Ruslan Escalera; Naomi Kim Reason for [...] Richard Beach MD 02/28/2025 07:29 AM EDT Dictated By: Richard Beach MD Signed By: <Electronically signed by Richard Beach MD in OV> 02/28/25 0729 DD/ 1326 TD/TT: 02/27/25 1334 District Administrative Assistant: Procedure Note Donotuseinterpreter, Image - 02/28/2025 [facility] [address] [place] [address] Drive [address] [place] [address] XRay Report Signed Patient: Carolyn Kebede [facility]# : [id number] : 7Acct:[id number] Age/Sex: 70 / FADM Date: 02/27/25 Loc: KITTY Attending Dr: Ruslan TORRES Ordering Physician: Ruslan Escalera Date of Service: 02/27/25 Procedure(s): XR cervical spine 4V Accession Number(s): [id number] cc: Ruslan Escalera; Naomi Kim Reason for [...] 02/28/25 0729 DD/ 1326 TD/TT: 02/27/25 1334 District Administrative Assistant: [facility] External Provider IMG XR PROCEDURES Final Result * Hemoglobin A1c (11/27/2024 12:22 PM EDT) Hemoglobin A1c 5.8 <6.0 % [facility] Comment:Hemoglobin A1C Refer ence Range Adults: 4.8 - 6.0 % Non diabetic: < 6.0 % Goal: < 7.0 %Additional Action Suggested: > 8.0 %Note: Hemoglobin A1c results are invalid for patients with abnormal amounts of HbF. Blood transfusions may impact the HbA1c concentration in the patient sample. Estimated Average Glucose 120 mg/dL [facility] Comment:eAG = Estimated ave rage glucose which is %A1C expressed asaverage glucose, using the formula of the D4G-JkakmlcYgennqr Glucose study (ADAG), Diabetes Care, Vol.31,#8,Dec. 2007 Blood Venous blood specimen / Unknown 11/27/2024 12:22 PM EDT 11/27/2024 1:43 PM EDT us Naomi Kim MD LAB BLOOD ORDERABLES Final Res ult [facility] [address] [place] [phone] * BI Mammogram Screening Tomosynthesis Bilateral (11/20/2024 2:00 PM EDT) Anatomical Region Laterality Modality Breast Bilateral Mammography 11/20/2024 2:00 PM EDT Narrative 12/01/2024 9:51 PM EDT [address] [place] [address] Mammography Report Signed Patient: Carolyn Kebede I MR# : [id number] : 1955 Acct:[id number] Age/Sex: 69 / F ADM Date: 11/20/24 Loc: HO.MAMMO Attending Dr: Naomi Kim MD Ordering Physician: Naomi Kim Results: 1Negative Date of Service: 11/20/24 Follow Up: 1 Year From Orig ina Mammogram Procedure(s): MM tomosynthesis screening BI Accession Number(s): [id number] cc: Naomi Kim EXAMINATION: MM SCREENING DIGITAL [...] 12/01/24 2148 DD/ 1400 TD/TT: 11/20/24 1413 District Administrative Assistant: Procedure Note Donotuseinterpreter, Image - 12/01/2024 [facility] [address] [place] [address] Mammography Report Signed Patient: Carolyn Kebede IMR# : [id number] : 7Acct:[id number] Age/Sex: 69 / FADM Date: 11/20/24 Loc: HO.MAMMO Attending Dr: Naomi Kim MD Ordering Physician: Gonzalo Kimults: 1Negative Date of Service: 11/20/24Follow Up: 1 Year From Orig inal Mammogram Procedure(s): MM tomosynthesis screening BI Accession Number(s): [id number] cc: Naomi Kim EXAMINATION: MM SCREENING DIGITAL [...] 12/01/24 2148 DD/ 1400 TD/TT: 11/20/24 1413 District Administrative Assistant: us Naomi Kim MD IMG BI PROCEDURES Edited Resul t - Final * Pap Smear (03/17/2024 11:36 AM EDT) 03/17/2024 11:3 6 AM EDT 03/20/2024 8:30 AM EST [facility] - 03/22/2024 11:46 AM EST ----- ------- Name: Carolyn Kebede I Age/Sex: 69/F : 1955 Unit#: [id number] Attend Dr: Naomi Kim Re03/17/24 Status: [facility] REF Location: HO.HHCLNP Disch: ----- ------- SPEC : [id number] RECD: 03/20/24 STATUS: KATELYNN HERNANDEZ NUM: [id number] MAURO: 03/17/24-1136 [facility] DR: Naomi Kim ENTERED: 03/20/24-1028 SP TYPE: Pap Smr RATNA SAUNDERS: ORDERED: Pap Smear Interpretation Satisfactory for evaluation. Negative for intraepithelial lesion or malignancy. Atrophic. Mild inflammation. HPV High Risk: Negative HPV Genotyping 16: Negative HPV Genotyping 18: Negative Clinical Information LMP: Unknown date Previous PAP test: 2021, WNL Other history: No postmenopausal bleeding Material Received ThinPrep-Cervical ----- ------- Signed (signature on file) JOE Duron (ASCP) 03/22/24 1146 ----- ------- END OF REPORT Naomi Kim MD LAB CYTOLOGY ORDERABLES Final Result [facility] [address] [place] [phone] * (ABNORMAL) Lipid Panel, Standard (02/15/2023 11:51 AM EDT) Triglycerides 108 <150 mg/dL [facility] Comment:Desirable Triglyceri de: less than 150 mg/dLBorderline High Triglyceride 150-199 mg/dLHigh Triglyceride: 200-499 mg/dLVery High Triglyceride: greater than or equal to 5OO mg/dL Cholesterol 201(H) <200 mg/dL [facility] Comment:Desirable Cholestero l: less than 200 mg/dLBorderline High Cholesterol: 200-239 mg/dLHigh Cholesterol: greater than 239 mg/dL LDL Cholesterol Calculated 132(H) <100 mg/dL [facility] Comment:Desirable LDL: less than 100 mg/dLNear Optimal/Above Optimal LDL: 110- 129 mg/dLBorderline High LDL: 130-159 mg/dLHigh LDL: 160-189 mg/dLVery High LDL: greater than or equal to 190 mg/dL HDL Cholesterol 48 >40 mg/dL [facility] Comment:Desirable HDL: great er than 40 mg/dL Note: This HDL assay may give artificially low results in patients with liver disease. Blood Venous blood specimen / Unknown 02/15/2023 11:51 AM EDT 02/15/2023 1:18 PM EDT Naomi Kim MD LAB BLOOD ORDERABLES Final Res ult Performing Organization Address City/[facility]/ZIP Co de Phone Number [facility] [address] [place] [phone] * HPV mRNA E6/E7 REFLEX TO HPV 16, 18/45 (10/02/2020 10:16 AM EDT) HPV nRNA E6/E7 Not Detected Not Detected [facility] Comment: Methodology: Crystalizer-Mediated Amplification This assay detects E6/E7 viral messenger RNA (mRNA) from 14 high-risk HPV types (16,18,31,33,35,39,45,51,52,56,58,59,66,68). The analytical performance characteristics of this assay have been determined by [employer]. The modifications have not been cleared or approved by the FDA. This assay has been validated pursuant to the CLIA regulations and is used for clinical purposes. For additional information, please refer to http://education.[employer]AppliLog/faq/WRY131l0 (This link if provided for information/ educational purposes only.) 10/02/2020 10:1 6 AM EDT us Naomi Kim MD LAB CYTOLOGY ORDERABLES Final Result Performing Organization Address City/[facility]/ZIP Co de Phone Number [facility] [address] * HEPATITIS C AB W/REFL TO [...] a test for HCV RNA (test code 74785) is suggested. For additional information please refer to http://education.[employer]/faq/WKN99h1 (This link is being provided for informational/ educational purposes only.) 09/20/2020 3:34 PM EDT Naomi Kim MD HISTORICAL/NON ORDERABLE LABS Final Result Performing Organization Address [facility] de Phone Number [facility] [address] from Last 3 Months or Most Recently Relevant to Health Maintenance Insurance [facility] STANDARD [facility] DUAL COMPLETE Care Teams Superintendent Geophysical Laboratory Relationship Specialty Start Date End Date Naomi Kim MD [address] [place] [phone] PCP - General Family Medicine 08/26/20
--- OUTSIDE RECORDS SUMMARY | 2025-04-27 19:15 | XMS_ITS | Clinical Summary ---
Author Organization [facility] Address [address] [place] [phone] Phone Care Team Providers Care Cable Machine Operator Name Role Phone Naomi Kim MD Primary [...] Medical Devices Not on file Insurance [facility] MEDICARE REPLACEMENT MEDICARE PART A & B [facility] MEDICARE REPLACEMENT [place] [id number] MEDICARE PART A & B MEDICARE REPLACEMENT MEDICARE PART A & [place] [address] [place] [address] MEDICARE REPLACEMENT MEDICARE PART A & B [facility] MEDICARE REPLACEMENT MEDICARE PART A & B [facility] MEDICARE REPLACEMENT MEDICARE PART A & B Care Teams Cable Machine Operator Relationship Specialty Start Date End Date Naomi Kim MD [address] [place] [phone] PCP - General 10/03/24 Additional Source Comments The information contained in this document represents components of the legal health record. It is not the complete legal health record.[facility]
--- OUTSIDE RECORDS SUMMARY | 2025-04-27 19:15 | XMS_ITS | Encounter Summary ---
Author Organization [employer] [facility] Address [address] [place] [address] 7t [place] [address] Care Team Providers Care Supervisor Adult Education Name Role Phone Naomi Kim MD Primary Care Provider [phone] Encounter Details Date Type Department Care Team (Late st Contact Info) Description 12/02/2022 Orders Only [facility] [address] [place] [address] Kareen Ortiz LPN Social History Tobacco Use [...] Description 06/13/2025 9:45 AM EST Office Visit [facility] [address] [place] [phone] Naomi Kim MD [address] [place] [address] 07/23/2025 2:30 PM EDT Office Visit [facility] [address] [place] [address] Eliana Jiménez, OD [address] [place] [address] documented as of this encounter Visit Diagnoses Not on filedocumented in this encounter Care Teams Supervisor Adult Education Relationship Specialty Start Date End Date Naomi Kim MD [address] [place] [address] PCP - General Family Medicine 08/26/20 documented as of this encounter
--- OUTSIDE RECORDS SUMMARY | 2025-04-27 19:15 | XMS_ITS | Encounter Summary ---
Author Organization [facility] Address [address] [facility] 7t [place] [address] Care Team Providers Care Equipment Hire Manager Name Role Phone Naomi Kim MD Primary Care Provider [phone] Encounter Details Date Type Department Care Team (Latest Contact Info) Description 03/17/2021 Abstract [facility] CONVERSIONS Dental, Provider, DDS Social History [...] Description 06/13/2025 9:45 AM EST Office Visit [facility] [address] [place] [address] Naomi Kim MD [address] [place] [address] 07/23/2025 2:30 PM EDT Office Visit [facility] [address] [place] [address] Eliana Jiménez OD [address] [place] [address] documented as of this encounter Visit Diagnoses Not on filedocumented in this encounter Care Teams Equipment Hire Manager Relationship Specialty Start Date End Date Naomi Kim MD [address] [place] [address] PCP - General Family Medicine 08/26/20 documented as of this encounter
--- OUTSIDE RECORDS SUMMARY | 2025-04-27 19:15 | XMS_ITS | Encounter Summary ---
Author Organization [employer] Address [address] [facility] [address] 7t [place] [address] Care Team Providers Care Anglesmith Name Role Phone Naomi Kim MD Primary Care Provider [phone] Encounter Details Date Type Department Care Team ([facility] st Contact Info) Description 11/06/2024 Telephone [facility] [address] [place], [place] [phone] Naomi Kim MD [address] [place], [place] [phone] Social History Tobacco Use Types Packs/Day Years [...] Description 06/13/2025 9:45 AM EST Office Visit [facility] [address] [place] [address] Naomi Kim MD [address] [place] [address] 07/23/2025 2:30 PM EDT Office Visit [facility] [address] [place], [place] [phone] Eliana Jiménez, OD [address] [place] [address] documented as of this encounter Visit Diagnoses Not on filedocumented in this encounter Additional Health Concerns Assessment Noted Time PHQ-9 Depression Total Score: 0 10/28/19 25 1:18 PM EDT documented as of this encounter Care Teams Anglesmith Relationship Specialty Start Date End Date Naomi Kim MD [address] [place], [place] [phone] PCP - General Family Medicine 08/26/20 documented as of this encounter
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
--- OUTSIDE RECORDS SUMMARY | 2025-04-27 19:15 | XMS_ITS | Encounter Summary ---
Author Organization [employer] Address [address] [facility] [address] [place] [address] Care Team Providers Care Network Engineering Advisor Name Role Phone Naomi Kim MD Primary Care Provider [phone] Encounter Details Date Type Department Care Team (Late Contact Info) Description 11/10/2022 Orders Only [facility] [address] [place], [place] [phone] Shanice Navas LPN Social History Tobacco Use [...] 9:45 AM EST Office Visit [facility] [address] [place] [phone] Naomi Kim MD [address] [place] [phone] 07/23/2025 2:30 PM EDT Office Visit [facility] [address] [place] [address] Eliana Jiménez, OD [address] [place] [address] documented as of this encounter Visit Diagnoses Not on filedocumented in this encounter Care Teams Network Engineering Advisor Relationship Specialty Start Date End Date Naomi Kim MD [address] [place] [phone] PCP - General Family Medicine 08/26/20 documented as of this encounter
--- OUTSIDE RECORDS SUMMARY | 2025-04-27 19:15 | XMS_ITS | Encounter Summary ---
Author Organization [employer] Address [address] [place] [address] Care Team Providers Care Athletic Monitor Name Role Phone Naomi Kim MD Primary Care Provider [phone] Reason for Visit * Reason Comments Med Refill Encounter Details Date Type Department Care Team ([facility] st Contact Info) Description 04/23/2025 Refill [facility] [address] [place], [place] [phone] Naomi Kim MD [address] [place], [place] [phone] Social History Tobacco Use Types Packs/Day Years [...] 9:45 AM EST Office Visit [facility] [address] [place] [address] Naomi Kim MD [address] [place] [address] 07/23/2025 2:30 PM EDT Office Visit [facility] [address] [place] [address] Eliana Jiménez, OD [address] [place] [address] documented as of this encounter Visit Diagnoses Not on filedocumented in this encounter Additional Health Concerns Assessment Noted Time PHQ-9 Depression Total Score: 10 025 10:15 AM EDT documented as of this encounter Care Teams Athletic Monitor Relationship Specialty Start Date End Date Naomi Kim MD [address] [place] [address] PCP - General Family Medicine 08/26/20 documented as of this encounter
== END 2025-04-27 15:38 | disposition home or self-care (01) ==
LOC: HO.HNS 13:48
PROVIDERS: PCP General Practice; Visit Provider Physician Assistant
DX: M50.90 Cervical disc disorder, unspecified, unspecified cervical region (principal)
CPT/HCPCS: 99213

== ENCOUNTER → 2025-04-27 13:47 | Outpatient (BNVA) | payer OTHER, SELFPAY | PROVIDERS: PCP General Practice; Visit Provider Physician Assistant | DX: M50.90 Cervical disc disorder, unspecified, unspecified cervical region (principal) | CPT/HCPCS: 99212 ==

== ENCOUNTER 2025-05-04 10:40 | Outpatient (AMB) | payer OTHER, SELFPAY ==
--- NOTE | 2025-05-04 11:04 | HO.SPINEOV ---
Intake Visit Reasons: discuss surgical plan Intake Note: Ms. Sanjay Grace is here today to Discuss Surgical plan. Associate Partner Required: Yes Associate Partner Language: Manager Of Allied Health Services Services: Associate Partner Present Associate Partner Name: Radha Valentin LM Allergies No Known Allergies Allergy (Verified 05/04/25 11:20) Assessment & Plan Assessment & Plan (1) Cervical disc disorder: Code(s): M50.90 - Cervical disc disorder, unspecified, unspecified cervical region Category: Medical Plan Mrs Grace came back in today with her daughter to sit down and go over her procedure again. Her daughter speaks Hungarian and was able to interpret for me. We reviewed the procedure again as outlined in my previous note, which would be 3 stages including, anterior approach with cage insertion at C3-4, C4-5 C5-6, then flipping the patient to do posterolateral mass screws from C3-C6 to pull the patient back into alignment. We would then close the posterior cervical wound, put her back into a supine position reopen the anterior incision and put a plate from C3-C6. We reviewed all pertinent risks, benefits, I reviewed the procedure at length including recovery with her and her daughter. 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 The patient will need be in the hospital for at least a few days. We do not think she will need an ICU stay. We will still need to obtain the noncontrast CT to make sure her bones will be strong enough for the hardware. Once that is completed I will see her back again with her daughter on a day Dr. Dillon is here and we can review the procedure again. The patient was given risk and benefits of surgery including but not limited to infection, hematoma, nerve injury, durotomy, weakness, persistent pain. We discussed that if undergoing anterior cervical fusion there may be trachea or esophageal injury, hoarseness, or difficulty swallowing. There is a risk of pseudoarthrosis or instrumentation failure if undergoing cervical fusion. . All questions were answered to the best of our ability. If there is anything about this patient's medical history that we have overlooked or concerns you have about us proceeding with surgery we would appreciate any input you can offer. Total amount of time spent in this visit was 20 minutes in discussion of symptoms, cervical imaging results and subsequent plan of care Ruslan Dillon MD,PhD [facility] Coding Level of Care Code Est Pt Level 3 (99394) Diagnoses Cervical disc disorder M50.90
--- OUTSIDE RECORDS SUMMARY | 2025-05-04 12:22 | XMS_ITS | Clinical Summary ---
Author Organization [employer] Address [address] 7t [place] [address] Care Team Providers Care Auto Engine Mechanic Name Role Phone Naomi Kim MD Primary Care Provider [phone] Allergies No known active allergies Medications * [...] 02/05/2025 Postmenopausal status 02/05/2025 Post-traumatic stress 02/05/2025 Dalbo neck deformity of cervical spine 12/30/2024 Overview [...] time Will refer to ENT for potenital HOSE STRIPPER scope and to rule out mechanical nasal [...] Type Department Care Team Description 04/23/2025 Refill [facility] MEDICINE [address] [place] [address] Naomi Kim MD 04/20/2025 Orders Only [facility] External Provider, [facility] 04/16/2025 Travel 03/01/2025 Telephone [facility] MEDICINE [address] [place] [address] Naomi Kim MD Durable Medical Equipment 02/27/2025 Orders Only [facility] External Provider, [facility] 02/26/2025 3:15 PM EDT Office Visit [facility] OPTOMETRY [address] [place] [address] Tarka, Eliana, OD Dry eyes, bilateral (Primary Dx); Presbyopia; Retinal hemorrhage, right 02/26/2025 Travel 02/20/2025 Travel 02/07/2025 Telephone [facility] MEDICINE [address] [place] [address] Naomi Kim MD Durable Medical Equipment ([facility] DME: Hand Held Shower Head.) 02/02/2025 11:30 AM EDT Office Visit [facility] MEDICINE [address] [place] [address] Naomi Kim MD Swan neck deformity of [...] Description 06/13/2025 9:45 AM EST Office Visit [facility] MEDICINE [address] [place] [address] Naomi Kim MD [address] [place] [address] 07/23/2025 2:30 PM EDT Office Visit [facility] OPTOMETRY [address] [place] [address] Eliana Jiménez, OD [address] [place] [address] Health Maintenance Due Date Last Done Comments [...] PM EST Narrative 04/23/2025 9:03 AM EST [address] [address] Magnetic Resonance Report Signed Patient: Carolyn Kebede I MR# : [id number] : 1955 Acct:[id number] Age/Sex: 70 / F ADM Date: 04/20/25 Loc: HO.MRI Attending Dr: Ruslan TORRES Ordering Physician: Ruslan Escalera Date of Service: 04/20/25 Procedure(s): MR cervical spine wo con Accession Number(s): [id number] cc: Ruslan Escalera; [place] Reason for Exam: M50.90 - Cervical disc [...] 04/23/25 0900 DD/ 1745 TD/TT: 04/20/25 1803 Field Artillery Basic: Procedure Note Donotuseinterpreter, Image - 04/23/2025 [place] [address] Magnetic Resonance Report Signed Patient: Carolyn Kebede [facility]# : [id number] : 1955cct:[id number] Age/Sex: 70 / FADM Date: 04/20/25 Loc: HO.MRI Attending Dr: Ruslan TORRES Ordering Physician: Ruslan Escalera Date of Service: 04/20/25 Procedure(s): MR cervical spine wo con Accession Number(s): [id number] cc: Ruslan Escalera; Naomi Kim Reason for [...] by: Ian Boyer MD 04/23/2025 09:00 AM [facility] Dictated By: Ian Boyer MD Signed By: <Electronically signed by Ian Boyer MD in OV> 04/23/25 0900 DD/ 1745 TD/TT: 04/20/25 1803 Field Artillery Basic: [facility] External Provider IMG MRI PROCEDURES Edited Result - Final * XR CERVICAL SPINE 4V (02/27/2025 1:26 PM EDT) Anatomical Region Laterality Modality Abdomen Radiographic Svetlana ging 02/27/2025 1:26 PM EDT Narrative 02/28/2025 7:32 AM EDT [facility] [address] [place] [address] Drive [address] [place] [address] XRay Report Signed Patient: Carolyn Kebede I MR# : [id number] : 1955 Acct:[id number] Age/Sex: 70 / F ADM Date: 02/27/25 Loc: KITTY Attending Dr: Ruslan TORRES Ordering Physician: Ruslan Escalera Date of Service: 02/27/25 Procedure(s): XR cervical spine 4V Accession Number(s): [id number] cc: Ruslan Escalera; Naomi Kim Reason for [...] 02/28/25 0729 DD/ 1326 TD/TT: 02/27/25 1334 Field Artillery Basic: Procedure Note Donotuseinterpreter, Image - 02/28/2025 [facility] [address] [place] [address] Drive [address] [place] [address] XRay Report Signed Patient: Carolyn Kebede [facility]# : [id number] : 7Acct:[id number] Age/Sex: 70 / FADM Date: 02/27/25 Loc: KITTY Attending Dr: Ruslan TORRES Ordering Physician: Ruslan Escalera Date of Service: 02/27/25 Procedure(s): XR cervical spine 4V Accession Number(s): [id number] cc: Ruslan Escalera; Naomi Kim Reason for [...] 02/28/25 0729 DD/ 1326 TD/TT: 02/27/25 1334 Field Artillery Basic: [facility] External Provider IMG XR PROCEDURES Final Result * Hemoglobin A1c (11/27/2024 12:22 PM EDT) Hemoglobin A1c 5.8 <6.0 % [facility] Comment:Hemoglobin A1C Refer ence Range Adults: 4.8 - 6.0 % Non diabetic: < 6.0 % Goal: < 7.0 %Additional Action Suggested: > 8.0 %Note: Hemoglobin A1c results are invalid for patients with abnormal amounts of HbF. Blood transfusions may impact the HbA1c concentration in the patient sample. Estimated Average Glucose 120 mg/dL [facility] Comment:eAG = Estimated ave rage glucose which is %A1C expressed asaverage glucose, using the formula of the C4O-NjxoibaZxtxzzq Glucose study (ADAG), Diabetes Care, Vol.31,#8,Dec. 2007 Blood Venous blood specimen / Unknown 11/27/2024 12:22 PM EDT 11/27/2024 1:43 PM EDT us Naomi Kim MD LAB BLOOD ORDERABLES Final Res ult [facility] [address] [place] [phone] * BI Mammogram Screening Tomosynthesis Bilateral (11/20/2024 2:00 PM EDT) Anatomical Region Laterality Modality Breast Bilateral Mammography 11/20/2024 2:00 PM EDT Narrative 12/01/2024 9:51 PM EDT [address] [place] [address] Mammography Report Signed Patient: Carolyn Kebede I MR# : [id number] : 1955 Acct:[id number] Age/Sex: 69 / F ADM Date: 11/20/24 Loc: HO.MAMMO Attending Dr: Naomi Kim MD Ordering Physician: Naomi Kim Results: 1Negative Date of Service: 11/20/24 Follow Up: 1 Year From Orig ina Mammogram Procedure(s): MM tomosynthesis screening BI Accession Number(s): [id number] cc: Naomi Kim EXAMINATION: MM SCREENING DIGITAL [...] 12/01/24 2148 DD/ 1400 TD/TT: 11/20/24 1413 Field Artillery Basic: Procedure Note Donotuseinterpreter, Image - 12/01/2024 [facility] [address] [place] [address] Mammography Report Signed Patient: Carolyn Kebede IMR# : [id number] : 7Acct:[id number] Age/Sex: 69 / FADM Date: 11/20/24 Loc: HO.MAMMO Attending Dr: Naomi Kim MD Ordering Physician: Gonzalo Kimults: 1Negative Date of Service: 11/20/24Follow Up: 1 Year From Orig inal Mammogram Procedure(s): MM tomosynthesis screening BI Accession Number(s): [id number] cc: Naomi Kim EXAMINATION: MM SCREENING DIGITAL [...] 12/01/24 2148 DD/ 1400 TD/TT: 11/20/24 1413 Field Artillery Basic: us Naomi Kim MD IMG BI PROCEDURES Edited Resul t - Final * Pap Smear (03/17/2024 11:36 AM EDT) 03/17/2024 11:3 6 AM EDT 03/20/2024 8:30 AM EST [facility] - 03/22/2024 11:46 AM EST ----- ------- Name: Carolyn Kebede I Age/Sex: 69/F : 1955 Unit#: [id number] Attend Dr: Naomi Kim Re03/17/24 Status: [facility] REF Location: HO.HHCLNP Disch: ----- ------- SPEC : [id number] RECD: 03/20/24 STATUS: KATELYNN HERNANDEZ NUM: [id number] MAURO: 03/17/24-[address] [facility] [address]: Naomi Kim ENTERED: 03/20/24-1028 SP [...] Kim MD LAB CYTOLOGY ORDERABLES Final Result [facility] [address] [place] [phone] * (ABNORMAL) Lipid Panel, Standard (02/15/2023 11:51 AM EDT) Triglycerides 108 <150 mg/dL [facility] Comment:Desirable Triglyceri de: less than 150 mg/dLBorderline High Triglyceride 150-199 mg/dLHigh Triglyceride: 200-499 mg/dLVery High Triglyceride: greater than or equal to 5OO mg/dL Cholesterol 201(H) <200 mg/dL [facility] Comment:Desirable Cholestero l: less than 200 mg/dLBorderline High Cholesterol: 200-239 mg/dLHigh Cholesterol: greater than 239 mg/dL LDL Cholesterol Calculated 132(H) <100 mg/dL [facility] Comment:Desirable LDL: less than 100 mg/dLNear Optimal/Above Optimal LDL: 110- 129 mg/dLBorderline High LDL: 130-159 mg/dLHigh LDL: 160-189 mg/dLVery High LDL: greater than or equal to 190 mg/dL HDL Cholesterol 48 >40 mg/dL [facility] Comment:Desirable HDL: great er than 40 mg/dL Note: This HDL assay may give artificially low results in patients with liver disease. Blood Venous blood specimen / Unknown 02/15/2023 11:51 AM EDT 02/15/2023 1:18 PM EDT Naomi Kim MD LAB BLOOD ORDERABLES Final Res ult Performing Organization Address City/[facility]/ZIP Co de Phone Number [facility] [address] [place] [phone] * HPV mRNA E6/E7 REFLEX TO HPV 16, 18/45 (10/02/2020 10:16 AM EDT) HPV nRNA E6/E7 Not Detected Not Detected [facility] Comment: Methodology: Asbestos Remover-Mediated Amplification This assay detects E6/E7 viral messenger RNA (mRNA) from 14 high-risk HPV types (16,18,31,33,35,39,45,51,52,56,58,59,66,68). The analytical performance characteristics of this assay have been determined by [employer]. The modifications have not been cleared or approved by the FDA. This assay has been validated pursuant to the CLIA regulations and is used for clinical purposes. For additional information, please refer to http://education.MOOI.[employer]/faq/NBT238d6 (This link if provided for information/ educational purposes only.) 10/02/2020 10:1 6 AM EDT us Naomi Kim MD LAB CYTOLOGY ORDERABLES Final Result Performing Organization Address City/[facility]/ZIP Co de Phone Number [facility] [address] * HEPATITIS C AB W/REFL TO HCV RNA, QN, PCR (09/20/2020 3:34 PM EDT) HEPATITIS C ANTIBODY NON-REACT [facility] NON-REACT [facility] INDEX 0.01 <1.00 [facility] Comment: HCV antibody was non-reactive. There is no laboratory evidence of HCV infection. In most cases, no further action is required. However, if recent HCV exposure is suspected, a test for HCV RNA (test code 81421) is suggested. For additional information please refer to http://education.[employer]/faq/VYB76c2 (This link is being provided for informational/ educational purposes only.) 09/20/2020 3:34 PM EDT Naomi Kim MD HISTORICAL/NON ORDERABLE LABS Final Result Performing Organization Address [facility] de Phone Number [facility] [address] from Last 3 Months or Most Recently Relevant to Health Maintenance Insurance [facility] STANDARD [facility] DUAL COMPLETE Care Teams Auto Engine Mechanic Relationship Specialty Start Date End Date Naomi Kim MD [address] [place] [phone] PCP - General Family Medicine 08/26/20
--- OUTSIDE RECORDS SUMMARY | 2025-05-04 12:22 | XMS_ITS | Encounter Summary ---
Author Organization [employer] Address [address] [facility] 7t [place] [address] Care Team Providers Care Twister Operator Name Role Phone Naomi Kim MD Primary Care Provider [phone] Encounter Details Date Type Department Care Team ([facility] st Contact Info) Description 11/06/2024 Telephone [facility] MEDICINE [address] [place], [place] [phone] Naomi Kim MD [address] [place], [place] [phone] Social History Tobacco Use Types Packs/Day Years [...] Description 06/13/2025 9:45 AM EST Office Visit [facility] MEDICINE [address] [place] [address] Naomi Kim MD [address] [place] [address] 07/23/2025 2:30 PM EDT Office Visit [facility] OPTOMETRY [address] [place], [place] [phone] Eliana Jiménez, OD [address] [place] [address] documented as of this encounter Visit Diagnoses Not on filedocumented in this encounter Additional Health Concerns Assessment Noted Time PHQ-9 Depression Total Score: 0 10/28/19 25 1:18 PM EDT documented as of this encounter Care Teams Twister Operator Relationship Specialty Start Date End Date Naomi Kim MD [address] [place], [place] [phone] PCP - General Family Medicine 08/26/20 documented as of this encounter
--- OUTSIDE RECORDS SUMMARY | 2025-05-04 12:23 | XMS_ITS | Encounter Summary ---
Author Organization [employer] [facility] Address [address] [place] [address] 7t [place] [address] Care Team Providers Care Clock Assembler Name Role Phone Naomi Kim MD Primary Care Provider [phone] Encounter Details Date Type Department Care Team (Late st Contact Info) Description 12/02/2022 Orders Only [facility] MEDICINE [address] [place] [phone] Kareen Ortiz LPN Social History Tobacco Use [...] Description 06/13/2025 9:45 AM EST Office Visit [facility] MEDICINE [address] [place] [address] Naomi Kim MD [address] [place] [address] 07/23/2025 2:30 PM EDT Office Visit [facility] OPTOMETRY [address] [place] [address] Eliana Jiménez, OD [address] [place] [address] documented as of this encounter Visit Diagnoses Not on filedocumented in this encounter Care Teams Clock Assembler Relationship Specialty Start Date End Date Naomi Kim MD [address] [place] [address] PCP - General Family Medicine 08/26/20 documented as of this encounter
--- OUTSIDE RECORDS SUMMARY | 2025-05-04 12:23 | XMS_ITS | Clinical Summary ---
Author Organization [facility] Address [address] [place] [address] Phone Care Team Providers Care Booster Pump Operator Name Role Phone Naomi Kim MD [...] topic Medical Devices Not on file Insurance [facility] MEDICARE REPLACEMENT MEDICARE PART A & B [facility] MEDICARE REPLACEMENT [place] [id number] MEDICARE PART A & B MEDICARE REPLACEMENT MEDICARE PART A & [place] [address] [place] [address] MEDICARE REPLACEMENT MEDICARE PART A & B [facility] MEDICARE REPLACEMENT MEDICARE PART A & B [facility] MEDICARE REPLACEMENT MEDICARE PART A & B Care Teams Booster Pump Operator Relationship Specialty Start Date End Date Naomi Kim MD [address] [place] [address] PCP - General 10/03/24 Additional Source Comments The information contained in this document represents components of the legal health record. It is not the complete legal health record.[facility]
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
--- OUTSIDE RECORDS SUMMARY | 2025-05-04 12:23 | XMS_ITS | Encounter Summary ---
Author Organization [employer] Address [address] [facility] [address] [facility] [address] 7[address] [place] [address] Care Team Providers Care Clock Repair Technician Name Role Phone Naomi Kim MD Primary Care Provider [phone] Encounter Details Date Type Department Care Team (Late Contact Info) Description 11/10/2022 Orders Only [facility] MED & PEDS [address] [place], [place] [phone] Shanice Navas LPN Social History Tobacco Use [...] AM EST Office Visit [facility] MEDICINE [address] [place] [phone] Naomi Kim MD [address] [place] [phone] 07/23/2025 2:30 PM EDT Office Visit [facility] OPTOMETRY [address] [place] [address] Eliana Jiménez, OD [address] [place] [address] documented as of this encounter Visit Diagnoses Not on filedocumented in this encounter Care Teams Clock Repair Technician Relationship Specialty Start Date End Date Naomi Kim MD [address] [place] [phone] PCP - General Family Medicine 08/26/20 documented as of this encounter
--- OUTSIDE RECORDS SUMMARY | 2025-05-04 12:23 | XMS_ITS | Encounter Summary ---
Author Organization [employer] [facility] Address [address] [facility] 7t [place] [address] Care Team Providers Care District Court Justice Name Role Phone Naomi Kim MD Primary Care Provider [phone] Encounter Details Date Type Department Care Team (Latest Contact Info) Description 03/17/2021 Abstract [facility] CONVERSIONS Dental, Provider, DDS Social [...] Description 06/13/2025 9:45 AM EST Office Visit [facility] MEDICINE [address] [place] [address] Naomi Kim MD [address] [place] [address] 07/23/2025 2:30 PM EDT Office Visit [facility] OPTOMETRY [address] [place] [address] Eliana Jiménez OD [address] [place] [address] documented as of this encounter Visit Diagnoses Not on filedocumented in this encounter Care Teams District Court Justice Relationship Specialty Start Date End Date Naomi Kim MD [address] [place] [address] PCP - General Family Medicine 08/26/20 documented as of this encounter
== END 2025-05-04 12:07 | disposition home or self-care (01) ==
LOC: HO.HNS 10:40
PROVIDERS: PCP General Practice; Visit Provider Physician Assistant
DX: M50.90 Cervical disc disorder, unspecified, unspecified cervical region (principal)
CPT/HCPCS: 99213

== ENCOUNTER → 2025-05-04 10:40 | Outpatient (BNVA) | payer OTHER, SELFPAY | PROVIDERS: PCP General Practice; Visit Provider Physician Assistant | DX: M50.90 Cervical disc disorder, unspecified, unspecified cervical region (principal) | CPT/HCPCS: 99212 ==

== ENCOUNTER 2025-05-15 13:20 | Outpatient (REF) | payer OTHER, SELFPAY ==
--- NOTE | ~2025-05-15 | MM_ITS ---
EXAMINATION: DXA BONE DENSITY AXIAL HISTORY: routine screening TECHNIQUE: enercast Dual energy absorptiometry (DEXA) of the lumbar spine, total left hip, and femoral neck was performed. COMPARISON: There are no prior studies for comparison. FINDINGS: The bone mineral density of the lumbar spine is 0.817 g/cm2, corresponding to a T-score of -2.9, and a Z-score of -1.3. This is indicative of osteoporosis. The bone mineral density of the left total hip is 0.831 g/cm2, corresponding to a T-score of -1.4, and a Z-score of -0.1. This is indicative of osteopenia. The bone mineral density of the left femoral neck is 0.797 g/cm2, corresponding to a T-score of -1.7, and a Z-score of -0.1. This is indicative of osteopenia. FRACTURE RISK: The FRAX index suggests a risk of major osteoporotic fracture of 5.9%, and of hip fracture 0.9%. MM/XR DEXA axial skeleton IMPRESSION: Based on bone mineral density, and according to World Health Organization (WHO) criteria, the diagnosis is consistent with osteoporosis. Statistically, 68% of repeat scans fall within 1 SD (+/- 0.010 g/cm2 for AP spine L1-L4) and 1 SD (+/- 0.012 g/cm2 for femur total) FRAX is a trademark of the [employer] [employer] [employer], a World Health Organization (WHO) Collaborating Center. Electronically signed by: Richard Beach MD 05/15/2025 01:[address] [facility]
--- OUTSIDE RECORDS SUMMARY | 2025-05-15 17:15 | XMS_ITS | Clinical Summary ---
Author Organization [facility] Address [address] [place] [address] Phone Care Team Providers Care Real Estate Inspector Name Role Phone Naomi Kim MD Primary [...] & B [facility] MEDICARE REPLACEMENT [place] [id number] MEDICARE PART A & B MEDICARE REPLACEMENT MEDICARE PART A & [place] [place] [address] MEDICARE REPLACEMENT MEDICARE PART A & B [facility] MEDICARE REPLACEMENT MEDICARE PART A & B [facility] MEDICARE REPLACEMENT MEDICARE PART A & B Care Teams Real Estate Inspector Relationship Specialty Start Date End Date Naomi Kim MD [address] [place] [phone] PCP - General 10/03/24 Additional Source Comments The information contained in this document represents components of the legal health record. It is not the complete legal health record.[facility]
--- OUTSIDE RECORDS SUMMARY | 2025-05-15 17:15 | XMS_ITS | Encounter Summary ---
Author Organization [employer] Address [address] [place] [address] Care Team Providers Care Proposal Lead Writer Name Role Phone Naomi Kim MD Primary Care Provider [phone] Encounter Details Date Type Department Care Team ([facility] st Contact Info) Description 11/06/2024 Telephone [facility] [address] [place], [place] [phone] Naomi Kim MD [address] [place], [place] [phone] Social History Tobacco Use Types Packs/Day Years [...] Description 06/13/2025 9:45 AM EST Office Visit [facility] [address] [place] [address] Naomi Kim MD [address] [place] [address] 07/23/2025 2:30 PM EDT Office Visit [facility] [address] [place], [place] [phone] Eliana Jiménez, OD [address] [place] [address] documented as of this encounter Visit Diagnoses Not on filedocumented in this encounter Additional Health Concerns Assessment Noted Time PHQ-9 Depression Total Score: 0 10/28/19 25 1:18 PM EDT documented as of this encounter Care Teams Proposal Lead Writer Relationship Specialty Start Date End Date Naomi Kim MD [address] [place], [place] [phone] PCP - General Family Medicine 08/26/20 documented as of this encounter
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
--- OUTSIDE RECORDS SUMMARY | 2025-05-15 17:15 | XMS_ITS | Encounter Summary ---
Author Organization [employer] Address [address] 7t [place] [address] Care Team Providers Care Hand Mexican Food Maker Name Role Phone Naomi Kim MD Primary Care Provider [phone] Encounter Details Date Type Department Care Team (Late Contact Info) Description 11/10/2022 Orders Only [facility] MED & PEDS [address] [place], [place] [phone] Shanice Navas LPN Social History Tobacco Use [...] AM EST Office Visit [facility] MEDICINE [address] [place] [address] [phone] Naomi Kim MD [address] [place] [phone] 07/23/2025 2:30 PM EDT Office Visit [facility] OPTOMETRY [address] [place] [address] Eliana Jiménez, OD [address] [place] [address] documented as of this encounter Visit Diagnoses Not on filedocumented in this encounter Care Teams Hand Mexican Food Maker Relationship Specialty Start Date End Date Naomi Kim MD [address] [place] [address] PCP - General Family Medicine 08/26/20 documented as of this encounter
--- OUTSIDE RECORDS SUMMARY | 2025-05-15 17:15 | XMS_ITS | Encounter Summary ---
Author Organization [employer] Address [address] [facility] 7t [place] [address] Care Team Providers Care River Tester Name Role Phone Naomi Kim MD Primary Care Provider [phone] Encounter Details Date Type Department Care Team (Latest Contact Info) Description 03/17/2021 Abstract [facility] CONVERSIONS Dental, Provider, DDS Social History Tobacco [...] 9:45 AM EST Office Visit [facility] MEDICINE [address] [place] [address] Naomi Kim MD [address] [place] [address] 07/23/2025 2:30 PM EDT Office Visit [facility] OPTOMETRY [address] [place] [address] Eliana Jiménez OD [address] [place] [address] documented as of this encounter Visit Diagnoses Not on filedocumented in this encounter Care Teams River Tester Relationship Specialty Start Date End Date Naomi Kim MD 230 [place] [address] PCP - General Family Medicine 08/26/20 documented as of this encounter
--- OUTSIDE RECORDS SUMMARY | 2025-05-15 17:15 | XMS_ITS | Encounter Summary ---
Author Organization [employer] [facility] Address [address] [place] [address] 7t [place] [address] Care Team Providers Care Wood Casket Maker Name Role Phone Naomi Kim MD Primary Care Provider [phone] Encounter Details Date Type Department Care Team (Late st Contact Info) Description 12/02/2022 Orders Only [facility] MEDICINE [address] [place] [address] Kareen Ortiz LPN Social History Tobacco Use [...] Description 06/13/2025 9:45 AM EST Office Visit [facility] [address] [place] [address] Naomi Kim MD [address] [place] [address] 07/23/2025 2:30 PM EDT Office Visit [facility] OPTOMETRY [address] [place] [address] Eliana Jiménez, OD [address] [place] [address] documented as of this encounter Visit Diagnoses Not on filedocumented in this encounter Care Teams Wood Casket Maker Relationship Specialty Start Date End Date Naomi Kim MD [address] [place] [address] PCP - General Family Medicine 08/26/20 documented as of this encounter
--- OUTSIDE RECORDS SUMMARY | 2025-05-15 17:15 | XMS_ITS ---
Author Name Naty MALLOY MRS. Lopez Address [address] [place] [address] Phone [phone] [facility] Care Team Providers Care Direct Care Staffer Name Role Phone Jessica Alfonso Unavailable [phone] Naomi Kim Unavailable [phone] [facility] Unavailable Reason for Referral Not [...] tive Time Current Smoking Status Never smoker 2025-04-18 0 Sex Female Gender identity Woman History of Procedures Procedures Service Procedure code Service date Servicing provider Phone# New patient 15-29min; 1 minor problem; add modifier 95 for video, modifier 93 for phone 22006 2024-11-23 No Data Available No Data Availa [...] Do you have a Durable Power of Betting Clerk for Healthcare, or Healthcare Proxy Or Guardianship? [...]
--- OUTSIDE RECORDS SUMMARY | 2025-05-15 17:15 | XMS_ITS | Clinical Summary ---
Author Organization [employer] Address [address] [facility] 7t [place] [address] Care Team Providers Care Major League Baseball Player Name Role Phone Naomi Kim MD Primary Care Provider [phone] Allergies No known active allergies Medications * [...] 02/05/2025 Postmenopausal status 02/05/2025 Post-traumatic stress 02/05/2025 [place] neck deformity of cervical spine 12/30/2024 Overview [...] time Will refer to ENT for potenital MATERIAL PLANNING ANALYST scope and to rule out mechanical nasal [...] Type Department Care Team Description 04/23/2025 Refill [facility] [address] [place] [address] Naomi Kim MD 04/20/2025 Orders Only [facility] External Provider, [facility] 04/16/2025 Travel 03/01/2025 Telephone [facility] [address] [place] [address] Naomi Kim MD Durable Medical Equipment 02/27/2025 Orders Only [facility] External Provider, [facility] 02/26/2025 3:15 PM EDT Office Visit [facility] OPTOMETRY [address] [place] [address] TarEliana jang, OD Dry eyes, bilateral (Primary Dx); Presbyopia; Retinal hemorrhage, right 02/26/2025 Travel 02/20/2025 Travel from Last 3 Months Immunizations Immunization [...] Description 06/13/2025 9:45 AM EST Office Visit [facility] [address] [place] [address] Naomi Kim MD 230 [place] [address] 07/23/2025 2:30 PM EDT Office Visit [facility] OPTOMETRY [address] [place] [address] Elinaa Jiménez, OD [address] [place] [address] Health Maintenance Due Date Last Done Comments [...] Procedure Name Priority Date/Time Associated Diagnosis Comments BD DEXA AXIAL Routine 05/15/2025 1:45 PM EST Postmenopausal status MR CERVICAL SPINE WO CONTRAST Routine 04/20/2025 [...] Recently Relevant to Health Maintenance Results * BD DEXA Axial (05/15/2025 1:45 PM EST) Anatomical Region Laterality Modality Body Radiographic Svetlana ging 05/15/2025 1:45 PM EST Narrative 05/15/2025 1:58 PM EST [facility] [address] [place] [address] Mammography Report Signed Patient: Carolyn Kebede I MR# : [id number] : 1955 Acct:[id number] Age/Sex: 70 / F ADM Date: 05/15/25 Loc: HO.MAMMO Attending Dr: Naomi Kim MD Ordering Physician: Naomi Kim Results: Date of Service: 05/15/25 Follow Up: Procedure(s): XR DEXA axial skeleton Accession Number(s): [id number] cc: Naomi Kim Reason For Exam: routine screening EXAMINATION: DXA BONE DENSITY AXIAL HISTORY: routine screening TECHNIQUE: [employer] Dual energy absorptiometry (DEXA) of the lumbar spine, total left hip, and femoral neck was performed. COMPARISON: There are no prior studies for comparison. FINDINGS: The bone mineral density of the lumbar spine is 0.817 g/cm2, corresponding to a T-score of -2.9, and a Z-score of -1.3. This is indicative of osteoporosis. The bone mineral density of the left total hip is 0.831 g/cm2, corresponding to a T-score of -1.4, and a Z-score of -0.1. This is indicative of osteopenia. The bone mineral density of the left femoral neck is 0.797 g/cm2, corresponding to a T-score of -1.7, and a Z-score of -0.1. This is indicative of osteopenia. FRACTURE RISK: The FRAX index suggests a risk of major osteoporotic fracture of 5.9%, and of hip fracture 0.9%. MM/XR DEXA axial skeleton IMPRESSION: Based on bone mineral density, and according to World Health Organization (WHO) criteria, the diagnosis is consistent with osteoporosis. Statistically, 68% of repeat scans fall within 1 SD (+/- 0.010 g/cm2 for AP spine L1-L4) and 1 SD (+/- 0.012 g/cm2 for femur total) FRAX is a trademark of the [employer]'s [place] for Metabolic Bone Disease, a World Health Organization (WHO) Collaborating Center. Electronically signed by: Richard Beach MD 05/15/2025 01:55 PM [facility] Dictated By: Richard Beach MD Signed By: <Electronically signed by Richard Beach MD in OV> 05/15/25 1355 DD/ 1345 TD/TT: 05/15/25 1340 Barrel Bridge Assembler: Procedure Note Donotuseinterpreter, Image - 05/15/2025 [facility] [address] [place], [place] [address] Mammography Report Signed Patient: Carolyn Kebede [facility]# : [id number] : 1955cct:[id number] Age/Sex: 70 / FADM Date: 05/15/25 Loc: ALFREDO Attending Dr: Naomi Kim MD Ordering Physician: Gonzalo Kimults: Date of Service: 05/15/25Follow Up: Procedure(s): XR DEXA axial skeleton Accession Number(s): [id number] cc: Naomi Kim Reason For Exam: routine screening EXAMINATION: DXA BONE DENSITY AXIAL HISTORY: routine screening TECHNIQUE: [employer] Dual energy absorptiometry (DEXA) of the lumbar spine, total left hip, and femoral neck was performed. COMPARISON: There are no prior studies for comparison. FINDINGS: The bone mineral density of the lumbar spine is 0.817 g/cm2, corresponding to a T-score of -2.9, and a Z-score of -1.3. This is indicative of osteoporosis. The bone mineral density of the left total hip is 0.831 g/cm2, corresponding to a T-score of -1.4, and a Z-score of -0.1. This is indicative of osteopenia. The bone mineral density of the left femoral neck is 0.797 g/cm2, corresponding to a T-score of -1.7, and a Z-score of -0.1. This is indicative of osteopenia. FRACTURE RISK: The FRAX index suggests a risk of major osteoporotic fracture of 5.9%, and of hip fracture 0.9%. MM/XR DEXA axial skeleton IMPRESSION: Based on bone mineral density, and according to World Health Organization (WHO) criteria, the diagnosis is consistent with osteoporosis. Statistically, 68% of repeat scans fall within 1 SD (+/- 0.010 g/cm2 for AP spine L1-L4) and 1 SD (+/- 0.012 g/cm2 for femur total) FRAX is a trademark of the [employer] [place] for Metabolic Bone Disease, a World Health Organization (WHO) Collaborating Center. Electronically signed by: Richard Beach MD 05/15/2025 01:55 PM [facility] Dictated By: Richard Beach MD Signed By: <Electronically signed by Richrad Beach MD in OV> 05/15/25 1355 DD/ 1345 TD/TT: 05/15/25 1340 Barrel Bridge Assembler: Naomi Kim MD IMG DXA PROCEDURES Final Resul t * MR Cervical Spine w/o Contrast (04/20/2025 5:45 PM EST) Anatomical Region Laterality Modality Spine, C-spine Magnetic Resonan ce 04/20/2025 5:45 PM EST Narrative 04/23/2025 9:03 AM EST [address] [address] Magnetic Resonance Report Signed Patient: Carolyn Kebede I MR# : [id number] : 1955 Acct:[id number] Age/Sex: 70 / F ADM Date: 04/20/25 Loc: HO.MRI Attending Dr: Ruslan TORRES Ordering Physician: Ruslan Escalera Date of Service: 04/20/25 Procedure(s): MR cervical spine wo con Accession Number(s): [id number] cc: Ruslan Escalera; Naomi Kim Reason for [...] by: Ian Boyer MD 04/23/2025 09:00 AM [facility] Dictated By: Ian Boyer MD Signed By: <Electronically signed by Ian Boyer MD in OV> 04/23/25 0900 DD/ 1745 TD/TT: 04/20/25 1803 Barrel Bridge Assembler: Procedure Note Donotuseinterpreter, Image - 04/23/2025 [place] [address] Magnetic Resonance Report Signed Patient: Carolyn Kebede [facility]# : [id number] : 1955cct:[id number] Age/Sex: 70 / FADM Date: 04/20/25 Loc: HO.MRI Attending Dr: Ruslan TORRES Ordering Physician: Ruslan Escalera Date of Service: 04/20/25 Procedure(s): MR cervical spine wo con Accession Number(s): [id number] cc: Ruslan Escalera; Naomi Kim Reason for [...] by: Ian Boyer MD 04/23/2025 09:00 AM [facility] Dictated By: Ian Boyer MD Signed By: <Electronically signed by Ian Boyer MD in OV> 04/23/25 0900 DD/ 1745 TD/TT: 04/20/25 1803 Barrel Bridge Assembler: [facility] External Provider IMG MRI PROCEDURES Edited Result - Final * XR CERVICAL SPINE 4V (02/27/2025 1:26 PM EDT) Anatomical Region Laterality Modality Abdomen Radiographic Svetlana ging 02/27/2025 1:26 PM EDT Narrative 02/28/2025 7:32 AM EDT [facility] [address] [place] [address] Drive [address] [place] [address] XRay Report Signed Patient: Carolyn Kebede I MR# : [id number] : 1955 Acct:[id number] Age/Sex: 70 / F ADM Date: 02/27/25 Loc: RICHELLECARLA Attending Dr: Ruslan TORRES Ordering Physician: Ruslan Escalera Date of Service: 02/27/25 Procedure(s): XR cervical spine 4V Accession Number(s): [id number] cc: Ruslan Esaclera; Naomi Kim Reason for Exam: M50.90 - [...] 02/28/25 0729 DD/ 1326 TD/TT: 02/27/25 1334 Barrel Bridge Assembler: Procedure Note Donotuseinterpreter, Image - 02/28/2025 [facility] [address] [place] [address] [address] [place] [address] XRay Report Signed Patient: Carolyn Kebede IMR# : [id number] : 1955cct:[id number] Age/Sex: 70 / FADM Date: 02/27/25 Loc: KITTY Attending Dr: Ruslan TORRES Ordering Physician: Ruslan Escalera Date of Service: 02/27/25 Procedure(s): XR cervical spine 4V Accession Number(s): [id number] cc: Ruslan Escalera; Naomi Kim Reason for [...] 02/28/25 0729 DD/ 1326 TD/TT: 02/27/25 1334 Barrel Bridge Assembler: [facility] External Provider IMG XR PROCEDURES Final Result * Hemoglobin A1c (11/27/2024 12:22 PM EDT) Hemoglobin A1c 5.8 <6.0 % [facility] Comment:Hemoglobin A1C Refer ence Range Adults: 4.8 - 6.0 % Non diabetic: < 6.0 % Goal: < 7.0 %Additional Action Suggested: > 8.0 %Note: Hemoglobin A1c results are invalid for patients with abnormal amounts of HbF. Blood transfusions may impact the HbA1c concentration in the patient sample. Estimated Average Glucose 120 mg/dL [facility] Comment:eAG = Estimated ave rage glucose which is %A1C expressed asaverage glucose, using the formula of the S8U-PllswyzHiprvba Glucose study (ADAG), Diabetes Care, Vol.31,#8,Dec. 2007 Blood Venous blood specimen / Unknown 11/27/2024 12:22 PM EDT 11/27/2024 1:43 PM EDT Naomi Kim MD LAB BLOOD ORDERABLES Final Res ult [facility] [address] [place] [address] [phone] * BI Mammogram Screening Tomosynthesis Bilateral (11/20/2024 2:00 PM EDT) Anatomical Region Laterality Modality Breast Bilateral Mammography 11/20/2024 2:00 PM EDT Narrative 12/01/2024 9:51 PM EDT [facility] [address] [place] [address] Mammography Report Signed Patient: Carolyn Kebede I MR# : [id number] : 1955 Acct:[id number] Age/Sex: 69 / F ADM Date: 11/20/24 Loc: MAMMO Attending Dr: Naomi Kim MD Ordering Physician: Naomi Kim Results: 1Negative Date of Service: 11/20/24 Follow Up: 1 Year From Orig inal Mammogram Procedure(s): MM tomosynthesis screening BI Accession Number(s): [id number] cc: Naomi Kim EXAMINATION: MM SCREENING DIGITAL [...] 12/01/24 2148 DD/ 1400 TD/TT: 11/20/24 1413 Barrel Bridge Assembler: Procedure Note Donotuseinterpreter, Image - 12/01/2024 [facility] [address] [place], [place] [address] Mammography Report Signed Patient: Carolyn Kebede [facility]# : [id number] : 1955cct:[id number] Age/Sex: 69 / FADM Date: 11/20/24 Loc: ALFREDO Attending Dr: Naomi Kim MD Ordering Physician: Gonzalo Kimults: 1Negative Date of Service: 11/20/24Follow Up: 1 Year From Orig inal Mammogram Procedure(s): MM tomosynthesis screening BI Accession Number(s): [id number] cc: Naomi Kim EXAMINATION: MM SCREENING DIGITAL [...] 12/01/24 2148 DD/ 1400 TD/TT: 11/20/24 1413 Barrel Bridge Assembler: Naomi Kim MD [facility] BI PROCEDURES Edited Resul t - Final * Pap Smear (03/17/2024 11:36 AM EDT) 03/17/2024 11:3 6 AM EDT 03/20/2024 8:30 AM EST [facility] - 03/22/2024 11:46 AM EST ----- ------- Name: Carolyn Kebede I Age/Sex: 69/F : 1955 Unit#: [id number] Attend Dr: Naomi Kim Re03/17/24 Status: DEP REF Location: [facility]OHHCLNP Disch: ----- ------- SPEC : [id number] RECD: 03/20/24 STATUS: KATELYNN HERNANDEZ NUM: [id number] MAURO: 03/17/24-[address]: Naomi Kim ENTERED: 03/20/24-8 SP TYPE: Pap Smr OT DR: ORDERED: Pap Smear Interpretation Satisfactory for evaluation. Negative for intraepithelial lesion or malignancy. Atrophic. Mild inflammation. HPV High Risk: Negative HPV Genotyping 16: Negative HPV Genotyping 18: Negative Clinical Information LMP: Unknown date Previous PAP test: 2021, WNL Other history: No postmenopausal bleeding Material Received ThinPrep-Cervical ----- ------- Signed (signature on file) JOE Duron ([facility]) 03/22/24 1146 ----- ------- END OF REPORT us Naomi Kim MD LAB CYTOLOGY ORDERABLES Final Result Performing Organization Address City/[facility]/ZIP Co de Phone Number [facility] [address] [place] [address] [phone] * (ABNORMAL) Lipid Panel, Standard (02/15/2023 11:51 AM EDT) Triglycerides 108 <150 mg/dL [facility] Comment:Desirable Triglyceri de: less than 150 mg/dLBorderline High Triglyceride 150-199 mg/dLHigh Triglyceride: 200-499 mg/dLVery High Triglyceride: greater than or equal to 5OO mg/dL Cholesterol 201(H) <200 mg/dL [facility] Comment:Desirable Cholestero l: less than 200 mg/dLBorderline High Cholesterol: 200-239 mg/dLHigh Cholesterol: greater than 239 mg/dL LDL Cholesterol Calculated 132(H) <100 mg/dL [facility] Comment:Desirable LDL: less than 100 mg/dLNear Optimal/Above Optimal LDL: 110- 129 mg/dLBorderline High LDL: 130-159 mg/dLHigh LDL: 160-189 mg/dLVery High LDL: greater than or equal to 190 mg/dL HDL Cholesterol 48 >40 mg/dL [facility] Comment:Desirable HDL: great er than 40 mg/dL Note: This HDL assay may give artificially low results in patients with liver disease. Blood Venous blood specimen / Unknown 02/15/2023 11:51 AM EDT 02/15/2023 1:18 PM EDT us Naomi Kim MD LAB BLOOD ORDERABLES Final Res ult [facility] [address] [place] [address] [phone] * HPV mRNA E6/E7 REFLEX TO HPV 16, 18/45 (10/02/2020 10:16 AM EDT) HPV nRNA E6/E7 Not Detected Not Detected [facility] Comment: Methodology: Manager Business Development Hospice-Mediated Amplification This assay detects E6/E7 viral messenger RNA (mRNA) from 14 high-risk HPV types (16,18,31,33,35,39,45,51,52,56,58,59,66,68). The analytical performance characteristics of this assay have been determined by [employer]. The modifications have not been cleared or approved by the FDA. This assay has been validated pursuant to the CLIA regulations and is used for clinical purposes. For additional information, please refer to http://education.[employer]/faq/WPU873g0 (This link if provided for information/ educational purposes only.) 10/02/2020 10:1 6 AM EDT Naomi Kim MD LAB CYTOLOGY ORDERABLES Final Result Performing Organization Address [facility] de Phone Number [facility] Anywhere [address] * HEPATITIS C AB W/REFL TO HCV RNA, QN, PCR (09/20/2020 3:34 PM EDT) Pathologist [facility] HEPATITIS C ANTIBODY NON-REACT BENITO NON-REACT BENITO [facility] INDEX 0.01 <1.00 [facility] Comment: HCV antibody was non-reactive. There is no laboratory evidence of HCV infection. In most cases, no further action is required. However, if recent HCV exposure is suspected, a test for HCV RNA (test code 72522) is suggested. For additional information please refer to http://education.[employer]/faq/YMF57t4 (This link is being provided for informational/ educational purposes only.) 09/20/2020 3:34 PM EDT Naomi Kim MD HISTORICAL/NON ORDERABLE LABS Final Result Performing Organization Address [facility] Co de Phone Number [facility] [address] from Last 3 Months or Most Recently Relevant to Health Maintenance Insurance [facility] STANDARD [facility] DUAL COMPLETE Care Teams Major League Baseball Player Relationship Specialty Start Date End Date Naomi Kim MD [address] [place] [address] PCP - General Family Medicine 08/26/20
== END 2025-05-15 13:21 ==
LOC: HO.MAMMO 13:20
PROVIDERS: PCP General Practice; Visit Provider General Practice
DX: Z78.0 Asymptomatic menopausal state (principal)
CPT/HCPCS: 77080

== ENCOUNTER → 2025-05-15 13:30 | Outpatient (BNV) | payer OTHER, SELFPAY | PROVIDERS: PCP General Practice; Visit Provider Radiology Diagnostic Radiology | DX: E28.39 Other primary ovarian failure (principal) | CPT/HCPCS: 77080 ==